=== PATIENT | male | born 1940 | race Caucasian/White ===

== ENCOUNTER 2019-05-25 17:40 | Inpatient (IN) ==
[2019-05-25] MEDS ORDERED: LACTATED RINGERS 1,000 ML IV ONE (18:02)
--- NOTE | 2019-05-25 18:04 | Emergency Department Note ---
Altered Mental Status HPI - General Chief Complaint: Altered Mental Status Stated Complaint: Weakness, Confusion Time Seen by Provider: 05/25/19 17:51 Source: patient Mode of arrival: ambulatory Limitations: no limitations - History of Present Illness HPI Narrative: This patient apparently locked himself in his house and could not figure out how to get out. He is somewhat confused but does not have specific complaints other than feeling very weak in general. - Related Data Home Medications Medication Instructions Recorded Confirmed Levothyroxine [Synthroid] 0 mcg PO DAILY 11/04/18 OLANZapine [Zyprexa] 2.5 mg PO HS 05/26/19 05/26/19 Omeprazole [Prilosec] 20 mg PO DAILY 05/26/19 05/26/19 Ondansetron [Zofran ODT] 4 mg PO PRN PRN 05/26/19 05/26/19 Allergies Allergy/AdvReac Type Severity Reaction Status Date / Time clindamycin Allergy Intermediate Rash Verified 05/26/19 02:31 amitriptyline [AMITRIPTYLINE] Allergy Mild RASH, Verified 11/04/18 09:58 ITCHING Zolpidem [From Ambien] AdvReac Unknown Verified 05/26/19 02:32 BEE STING Allergy Intermediate EXCESSIVE Uncoded 01/14/15 14:18 SWELLING, ITCHING From VOLTAREN Allergy Mild RASH, Uncoded 01/14/15 14:18 ITCHING Review of Systems All systems ED: reviewed and negative except as stated. Past Medical History - Past Medical History [facility] Narrative: Medical History (Last Updated 10/11/18 @ 16:52 by Robert Ghosh DO) Hypertension, essential (Chronic) COPD (chronic obstructive pulmonary disease) (Chronic) Hypothyroidism, acquired (Chronic) Valvular heart disease (Chronic) Macular degeneration (Chronic) Degenerative joint disease, shoulder, right (Chronic) BPH (benign prostatic hyperplasia) (Chronic) Fibromyalgia (Chronic) Chronic fatigue syndrome (Chronic) Hearing loss (Chronic) Pneumonia (Resolved) Past Surgical History (Last Updated 10/11/18 @ 16:45 by Robert Ghosh DO) H/O pyloroplasty (Acute) H/O vagotomy (Acute) History of repair of hiatal hernia (Acute) S/P cataract surgery (Acute) S/P tonsillectomy (Acute) Medical history: Reports: hyperlipidemia, valvular heart disease. Denies: CHF, CVA, DM, hypertension, myocardial infarction, renal disease, TIA Psychiatric history: Denies: anxiety, depression Surgical history ED: Reports: non-contributory - Social History smoking status: Never smoker Alcohol use: Reports: Rarely (May be up to a few times a month and occasional beer) Drug use: Reports: none. Denies: marijuana Physical Exam Limitations: no limitations General appearance: alert Head: atraumatic Eye: Present: normal appearance ENT: Present: normal exam Neck: Present: normal inspection Chest: Present: normal inspection Respiratory: Present: normal lung sounds bilaterally Cardiovascular: Present: regular rate, normal rhythm, normal heart sounds Abdominal: Present: soft. Absent: distention, tenderness Neurological: Present: alert Psychiatric: Present: normal affect Skin: Present: warm, dry Course Vital Signs Temperature 97.9 F 05/25/19 17:45 Pulse Rate 80 05/25/19 17:45 Respiratory Rate 20 05/25/19 17:45 Blood Pressure 135/90 05/25/19 17:45 Pulse Oximetry (%) 99 05/25/19 17:45 Temperature 98.0 F 05/26/19 04:09 Pulse Rate 78 05/26/19 04:09 Respiratory Rate 18 05/26/19 04:09 Blood Pressure 138/75 05/26/19 04:09 Pulse Oximetry (%) 98 05/26/19 04:09 Altered Mental Status - MDM Narrative Medical decision making narrative: This patient has a history of dementia and lives alone and is becoming too confused to live alone anymore. [facility] did evaluate him as well and agree that he is unsafe to go home. He will be admitted to the hospital. - Lab Data Lab results reviewed: Yes I reviewed the patient's lab results. Result diagrams: 05/26/19 04:48 05/26/19 04:48 Lab Results 05/25/19 05/25/19 05/25/19 Range/Units 18:14 18:14 18:14 WBC 6.1 (4.5-11.0) K/mcL RBC 4.16 L (4.50-5.90) M/mcL Hgb 13.3 L (13.5-16.5) g/dL Hct 39.3 L (41.0-55.0) % MCV 94.3 (80.0-100.0) fL MCH 31.8 (26.0-34.0) pg MCHC 33.7 (31.0-36.0) g/dL RDW 15.1 H (11.5-14.5) % Plt Count 262 (140-440) K/mcL MPV 7.7 (7.4-10.4) fL Gran % 68.2 (38.0-78.0) % Lymph % (Auto) 19.5 (15.5-49.0) % [place] % (Auto) 11.4 (1.0-12.0) % Eos % (Auto) 0.6 (0.0-7.0) % Baso % (Auto) 0.3 (0.0-2.0) % Gran # 4.1 (1.8-8.0) K/mcL Lymph # (Auto) 1.2 L (1.5-4.8) K/mcL [place] # (Auto) 0.7 (0.1-0.9) K/mcL Eos # (Auto) 0 (0.0-0.7) K/mcL Baso # (Auto) 0 (0.0-0.3) K/mcL Sodium 136 (133-145) mmol/L Potassium 4.3 (3.3-5.1) mmol/L Chloride 102 (96-108) mmol/L Carbon Dioxide 20 L (22-30) mmol/L Anion Gap 14.0 (8-16) BUN 20 (8-23) mg/dl Creatinine 1.2 (0.7-1.2) mg/dl GFR Calculation 57 Glucose 143 H (70-105) mg/dL Calcium 9.3 (8.6-10.4) mg/dl Total Bilirubin 0.3 (0.0-1.0) mg/dL AST 14 (0-37) U/l ALT 9 (0-40) U/l Alkaline Phosphatase 97 (39-117) U/L Troponin T < 0.01 (0-0.03) ng/ml Total Protein 7.1 (5.9-8.4) gm/dL Albumin 4.0 (3.2-5.2) gm/dL Globulin 3.1 (2.2-3.7) gm/dL Albumin/Globulin Ratio 1.3 (1.0-2.3) TSH (0.27-5.01) uIU/ml Urine Color Urine Appearance Urine pH (5.0-9.0) Ur Specific [place] (1.000-1.035) Urine Protein (NEG) mg/dL Urine Glucose (UA) (NEG) mg/dL Urine Ketones (NEG) mg/dL Urine Occult Blood (<0.03) mg/dL Urine Nitrate (NEG) Urine Bilirubin (NEG) mg/dL Urine Urobilinogen (NEG) mg/dL Ur Leukocyte Esterase (NEG) /uL Urine RBC (0-1) /hpf Urine WBC (0-4) /hpf Ur Squamous Epith Cells (0-4) /hpf Ur Transition Epith Cell (0-2) /hpf Urine Bacteria (0) /hpf Urine Mucus (0) /hpf Ur Culture Indicated? 05/25/19 05/25/19 Range/Units 18:14 20:25 WBC (4.5-11.0) K/mcL RBC (4.50-5.90) M/mcL Hgb (13.5-16.5) g/dL Hct (41.0-55.0) % MCV (80.0-100.0) fL MCH (26.0-34.0) pg MCHC (31.0-36.0) g/dL RDW (11.5-14.5) % Plt Count (140-440) K/mcL MPV (7.4-10.4) fL Gran % (38.0-78.0) % Lymph % (Auto) (15.5-49.0) % [place] % (Auto) (1.0-12.0) % Eos % (Auto) (0.0-7.0) % Baso % (Auto) (0.0-2.0) % Gran # (1.8-8.0) K/mcL Lymph # (Auto) (1.5-4.8) K/mcL [place] # (Auto) (0.1-0.9) K/mcL Eos # (Auto) (0.0-0.7) K/mcL Baso # (Auto) (0.0-0.3) K/mcL Sodium (133-145) mmol/L Potassium (3.3-5.1) mmol/L Chloride (96-108) mmol/L Carbon Dioxide (22-30) mmol/L Anion Gap (8-16) BUN (8-23) mg/dl Creatinine (0.7-1.2) mg/dl GFR Calculation Glucose (70-105) mg/dL Calcium (8.6-10.4) mg/dl Total Bilirubin (0.0-1.0) mg/dL AST (0-37) U/l ALT (0-40) U/l Alkaline Phosphatase (39-117) U/L Troponin T (0-0.03) ng/ml Total Protein (5.9-8.4) gm/dL Albumin (3.2-5.2) gm/dL Globulin (2.2-3.7) gm/dL Albumin/Globulin Ratio (1.0-2.3) TSH 0.03 L (0.27-5.01) uIU/ml Urine Color Yellow Urine Appearance Clear Urine pH 6.0 (5.0-9.0) Ur Specific [place] 1.013 (1.000-1.035) Urine Protein Neg (NEG) mg/dL Urine Glucose (UA) Negative (NEG) mg/dL Urine Ketones 5/tr A (NEG) mg/dL Urine Occult Blood Neg (<0.03) mg/dL Urine Nitrate Neg (NEG) Urine Bilirubin Neg (NEG) mg/dL Urine Urobilinogen Neg (NEG) mg/dL Ur Leukocyte Esterase 75 A (NEG) /uL Urine RBC 2 H (0-1) /hpf Urine WBC 13 H (0-4) /hpf Ur Squamous Epith Cells < 1 (0-4) /hpf Ur Transition Epith Cell < 1 (0-2) /hpf Urine Bacteria 0 (0) /hpf Urine Mucus Few (0) /hpf Ur Culture Indicated? Yes - Radiology Data Radiology results reviewed: Yes I reviewed the patient's radiology results. Disposition Pt seen by [facility] only: No Clinical Impression: Altered mental status, Dementia Disposition: Xfer As Inpt ([facility])
[2019-05-25 18:52] LABS: Basophils # (Auto) 0 K/mcL (0.0-0.3); Basophils % (Auto) 0.3 % (0.0-2.0); Eosinophils # (Auto) 0 K/mcL (0.0-0.7); Eosinophils % (Auto) 0.6 % (0.0-7.0); Granulocytes % (Auto) 68.2 % (38.0-78.0); Hematocrit 39.3 % (41.0-55.0); Hemoglobin 13.3 g/dL (13.5-16.5); Lymphocytes # (Auto) 1.2 K/mcL (1.5-4.8); Lymphocytes % (Auto) 19.5 % (15.5-49.0); Mean Cell Volume 94.3 fL (80.0-100.0); Mean Corpuscular HGB Conc 33.7 g/dL (31.0-36.0); Mean Platelet Volume 7.7 fL (7.4-10.4); Monocytes # (Auto) 0.7 K/mcL (0.1-0.9); Monocytes % (Auto) 11.4 % (1.0-12.0); Platelet Count 262 K/mcL (140-440); RBC 4.16 M/mcL (4.50-5.90); Red Cell Distribution Width 15.1 % (11.5-14.5); WBC 6.1 K/mcL (4.5-11.0)
[2019-05-25 19:16] LABS: ALT/SGPT 9 U/l (0-40); AST/SGOT 14 U/l (0-37); Albumin/Globulin Ratio 1.3 (1.0-2.3); Alkaline Phosphatase 97 U/L (39-117); Bilirubin,Total 0.3 mg/dL (0.0-1.0); Blood Urea Nitrogen 20 mg/dl (8-23); Calcium 9.3 mg/dl (8.6-10.4); Carbon Dioxide 20 mmol/L (22-30); Chloride 102 mmol/L (96-108); Globulin 3.1 gm/dL (2.2-3.7); Glomerular Filtration Rate 57; Glucose 143 mg/dL (70-105)
--- NOTE | 2019-05-25 21:04 | Cat Scan Report ---
CLINICAL INFORMATION: Confusion COMPARISON: None. TECHNIQUE: 2.5 mm helical slices were obtained in the skull base to vertex. Following reconstruction, axial reformatted images were reviewed at bone and parenchymal windows. The exam was performed using radiation dose optimization techniques including, but not limited to, automated exposure control, adjustment of the mA and/or kV according to patient size and use of iterative reconstruction technique. FINDINGS: The ventricles, sulci, fissures, and cisterns are symmetrically enlarged compatible with mild age-related atrophy. No extra-axial fluid collections are identified. Moderate patchy chronic ischemic change in the deep cerebral white matter expected for age. The cerebrum, brainstem and cerebellum are, otherwise, unremarkable. There is no evidence of hemorrhage, mass effect, or edema. Bone windows show no osseous abnormality. IMPRESSION: Mild atrophy and chronic ischemic changes of the deep cerebral white matter expected for age. No acute finding Interpreted and Authenticated by: Denny Aranda 05/25/19
[2019-05-25 21:10] LABS: Appearance,Urine CLEAR; Bacteria,Urine 0 /hpf (0); Bilirubin,Urine NEG (NEG); Color,Urine YELLOW; Culture Indicated,Urine YES; Glucose,Urine (UA) NEGATIVE (NEG); Ketones,Urine 5/TR mg/dL (NEG); Leukocyte Esterase,Urine 75 /uL (NEG); Mucus,Urine FEW /hpf (0); Nitrate,Urine NEG (NEG); Protein,Urine NEG (NEG); Specific Gravity,Urine 1.013 (1.000-1.035); Urine Blood NEG mg/dL (<0.03); Urine RBC 2 /hpf (0-1); Urine Squamous Epithelial Cell < 1 /hpf (0-4); Urine Transitional Epi Cells < 1 /hpf (0-2); Urine WBC 13 /hpf (0-4); Urobilinogen,Urine NEG (NEG)
[2019-05-25] MEDS ORDERED: NITROFURANTOIN SR 100 MG CAPSULE PO ONE (21:37)
[2019-05-25] MEDS ORDERED: OLANZapine 5 MG TABLET PO PRN (22:24)
--- NOTE | 2019-05-25 22:28 | Internal Med History&Physical ---
Medical - H&P: HPI Patient information: Note initiated : 05/25/19 at 10:25 pm Service Date, if different from initiated Date: [] Patient: Simone Schwab a 79 y/o M admitted on for Weakness, Confusion. Chief Complaint: [] History of present illness: Mr. Schwab is a 79 year old M Who currently locked himself in the house called EMS EMS arrived and they were able to get in some way. He was reported patient displayed significant confusion but became agitated by the term. EMS also reported being weak. Patient says he was [email or web address] and has been here for 3 days. Admits that he was locked in his house but did not feel like it was a big deal. I told him that urinary tract infection and that we will get treated here in the hospital, he said he could go home and take pills for that. [facility] visited with the patient has felt the patient was not safe to go home. Work-up was positive for urinary tract infection. She denies any fever chills chest pain shortness of breath headache cough. CT of the brain showed mild atrophy and chronic ischemic changes but no acute findings. Patient was admitted to [facility] and February for ischemic colitis and ended up undergoing oratory laparotomy with subsequent colectomy and colostomy. During his hospitalization he demonstrated sundowning and responded well to Zyprexa. [facility] and patient says he was there for about 3 weeks. He has been to [facility] 20 times over the last few months for various complaints mostly relating to his colostomy care but also complaining of weakness chest pain shortness of breath and fall on various occasions. She says he lives by himself occasionally with the son. He has left from the hospital and from the ED in the past AGAINST MEDICAL ADVICE. Review of Systems: Pertinent positives above. Denies headache/fever/chills/nausea/vomiting/chest or abdominal pain/cough/dyspnea/diarrhea. Many 10 point review of system reviewed negative Medical - H&P: PM Medical history: Medical History (Last Updated 10/11/18 @ 16:52 by Robert Ghosh DO) Hypertension, essential (Chronic) COPD (chronic obstructive pulmonary disease) (Chronic) Hypothyroidism, acquired (Chronic) Valvular heart disease (Chronic) Macular degeneration (Chronic) Degenerative joint disease, shoulder, right (Chronic) BPH (benign prostatic hyperplasia) (Chronic) Fibromyalgia (Chronic) Chronic fatigue syndrome (Chronic) Hearing loss (Chronic) Pneumonia (Resolved) Past Surgical History (Last Updated 10/11/18 @ 16:45 by Robert Ghosh DO) H/O pyloroplasty (Acute) H/O vagotomy (Acute) History of repair of hiatal hernia (Acute) S/P cataract surgery (Acute) S/P tonsillectomy (Acute) 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 for ischemic colitis Family history: Patient's mother at age 60 due to comp occasions associated old age Social history: Denies tobacco use occasional use alcohol Occasionally uses cane Lives by himself and occasionally with his son use Medical - H&P: Meds Home Medications Medication Instructions Recorded Confirmed Type Levothyroxine [Synthroid] 0 mcg PO DAILY 11/04/18 History Allergies Allergy/AdvReac Type Severity Reaction Status Date / Time amitriptyline [AMITRIPTYLINE] Allergy Mild RASH, Verified 11/04/18 09:58 ITCHING BEE STING Allergy Intermediate EXCESSIVE Uncoded 01/14/15 14:18 SWELLING, ITCHING From VOLTAREN Allergy Mild RASH, Uncoded 01/14/15 14:18 ITCHING Medical - H&P: Exam - Constitutional Vitals: Temp Pulse Resp BP Pulse Ox 97.9 F 81 15 145/96 97 05/25/19 17:45 05/25/19 18:16 05/25/19 21:02 05/25/19 18:31 05/25/19 18:16 Exam: General: Alert, Awake, No acute Distress Eyes/N/T: EOMI, PEERL, DMM Head/Neck: neck supple, normocephalic atraumatic CV: RRR, No murmurs, normal s1/s2 Pulm: Clear b/l, no wheezing/rhonchi/rales Abd: soft, nontender, +BS x4 Ext: no clubbing/cyanosis/edema Neuro: A&Ox4, no focal deficits, moves all extremities, CN 2-12 grossly intact, symmetrical strength b/l upper/lower, sensations intact b/l upper/lower, does appear to have some cognitive impairment in that talks about being [place] here for 3 days and made a few other statements that I could not understand. Skin: warm/dry Medical - H&P: Reslt - Labs CBC & Chem 7: 05/25/19 18:14 05/25/19 18:14 Labs: Short CBC 05/25/19 Range/Units 18:14 WBC 6.1 (4.5-11.0) K/mcL Hgb 13.3 L (13.5-16.5) g/dL Hct 39.3 L (41.0-55.0) % Plt Count 262 (140-440) K/mcL BMP 05/25/19 18:14 Sodium 136 Potassium 4.3 Chloride 102 Carbon Dioxide 20 L BUN 20 Creatinine 1.2 Glucose 143 H Calcium 9.3 Cardiac Enzymes 05/25/19 Range/Units 18:14 Troponin T < 0.01 (0-0.03) ng/ml Liver Function 05/25/19 Range/Units 18:14 Total Bilirubin 0.3 (0.0-1.0) mg/dL AST 14 (0-37) U/l ALT 9 (0-40) U/l Alkaline Phosphatase 97 (39-117) U/L Albumin 4.0 (3.2-5.2) gm/dL Urine 05/25/19 Range/Units 20:25 Urine Color Yellow Urine Appearance Clear Urine pH 6.0 (5.0-9.0) Ur Specific [place] 1.013 (1.000-1.035) Urine Protein Neg (NEG) mg/dL Urine Glucose (UA) Negative (NEG) mg/dL - Impressions The brain with atrophy and ischemic changes but nothing acute Medical - H&P: A/P - Narrative A/P Narrative: A: *UTI: *Encephalopathy, acute on chronic superimposed on underlying dementia: 2/2 above *Dementia: *h/o ischemic colitis with colectomy/colostomy in February @ [facility]: *COPD: *Hypothyroidism: *GERD: * P: -Rocephin, pending UC -IVF -Risk for delirium, PRN Zyprexa -Continue home Zyprexa nightly - -Case management for placement -PT/OT -ppx: Lovenox/home PPI
[2019-05-25] MEDS ORDERED: cefTRIAXone 1 GM VIAL ONE (23:31)
[2019-05-26] MEDS ORDERED: OLANZapine 2.5 MG TABLET PO ONE ×2 (00:30→00:34)
[2019-05-26] MEDS ORDERED: LACTULOSE 20 GM/30 ML ORAL.SOL PO PRN (00:51)
[2019-05-26] MEDS ORDERED: MAGNESIUM SULFATE 2 GM/50 ML BAG IV PRN (00:51)
[2019-05-26] MEDS ORDERED: POLYETHYLENE GLYCOL 3350 17 GM PACKET PO PRN (00:51)
[2019-05-26] MEDS ORDERED: IPRATROPIUM/ALBUTEROL 3 ML AMPUL.NEB NEB PRN (00:51)
[2019-05-26] MEDS ORDERED: POTASSIUM CHLORIDE 20 MEQ TABLET PO PRN ×2 (00:51)
[2019-05-26] MEDS ORDERED: PROMETHAZINE 25 MG TABLET PO PRN (00:51)
[2019-05-26] MEDS ORDERED: POTASSIUM CHLORIDE 40 MEQ in DEXTROSE 5% IN WATER 500 ML IV PRN (00:51)
[2019-05-26] MEDS ORDERED: ONDANSETRON 4 MG/2 ML VIAL IV PRN (00:51)
[2019-05-26] MEDS ORDERED: cefTRIAXone 1 GM in DEXTROSE 5% IN WATER 50 ML IV SCH (00:51)
[2019-05-26] MEDS ORDERED: SENNOSIDES 1 TABLET PO PRN (00:51)
[2019-05-26] MEDS ORDERED: OLANZapine 5 MG TABLET PO PRN (00:51)
[2019-05-26] MEDS: OLANZapine 5 MG TABLET PO SCH ×2 (02:02→21:24)
[2019-05-26] MEDS: 0.9 % SODIUM CHLORIDE 1,000 ML IV SCH ×2 (02:15→15:08)
[2019-05-26] MEDS: 0.9 % SODIUM CHLORIDE 10 ML SYRINGE IV SCH ×3 (05:35→21:25)
[2019-05-26 06:34] LABS: Basophils # (Auto) 0 K/mcL (0.0-0.3); Basophils % (Auto) 0.1 % (0.0-2.0); Eosinophils # (Auto) 0.1 K/mcL (0.0-0.7); Eosinophils % (Auto) 1.1 % (0.0-7.0); Hematocrit 36.4 % (41.0-55.0); Hemoglobin 12.2 g/dL (13.5-16.5); Lymphocytes # (Auto) 1.7 K/mcL (1.5-4.8); Lymphocytes % (Auto) 25.1 % (15.5-49.0); Mean Cell Volume 95.7 fL (80.0-100.0); Mean Corpuscular HGB Conc 33.4 g/dL (31.0-36.0); Mean Platelet Volume 7.7 fL (7.4-10.4); Monocytes # (Auto) 0.8 K/mcL (0.1-0.9); Monocytes % (Auto) 11.7 % (1.0-12.0); Platelet Count 231 K/mcL (140-440); Red Cell Distribution Width 14.4 % (11.5-14.5); WBC 6.8 K/mcL (4.5-11.0)
[2019-05-26 06:48] LABS: ALT/SGPT 8 U/l (0-40); AST/SGOT 12 U/l (0-37); Albumin 3.6 gm/dL (3.2-5.2); Albumin/Globulin Ratio 1.2 (1.0-2.3); Alkaline Phosphatase 86 U/L (39-117); Bilirubin,Direct < 0.2 mg/dL (0.0-0.3); Bilirubin,Total 0.2 mg/dL (0.0-1.0); Blood Urea Nitrogen 16 mg/dl (8-23); Calcium 8.7 mg/dl (8.6-10.4); Carbon Dioxide 23 mmol/L (22-30); Chloride 106 mmol/L (96-108); Globulin 2.9 gm/dL (2.2-3.7); Glomerular Filtration Rate 57; Glucose 104 mg/dL (70-105); Lactate Dehydrogenase 171 U/L (94-250); Phosphorous 4.2 mg/dL (2.7-4.5); Triglycerides 59 mg/dl (<150); Uric Acid 5.9 mg/dL (2.5-8.0)
--- NOTE | 2019-05-26 07:26 | Internal Med Progress Note ---
Medical - PN: Subj Patient information: Note initiated : 05/26/19 at 7:22 am Service Date, if different from initiated Date: [] Patient: Simone Schwab a 79 y/o M admitted on 05/26/19 for Weakness, Confusion. Chief Complaint: [] Interval history: Mr. Schwab is a 79 year old M Who currently locked himself in the house called EMS EMS arrived and they were able to get in some way. He was reported patient displayed significant confusion but became agitated by the term. EMS also reported being weak. [facility] been here for [facility]. Admits that he was locked in his house but did not feel like it was a big deal. I told him that urinary tract infection and that we will get treated here in the hospital, he said he could go home and take pills for that. [facility] visited with the patient has felt the patient was not safe to go home. Work-up was positive for urinary tract infection. She denies any fever chills chest pain shortness of breath headache cough. CT of the brain showed mild atrophy and chronic ischemic changes but no acute findings. Patient was admitted to [facility] and February for ischemic colitis and ended up undergoing oratory laparotomy with subsequent colectomy and colostomy. During his hospitalization he demonstrated sundowning and responded well to Zyprexa. He was discharged to a detention facility and patient says he was there for about 3 weeks. He has been to [facility] 20 times over the last few months for various complaints mostly relating to his colostomy care but also complaining of weakness chest pain shortness of breath and fall on various occasions. She says he lives by himself occasionally with the son. He has left from the hospital and from the ED in the past AGAINST MEDICAL ADVICE. 05/26 Slept well. No new complaints. No overnight events. Review of Systems: denies headache/fever/chills/nausea/vomiting/chest or abdominal p ain/cough/dyspnea/diarrhea. Otherwise see above. - Constitutional Vitals: Vital Signs Temp Pulse Resp BP Pulse Ox 98.0 F 78 18 138/75 98 05/26/19 04:09 05/26/19 04:09 05/26/19 04:09 05/26/19 04:09 05/26/19 04:09 Period Temp Pulse Resp BP Sys/Rodriguez Pulse Ox Last 24 Hr 97.8 F-98.0 F 77-82 15-23 135-150/75-96 97-99 Intake and Output 05/25/19 05/26/19 05/26/19 21:59 05:59 13:59 Intake Total 1000 100 Output Total 150 125 Balance 1000 -50 -125 Weight 65.771 kg 62 kg Intake & Output: Intake & Output 05/25/19 05/26/19 05/26/19 21:59 05:59 13:59 Intake Total 1000 100 Output Total 150 125 Balance 1000 -50 -125 Weight 65.771 kg 62 kg Intake: IV 1000 Lactated Ringers 1,000 ml @ 1000 Wide Open IV BOLUS ONE Rx#: [id number] Oral 100 Output: Void Amount 150 125 Other: Urine Color Light Jada Light Jada Urine Odor Strong Strong Stool Color Brown Stool Consistency Liquid Exam: General: Alert, Awake, No acute Distress Eyes/N/T: EOMI, Head/Neck: neck supple, CV: RRR, No murmurs, Pulm: Clear b/l, no wheezing/rhonchi/rales Abd: soft, nontender, +BS x4 Ext: no clubbing/cyanosis/edema Neuro: Alert, oriented, no focal deficits, moves all extremities, Skin: warm/dry Medical - PN: Obj Da - Labs CBC & Chem 7: 05/26/19 04:48 05/26/19 04:48 Labs: Abnormal Lab Results 05/26/19 05/25/19 05/25/19 04:48 20:25 18:14 RBC 3.80 L Hgb 12.2 L Hct 36.4 L RDW Lymph # (Auto) Carbon Dioxide Glucose TSH 0.03 L Urine Ketones 5/tr A Ur Leukocyte Esterase 75 A Urine RBC 2 H Urine WBC 13 H 05/25/19 05/25/19 18:14 18:14 RBC 4.16 L Hgb 13.3 L Hct 39.3 L RDW 15.1 H Lymph # (Auto) 1.2 L Carbon Dioxide 20 L Glucose 143 H TSH Urine Ketones Ur Leukocyte Esterase Urine RBC Urine WBC Meds: Medications Acetaminophen (Tylenol) 650 mg PO Q6HP PRN PRN Reason: PAIN/FEVER > 101 Albuterol/Ipratropium (Duoneb) 3 ml NEB Q4HP PRN PRN Reason: Shortness Of Breath Ceftriaxone Sodium (Rocephin) 1 gm IV Q24H [facility] Docusate Sodium (Colace) 100 mg PO BID [facility] Enoxaparin Sodium (Lovenox) 40 mg SQ DAILY [facility] Famotidine (Pepcid) 20 mg PO BID [facility] Potassium Chloride 40 meq/ (Dextrose) 520 mls @ 130 mls/hr IV UD PRN PRN Reason: Potassium < 3 Magnesium Sulfate (Magnesium Sulfate) 2 gm in 50 mls @ 50 mls/hr IV UD PRN PRN Reason: Magnesium </= 1.6 Sodium Chloride (Sodium Chloride 0.9%) 1,000 mls @ 100 mls/hr IV .Q10H [facility] Stop: 05/26/19 20:50 Last Admin: 05/26/19 02:15 Dose: 100 mls/hr Documented by: Lactulose (Cephulac) 10 gm PO DAILYP PRN PRN Reason: Constipation Olanzapine (Zyprexa) 5 mg PO BIDP PRN PRN Reason: Agitation Olanzapine (Zyprexa) 2.5 mg PO HS [facility] Last Admin: 05/26/19 02:02 Dose: Not Given Documented by: Ondansetron HCl (Zofran) 4 mg IV Q4HP PRN PRN Reason: Nausea And Vomiting Polyethylene Glycol (Miralax) 17 gm PO DAILYP PRN PRN Reason: Constipation Potassium Chloride (Kdur) 40 meq PO UD PRN PRN Reason: Potssium is 3-3.5 Potassium Chloride (Kdur) 40 meq PO UD PRN PRN Reason: Potassium < 3 Promethazine HCl (Phenergan) 0 mg PO Q6HP PRN PRN Reason: Nausea And Vomiting Senna (Senokot) 2 tab PO HSP PRN PRN Reason: Constipation Sodium Chloride (Saline Flush) 10 ml IV Q8 [facility] Last Admin: 05/26/19 05:35 Dose: Not Given Documented by: Medical - PN: A/P - Time Spent With Patient Total time spent is greater than 50% in coordination of care (as documented) at patient's floor/unit and/or counseling patient: - Narrative A/P Narrative: A: *UTI: *Encephalopathy, acute on chronic superimposed on underlying dementia: 2/2 above -improved, likely at baseline *Dementia: may not be safe for self-care at home; has been to [facility] ED 20x's in past few months for various complaints, most of which have been colostomy care *h/o ischemic colitis with colectomy/colostomy in February @ [facility]: *COPD(not on home o2): *Hypothyroidism: low TSH, T4 slightly high, T3 ok *GERD: * P: -Rocephin, pending UC -high Risk for delirium, PRN Zyprexa -Continue home Zyprexa nightly -decrease home levothyroxine, -clarify home meds -Case management for placement -PT/OT -ppx: Lovenox/home PPI Medical - PN: Qual - Stroke Symptom Onset Unknown: No - VTE Deep Vein Thrombosis/Pulmonary Embolism Present on Admission: No
[2019-05-26 07:59] LABS: Free T3 2.8 pg/ml (2.0-4.4); Free T4 (Free Thyroxine) 1.78 ng/dl (0.7-1.7)
[2019-05-26] MEDS: DOCUSATE SODIUM 100 MG CAPSULE PO SCH ×2 (08:44→21:24)
[2019-05-26] MEDS: ENOXAPARIN 40 MG/0.4 ML SYRINGE SQ SCH (08:44)
[2019-05-26] MEDS: FAMOTIDINE 20 MG TABLET PO SCH ×2 (08:44→21:25)
[2019-05-26] MEDS: cefTRIAXone 1 GM VIAL IV SCH (15:08)
--- NOTE | 2019-05-26 17:11 | Discharge Summary ---
Medical - DS: Prov Patient information: Note initiated : 05/26/19 at 5:07 pm Service Date, if different from initiated Date: [] Patient: Simone Schwab 79 y/o M admitted on 05/26/19 for Weakness, Confusion. Chief Complaint: [] Date of admission: 05/26/19 00:08 Discharge date: 05/28/19 Primary care physician: Denny Land Consults: 05/25/19 Consult to Physician [CONS] Stat Comment: Consulting Provider: Javi Leigh Reason For Exam: Physician to Consult Medical - DS: Meds - Discharge Medications Prescriptions: Ciprofloxacin [Cipro] 500 mg PO BID #6 tab Levothyroxine [Synthroid] 100 mcg PO QAMAC #30 tab Active and Home Medications: Home Medications Levothyroxine Sodium [Synthroid] 137 mcg PO QAM 05/26/19 [History Confirmed 05/26/19 Last Taken Unknown] OLANZapine [Zyprexa] 2.5 mg PO HS 05/26/19 [History Confirmed 05/26/19 Last Taken Unknown] Omeprazole [Prilosec] 20 mg PO DAILY 05/26/19 [History Confirmed 05/26/19 Last Taken Unknown] Ondansetron [Zofran ODT] 4 mg PO PRN PRN 05/26/19 [History Confirmed 05/26/19 Last Taken Unknown] Medical - DS: Hosp Hospital Course: Mr. Schwab is a 79 year old M Who currently locked himself in the house called EMS EMS arrived and they were able to get in some way. He was reported patient displayed significant confusion but became agitated by the term. EMS also reported being weak. Patient says he was [employer] and has been here for 3 days. Admits that he was locked in his house but did not feel like it was a big deal. I told him that urinary tract infection and that we will get treated here in the hospital, he said he could go home and take pills for that. [facility] visited with the patient has felt the patient was not safe to go home. Work-up was positive for urinary tract infection. She denies any fever chills chest pain shortness of breath headache cough. CT of the brain showed mild atrophy and chronic ischemic changes but no acute findings. Patient was admitted to [facility] for ischemic colitis and ended up undergoing oratory laparotomy with subsequent colectomy and colostomy. During his hospitalization he demonstrated sundowning and responded well to Zyprexa. He was discharged to a detention facility and patient says he was there for about 3 weeks. He has been to [facility] 20 times over the last few months for various complaints mostly relating to his colostomy care but also complaining of weakness chest pain shortness of breath and fall on various occasions. She says he lives by himself occasionally with the son. He has left from the hospital and from the ED in the past AGAINST MEDICAL ADVICE. 05/26 Slept well. No new complaints. No overnight events. Seen by [facility] today and cleared from their standpoint 05/27 No overnight events. Sleeping well. [facility] evaluated him yesterday felt he was safe to go home. Apparently adult protective services felt it was not safe for him to be at home based on a visit to the house. Discussed this with the patient and he seemed to be okay with going to facility at this time. However, it would not be surprised if he ended up leaving AMA back to his house. 05/28 Slept well no new complaints. Wanting to go somewhere whether or not at home or to the facility. Case management working on placement. Plan was to attempt to get him to a facility patient was initially agreeable however patient's tired of waiting around for her to be arranged and decided to leave AGAINST MEDICAL ADVICE. Discharge diagnosis: UTI confusion dementia COPD hypothyroidism - Time Spent with Patient Total time spent providing and/or coordinating discharge services: Greater than 30 minutes Medical - DS: Exam - Constitutional Vitals: Vital Signs Temp Pulse Pulse Pulse Resp BP BP 05/26/19 12:00 97.0 F 78 18 05/26/19 08:00 97.0 F 78 18 05/26/19 04:09 98.0 F 78 18 05/26/19 00:08 97.8 F 82 82 18 141/79 05/25/19 23:16 77 148/85 05/25/19 23:13 77 150/90 05/25/19 21:02 15 05/25/19 18:31 16 145/96 05/25/19 18:16 81 23 H 147/91 05/25/19 18:00 18 145/93 05/25/19 17:55 79 20 135/90 05/25/19 17:45 97.9 F 80 20 135/90 BP Pulse Ox 05/26/19 12:00 110/61 100 05/26/19 08:00 129/54 100 05/26/19 04:09 138/75 98 05/26/19 00:08 141/79 97 05/25/19 23:16 97 05/25/19 23:13 98 05/25/19 21:02 05/25/19 18:31 05/25/19 18:16 97 05/25/19 18:00 05/25/19 17:55 98 05/25/19 17:45 99 Intake and Output 05/26/19 05/26/19 05/26/19 05:59 13:59 21:59 Intake Total 100 2180 Output Total 150 425 Balance -50 1755 Intake: IV 1000 Sodium Chloride 0.9% 1,000 ml @ 1000 100 mls/hr IV .Q10H [place] Rx#: [id number] Oral 100 1180 Output: Void Amount 150 425 Other: Meal Lunch Percent of Meal Consumed 100% Feeding Ability Assist with Tray Set Up Urine Color Light Jada Light Jada Urine Odor Strong Strong Stool Color Brown Brown Yellow Stool Consistency Liquid Liquid # Voids 3 Weight 62 kg Medical - DS: Data Labs on day of discharge: Labs from last 24 hours 05/26/19 05/26/19 05/26/19 04:48 04:48 04:48 WBC 6.8 RBC 3.80 L Hgb 12.2 L Hct 36.4 L MCV 95.7 MCH 32.0 MCHC 33.4 RDW 14.4 Plt Count 231 MPV 7.7 Gran % 62.0 Lymph % (Auto) 25.1 [place] % (Auto) 11.7 Eos % (Auto) 1.1 Baso % (Auto) 0.1 Gran # 4.2 Lymph # (Auto) 1.7 [place] # (Auto) 0.8 Eos # (Auto) 0.1 Baso # (Auto) 0 Sodium 139 Potassium 4.1 Chloride 106 Carbon Dioxide 23 Anion Gap 10.0 BUN 16 Creatinine 1.2 GFR Calculation 57 Glucose 104 Uric Acid 5.9 Calcium 8.7 Phosphorus 4.2 Magnesium 2.3 Total Bilirubin 0.2 Direct Bilirubin < 0.2 GGT 18 AST 12 ALT 8 Alkaline Phosphatase 86 Lactate Dehydrogenase 171 Troponin T Total Protein 6.5 Albumin 3.6 Globulin 2.9 Albumin/Globulin Ratio 1.2 Triglycerides 59 TSH Free T4 1.78 H Free T3 pg/mL 2.8 Urine Color Urine Appearance Urine pH Ur Specific [place] Urine Protein Urine Glucose (UA) Urine Ketones Urine Occult Blood Urine Nitrate Urine Bilirubin Urine Urobilinogen Ur Leukocyte Esterase Urine RBC Urine WBC Ur Squamous Epith Cells Ur Transition Epith Cell Urine Bacteria Urine Mucus Ur Culture Indicated? 05/25/19 05/25/19 05/25/19 20:25 18:14 18:14 WBC RBC Hgb Hct MCV MCH MCHC RDW Plt Count MPV Gran % Lymph % (Auto) [place] % (Auto) Eos % (Auto) Baso % (Auto) Gran # Lymph # (Auto) [place] # (Auto) Eos # (Auto) Baso # (Auto) Sodium Potassium Chloride Carbon Dioxide Anion Gap BUN Creatinine GFR Calculation Glucose Uric Acid Calcium Phosphorus Magnesium Total Bilirubin Direct Bilirubin GGT AST ALT Alkaline Phosphatase Lactate Dehydrogenase Troponin T < 0.01 Total Protein Albumin Globulin Albumin/Globulin Ratio Triglycerides TSH 0.03 L Free T4 Free T3 pg/mL Urine Color Yellow Urine Appearance Clear Urine pH 6.0 Ur Specific [place] 1.013 Urine Protein Neg Urine Glucose (UA) Negative Urine Ketones 5/tr A Urine Occult Blood Neg Urine Nitrate Neg Urine Bilirubin Neg Urine Urobilinogen Neg Ur Leukocyte Esterase 75 A Urine RBC 2 H Urine WBC 13 H Ur Squamous Epith Cells < 1 Ur Transition Epith Cell < 1 Urine Bacteria 0 Urine Mucus Few Ur Culture Indicated? Yes 05/25/19 05/25/19 18:14 18:14 WBC 6.1 RBC 4.16 L Hgb 13.3 L Hct 39.3 L MCV 94.3 MCH 31.8 MCHC 33.7 RDW 15.1 H Plt Count 262 MPV 7.7 Gran % 68.2 Lymph % (Auto) 19.5 [place]ahan % (Auto) 11.4 Eos % (Auto) 0.6 Baso % (Auto) 0.3 Gran # 4.1 Lymph # (Auto) 1.2 L [place] # (Auto) 0.7 Eos # (Auto) 0 Baso # (Auto) 0 Sodium 136 Potassium 4.3 Chloride 102 Carbon Dioxide 20 L Anion Gap 14.0 BUN 20 Creatinine 1.2 GFR Calculation 57 Glucose 143 H Uric Acid Calcium 9.3 Phosphorus Magnesium Total Bilirubin 0.3 Direct Bilirubin GGT AST 14 ALT 9 Alkaline Phosphatase 97 Lactate Dehydrogenase Troponin T Total Protein 7.1 Albumin 4.0 Globulin 3.1 Albumin/Globulin Ratio 1.3 Triglycerides TSH Free T4 Free T3 pg/mL Urine Color Urine Appearance Urine pH Ur Specific [place] Urine Protein Urine Glucose (UA) Urine Ketones Urine Occult Blood Urine Nitrate Urine Bilirubin Urine Urobilinogen Ur Leukocyte Esterase Urine RBC Urine WBC Ur Squamous Epith Cells Ur Transition Epith Cell Urine Bacteria Urine Mucus Ur Culture Indicated? Preliminary micro results at discharge 05/25/19 20:24 Urine Culture - Preliminary Urine - Clean Void [facility] Medical - DS: A/P - Patient/Caregiver Discharge Instructions Activity: increase activity as tolerated Diet: Regular Diet Additional Instructions: Follow-up thyroid function tests with PCP outpatient Prescriptions: Ciprofloxacin [Cipro] 500 mg PO BID #6 tab Levothyroxine [Synthroid] 100 mcg PO QAMAC #30 tab - Follow up Plan Follow up with: Denny Land DO [Primary Care Provider] - Disposition: Left Against Medical Advice Prognosis: Undetermined Rehab Potential: Fair Overall status at discharge: patient is back to baseline Medical - DS: Qual - VTE Deep Vein Thrombosis/Pulmonary Embolism Present on Admission: No
[2019-05-27] MEDS: 0.9 % SODIUM CHLORIDE 10 ML SYRINGE IV SCH ×3 (06:09→20:19)
--- NOTE | 2019-05-27 09:17 | Internal Med Progress Note ---
Medical - PN: Subj Patient information: Note initiated : 05/27/19 at 9:13 am Service Date, if different from initiated Date: [] Patient: Simone Schwab a 79 y/o M admitted on 05/26/19 for Weakness, Confusion. Chief Complaint: [] Interval history: Mr. Schwab is a 79 year old M Who currently locked himself in the house called EMS EMS arrived and they were able to get in some way. He was reported patient displayed significant confusion but became agitated by the term. EMS also reported being weak. [facility] been here for [facility]. Admits that he was locked in his house but did not feel like it was a big deal. I told him that urinary tract infection and that we will get treated here in the hospital, he said he could go home and take pills for that. [facility] visited with the patient has felt the patient was not safe to go home. Work-up was positive for urinary tract infection. She denies any fever chills chest pain shortness of breath headache cough. CT of the brain showed mild atrophy and chronic ischemic changes but no acute findings. Patient was admitted to [facility] and February for ischemic colitis and ended up undergoing oratory laparotomy with subsequent colectomy and colostomy. During his hospitalization he demonstrated sundowning and responded well to Zyprexa. He was [facility] to a [facility] facility and patient says he was there for about 3 weeks. He has been to [facility] 20 times over the last few months for various complaints mostly relating to his colostomy care but also complaining of weakness chest pain shortness of breath and fall on various occasions. She says he lives by himself occasionally with the son. He has left from the hospital and from the ED in the past AGAINST MEDICAL ADVICE. 05/26 Slept well. No new complaints. No overnight events. 05/27 No overnight events. Sleeping well. [facility] evaluated him yesterday felt he was safe to go home. Apparently adult protective services felt it was not safe for him to be at home based on a visit to the house. Discussed this with the patient and he seemed to be okay with going to facility at this time. However, it would not be surprised if he ended up leaving AMA back to his house. Review of Systems: denies headache/fever/chills/nausea/vomiting/chest or abdominal pain/co ugh/dyspnea/diarrhea. Otherwise see above. - Constitutional Vitals: Vital Signs Temp Pulse Resp BP Pulse Ox 98.1 F 71 20 127/83 97 05/27/19 08:00 05/27/19 08:00 05/27/19 08:00 05/27/19 08:00 05/27/19 08:00 Period Temp Pulse Resp BP Sys/Rodriguez Pulse Ox Last 24 Hr 97.0 F-98.4 F 63-84 16-20 110-137/58-83 97-100 Intake and Output 05/26/19 05/27/19 05/27/19 21:59 05:59 13:59 Intake Total 940 1220 Output Total 400 1225 Balance 540 -5 Weight 63.276 kg Intake & Output: Intake & Output 05/26/19 05/27/19 05/27/19 21:59 05:59 13:59 Intake Total 940 1220 Output Total 400 1225 Balance 540 -5 Weight 63.276 kg Intake: Oral 940 1220 Output: Void Amount 350 700 Stool 50 525 Other: Meal Nourishment/Supplement Percent of Meal Consumed 100% Feeding Ability Independent Nourishment/Supplement name Icecream, Tea, Hot [place], Juice, [place] Crackers Urine Appearance Clear Clear Urine Color Dark Yellow Dark Yellow Urine Odor Strong Strong Stool Color Brown Brown Yellow Stool Consistency Liquid Soft Liquid # Voids 1 1 1 Exam: General: Alert, Awake, No acute Distress Eyes/N/T: EOMI, Head/Neck: neck supple, CV: RRR, No murmurs, Pulm: Clear b/l, no wheezing/rhonchi/rales Abd: soft, nontender, +BS x4 Ext: no clubbing/cyanosis/edema Neuro: Alert, oriented, no focal deficits, moves all extremities, Skin: warm/dry Medical - PN: Obj Da - Labs CBC & Chem 7: 05/26/19 04:48 05/26/19 04:48 Labs: Abnormal Lab Results 05/26/19 05/26/19 05/25/19 04:48 04:48 20:25 RBC 3.80 L Hgb 12.2 L Hct 36.4 L RDW Lymph # (Auto) Carbon Dioxide Glucose TSH Free T4 1.78 H Urine Ketones 5/tr A Ur Leukocyte Esterase 75 A Urine RBC 2 H Urine WBC 13 H 05/25/19 05/25/19 05/25/19 18:14 18:14 18:14 RBC 4.16 L Hgb 13.3 L Hct 39.3 L RDW 15.1 H Lymph # (Auto) 1.2 L Carbon Dioxide 20 L Glucose 143 H TSH 0.03 L Free T4 Urine Ketones Ur Leukocyte Esterase Urine RBC Urine WBC Meds: Medications Acetaminophen (Tylenol) 650 mg PO Q6HP PRN PRN Reason: PAIN/FEVER > 101 Albuterol/Ipratropium (Duoneb) 3 ml NEB Q4HP PRN PRN Reason: Shortness Of Breath Ceftriaxone Sodium (Rocephin) 1 gm IV Q24H [facility] Last Admin: 05/26/19 15:08 Dose: 1 gm Documented by: Docusate Sodium (Colace) 100 mg PO BID [facility] Last Admin: 05/26/19 21:24 Dose: Not Given Documented by: Enoxaparin Sodium (Lovenox) 40 mg SQ DAILY [facility] Last Admin: 05/26/19 08:44 Dose: 40 mg Documented by: Famotidine (Pepcid) 20 mg PO BID [facility] Last Admin: 05/26/19 21:25 Dose: 20 mg Documented by: Potassium Chloride 40 meq/ (Dextrose) 520 mls @ 130 mls/hr IV UD PRN PRN Reason: Potassium < 3 Magnesium Sulfate (Magnesium Sulfate) 2 gm in 50 mls @ 50 mls/hr IV UD PRN PRN Reason: Magnesium </= 1.6 Lactulose (Cephulac) 10 gm PO DAILYP PRN PRN Reason: Constipation Olanzapine (Zyprexa) 5 mg PO BIDP PRN PRN Reason: Agitation Olanzapine (Zyprexa) 2.5 mg PO HS [facility] Last Admin: 05/26/19 21:24 Dose: 2.5 mg Documented by: Ondansetron HCl (Zofran) 4 mg IV Q4HP PRN PRN Reason: Nausea And Vomiting Polyethylene Glycol (Miralax) 17 gm PO DAILYP PRN PRN Reason: Constipation Potassium Chloride (Kdur) 40 meq PO UD PRN PRN Reason: Potssium is 3-3.5 Potassium Chloride (Kdur) 40 meq PO UD PRN PRN Reason: Potassium < 3 Promethazine HCl (Phenergan) 0 mg PO Q6HP PRN PRN Reason: Nausea And Vomiting Senna (Senokot) 2 tab PO HSP PRN PRN Reason: Constipation Sodium Chloride (Saline Flush) 10 ml IV Q8 [place] Last Admin: 05/27/19 06:09 Dose: Not Given Documented by: Medical - PN: A/P - Time Spent With Patient Total time spent is greater than 50% in coordination of care (as documented) at patient's floor/unit and/or counseling patient: - Narrative A/P Narrative: A: *UTI: *Encephalopathy, acute on chronic superimposed on underlying dementia: 2/2 above -improved, likely at baseline *Dementia: may not be safe for self-care at home; has been to [facility] ED 20x's in past few months for various complaints, most of which have been colostomy care *h/o ischemic colitis with colectomy/colostomy in February @ [facility]: *COPD(not on home o2): *Hypothyroidism: low TSH, T4 slightly high, T3 ok *GERD: * P: -Rocephin to cipro -high Risk for delirium, PRN Zyprexa -cleared by Q, but APS feels his home environment might not be safe - thus looking for placement -Continue home Zyprexa nightly -decrease home levothyroxine, -clarify home meds -Case management for placement -PT/OT -ppx: Lovenox/home PPI Medical - PN: Qual - Stroke Symptom Onset Unknown: No - VTE Deep Vein Thrombosis/Pulmonary Embolism Present on Admission: No
[2019-05-27] MEDS: ENOXAPARIN 40 MG/0.4 ML SYRINGE SQ SCH (14:48)
[2019-05-27] MEDS: cefTRIAXone 1 GM VIAL IV SCH (14:49)
[2019-05-27] MEDS: FAMOTIDINE 20 MG TABLET PO SCH ×2 (14:50→20:19)
[2019-05-27] MEDS: DOCUSATE SODIUM 100 MG CAPSULE PO SCH ×2 (14:50→20:19)
[2019-05-27] MEDS: ACETAMINOPHEN 325 MG TABLET PO PRN (17:14)
[2019-05-27] MEDS: CIPROFLOXACIN 500 MG TABLET PO SCH (20:18)
[2019-05-27] MEDS: OLANZapine 5 MG TABLET PO SCH (20:18)
[2019-05-27] MEDS ORDERED: MELATONIN 3 MG TABLET PO PRN (22:10)
[2019-05-28] MEDS: ACETAMINOPHEN 325 MG TABLET PO PRN (00:11)
[2019-05-28] MEDS: 0.9 % SODIUM CHLORIDE 10 ML SYRINGE IV SCH (05:24)
[2019-05-28] MEDS ORDERED: LEVOTHYROXINE 100 MCG TABLET PO SCH (07:30)
[2019-05-28] MEDS: CIPROFLOXACIN 500 MG TABLET PO SCH (10:02)
[2019-05-28] MEDS: DOCUSATE SODIUM 100 MG CAPSULE PO SCH ×2 (10:02→10:08)
[2019-05-28] MEDS: ENOXAPARIN 40 MG/0.4 ML SYRINGE SQ SCH (10:03)
[2019-05-28] MEDS: FAMOTIDINE 20 MG TABLET PO SCH (10:03)
--- NOTE | 2019-05-28 10:22 | Internal Med Progress Note ---
Medical - PN: Subj Patient information: Note initiated : 05/28/19 at 10:20 am Service Date, if different from initiated Date: [] Patient: Simone Schwab a 79 y/o M admitted on 05/26/19 for Weakness, Confusion. Chief Complaint: [] Interval history: Mr. Schwab is a 79 year old M Who currently locked himself in the house called EMS EMS arrived and they were able to get in some way. He was reported patient displayed significant confusion but became agitated by the term. EMS also reported being weak. [facility] has been here for [facility] days. Admits that he was locked in his house but did not feel like it was a big deal. I told him that urinary tract infection and that we will get treated here in the hospital, he said he could go home and take pills for that. [facility] visited with the patient has felt the patient was not safe to go home. Work-up was positive for urinary tract infection. She denies any fever chills chest pain shortness of breath headache cough. CT of the brain showed mild atrophy and chronic ischemic changes but no acute findings. Patient was admitted to [facility] and February for ischemic colitis and ended up undergoing oratory laparotomy with subsequent colectomy and colostomy. During his hospitalization he demonstrated sundowning and responded well to Zyprexa. [facility] and patient says he was there for about 3 weeks. He has been to [facility] 20 times over the last few months for various complaints mostly relating to his colostomy care but also complaining of weakness chest pain shortness of breath and fall on various occasions. She says he lives by himself occasionally with the son. He has left from the hospital and from the ED in the past AGAINST MEDICAL ADVICE. 05/26 Slept well. No new complaints. No overnight events. 05/27 No overnight events. Sleeping well. [facility] evaluated him yesterday felt he was safe to go home. Apparently adult protective services felt it was not safe for him to be at home based on a visit to the house. Discussed this with the patient and he seemed to be okay with going to facility at this time. However, it would not be surprised if he ended up leaving AMA back to his house. 05/28 Slept well no new complaints. Wanting to go somewhere whether or not at home or to the facility. Case management working on placement. Review of Systems: denies headache/fever/chills/nausea/vomiting/chest or abdominal pain/cough/dyspnea/diarrhea. Otherwise see above. - Constitutional Vitals: Vital Signs Temp Pulse Resp BP Pulse Ox 98.5 F 77 24 H 115/72 99 05/28/19 07:57 05/28/19 07:57 05/28/19 07:57 05/28/19 07:57 05/28/19 07:57 Period Temp Pulse Resp BP Sys/Rodriguez Pulse Ox Last 24 Hr 98.1 F-98.5 F 67-84 16-24 110-127/67-73 96-100 Intake and Output 05/27/19 05/28/19 05/28/19 21:59 05:59 13:59 Intake Total 480 800 Output Total 700 Balance 480 100 Weight 63.049 kg Intake & Output: Intake & Output 05/27/19 05/28/19 05/28/19 21:59 05:59 13:59 Intake Total 480 800 Output Total 700 Balance 480 100 Weight 63.049 kg Intake: Oral 480 800 Output: Void Amount 250 Stool 450 Other: Meal Dinner Percent of Meal Consumed 100% Urine Appearance Clear Urine Color Dark Yellow Urine Odor Normal Stool Size Moderate Stool Color Brown Brown Stool Consistency Soft Soft Liquid # Voids 1 1 Exam: General: Alert, Awake, No acute Distress Eyes/N/T: EOMI, Head/Neck: neck supple, CV: RRR, No murmurs, Pulm: Clear b/l, no wheezing/rhonchi/rales Abd: soft, nontender, +BS x4 Ext: no clubbing/cyanosis/edema Neuro: Alert, oriented, no focal deficits, moves all extremities, Skin: warm/dry Medical - PN: Obj Da - Labs CBC & Chem 7: 05/26/19 04:48 05/26/19 04:48 Labs: Abnormal Lab Results 05/26/19 05/26/19 05/25/19 04:48 04:48 20:25 RBC 3.80 L Hgb 12.2 L Hct 36.4 L RDW Lymph # (Auto) Carbon Dioxide Glucose TSH Free T4 1.78 H Urine Ketones 5/tr A Ur Leukocyte Esterase 75 A Urine RBC 2 H Urine WBC 13 H 10/13/19 10/13/19 10/13/19 18:14 18:14 18:14 RBC 4.16 L Hgb 13.3 L Hct 39.3 L RDW 15.1 H Lymph # (Auto) 1.2 L Carbon Dioxide 20 L Glucose 143 H TSH 0.03 L Free T4 Urine Ketones Ur Leukocyte Esterase Urine RBC Urine WBC Meds: Medications Acetaminophen (Tylenol) 650 mg PO Q6HP PRN PRN Reason: PAIN/FEVER > 101 Last Admin: 05/28/19 00:11 Dose: 650 mg Documented by: Albuterol/Ipratropium (Duoneb) 3 ml NEB Q4HP PRN PRN Reason: Shortness Of Breath Ciprofloxacin (Cipro) 500 mg PO BID [facility]; Protocol Last Admin: 05/28/19 10:02 Dose: 500 mg Documented by: Docusate Sodium (Colace) 100 mg PO BID [facility] Last Admin: 05/28/19 10:08 Dose: Not Given Documented by: Enoxaparin Sodium (Lovenox) 40 mg SQ DAILY [facility] Last Admin: 05/28/19 10:03 Dose: 40 mg Documented by: Famotidine (Pepcid) 20 mg PO BID [facility] Last Admin: 05/28/19 10:03 Dose: 20 mg Documented by: Potassium Chloride 40 meq/ (Dextrose) 520 mls @ 130 mls/hr IV UD PRN PRN Reason: Potassium < 3 Magnesium Sulfate (Magnesium Sulfate) 2 gm in 50 mls @ 50 mls/hr IV UD PRN PRN Reason: Magnesium </= 1.6 Lactulose (Cephulac) 10 gm PO DAILYP PRN PRN Reason: Constipation Levothyroxine Sodium (Synthroid) 100 mcg PO QAMAC [facility] Last Admin: 05/28/19 10:02 Dose: 100 mcg Documented by: Melatonin (Melatonin 3mg Tablet) 3 mg PO HSP PRN PRN Reason: Insomnia Last Admin: 05/27/19 23:24 Dose: 3 mg Documented by: Olanzapine (Zyprexa) 5 mg PO BIDP PRN PRN Reason: Agitation Last Admin: 05/27/19 21:49 Dose: 5 mg Documented by: Olanzapine (Zyprexa) 2.5 mg PO HS [facility] Last Admin: 05/27/19 20:18 Dose: 2.5 mg Documented by: Ondansetron HCl (Zofran) 4 mg IV Q4HP PRN PRN Reason: Nausea And Vomiting Polyethylene Glycol (Miralax) 17 gm PO DAILYP PRN PRN Reason: Constipation Potassium Chloride (Kdur) 40 meq PO UD PRN PRN Reason: Potssium is 3-3.5 Potassium Chloride (Kdur) 40 meq PO UD PRN PRN Reason: Potassium < 3 Promethazine HCl (Phenergan) 0 mg PO Q6HP PRN PRN Reason: Nausea And Vomiting Senna (Senokot) 2 tab PO HSP PRN PRN Reason: Constipation Sodium Chloride (Saline Flush) 10 ml IV Q8 [place] Last Admin: 05/28/19 05:24 Dose: 10 ml Documented by: Medical - PN: A/P - Time Spent With Patient Total time spent is greater than 50% in coordination of care (as documented) at patient's floor/unit and/or counseling patient: - Narrative A/P Narrative: A: *UTI: *Encephalopathy, acute on chronic superimposed on underlying dementia: 2/2 above -Resolved, likely at baseline *Dementia: may not be safe for self-care at home; has been to [facility] ED 20x's in past few months for various complaints, most of which have been colostomy care *h/o ischemic colitis with colectomy/colostomy in February @ [facility]: *COPD(not on home o2): *Hypothyroidism: low TSH, T4 slightly high, T3 ok *GERD: * P: -cipro -high Risk for delirium, PRN Zyprexa -cleared by Q, but APS feels his home environment might not be safe - thus looking for placement -Continue home Zyprexa nightly -decreased home levothyroxine, -Case management for placement -PT/OT -ppx: Lovenox/home PPI Medical - PN: Qual - Stroke Symptom Onset Unknown: No - VTE Deep Vein Thrombosis/Pulmonary Embolism Present on Admission: No
== END 2019-05-28 14:20 | disposition left against medical advice (07) | DRG 690 ==
LOC: ED 17:40 → ICU 05-26 00:08 → MEDSUR 05-26 15:40
PROVIDERS: ADMIT Internal Medicine; ATTEND Internal Medicine

== ENCOUNTER 2019-08-26 14:33 | Observation (INO) ==
--- NOTE | 2019-08-26 15:39 | XRay Report ---
CLINICAL INFORMATION: knee pain COMPARISON: None. 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 No osseous abnormality.. Mild periarticular soft tissue swelling seen bilaterally. 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
[2019-08-26 15:46] LABS: Appearance,Urine CLEAR; Bacteria,Urine 0 /hpf (0); Bilirubin,Urine NEG (NEG); Color,Urine YELLOW; Culture Indicated,Urine NO; Glucose,Urine (UA) NEGATIVE (NEG); Ketones,Urine NEG (NEG); Leukocyte Esterase,Urine NEG /uL (NEG); Mucus,Urine FEW /hpf (0); Nitrate,Urine NEG (NEG); Protein,Urine NEG (NEG); Specific Gravity,Urine 1.009 (1.000-1.035); Urine Blood NEG mg/dL (<0.03); Urine RBC 1 /hpf (0-1); Urine Squamous Epithelial Cell 0 /hpf (0-4); Urine Transitional Epi Cells < 1 /hpf (0-2); Urine WBC 2 /hpf (0-4); Urobilinogen,Urine NEG (NEG)
[2019-08-26 15:51] LABS: Basophils # (Auto) 0.06 K/mcL (0.00-0.30); Basophils % (Auto) 0.6 % (0.0-2.0); Eosinophils # (Auto) 0.04 K/mcL (0.00-0.70); Eosinophils % (Auto) 0.4 % (0.0-7.0); Granulocytes % (Auto) 72.7 % (38.0-78.0); Hemoglobin 12.6 g/dL (13.7-17.5); Lymphocytes # (Auto) 1.86 K/mcL (1.50-4.80); Lymphocytes % (Auto) 17.9 % (15.5-49.0); Mean Cell Volume 89.6 fL (80.0-100.0); Mean Corpuscular HGB Conc 34.1 g/dL (31.0-36.0); Mean Platelet Volume 9.7 fL (7.4-10.4); Monocytes # (Auto) 0.87 K/mcL (0.10-0.90); Monocytes % (Auto) 8.4 % (1.0-12.0); Platelet Count 286 K/mcL (140-440); RBC 4.13 M/mcL (4.63-6.08); Red Cell Distribution Width 14.6 % (11.5-14.5); WBC 10.4 K/mcL (4.50-11.00)
[2019-08-26 16:08] LABS: ALT/SGPT 11 U/l (0-40); AST/SGOT 18 U/l (0-37); Albumin 4.1 gm/dL (3.2-5.2); Albumin/Globulin Ratio 1.5 (1.0-2.3); Alkaline Phosphatase 102 U/L (39-117); Bilirubin,Total 0.5 mg/dL (0.0-1.0); Blood Urea Nitrogen 19 mg/dl (8-23); Calcium 9.6 mg/dl (8.6-10.4); Carbon Dioxide 19 mmol/L (22-30); Chloride 102 mmol/L (96-108); Globulin 2.8 gm/dL (2.2-3.7); Glomerular Filtration Rate 71; Glucose 104 mg/dL (70-105)
--- NOTE | 2019-08-26 17:00 | Emergency Department Note ---
Altered Mental Status HPI - General Chief Complaint: Altered Mental Status Stated Complaint: altered mental status Time Seen by Provider: 08/26/19 14:43 Source: patient, EMS Mode of arrival: ambulatory Limitations: altered mental status - History of Present Illness HPI Narrative: 79-year-old male with known moderate to severe dementia comes in via EMS at the request of APS. Apparently he left [facility] yesterday AMA after being admitted for abdominal pain. He was found wandering outside inappropriately dressed for the weather; his ostomy bag was inappropriately open. He is unable to give me any meaningful history or review of system. However he does note that he is having some knee and ankle pain-although he is walking around without difficulty I reviewed the notes from [facility]-he was discharged AMA with some Zyprexa - Related Data Home Medications Medication Instructions Recorded Confirmed aspirin 325 mg tablet 325 mg PO QDAY 07/21/19 07/21/19 divalproex 250 mg tablet,delayed 250 mg PO BID 07/21/19 07/21/19 release ibuprofen 200 mg tablet 200 mg PO QID PRN 07/21/19 07/21/19 levothyroxine 137 mcg capsule 137 mcg PO QDAY 07/21/19 07/21/19 melatonin 10 mg capsule 10 mg PO HS PRN 07/21/19 07/21/19 tamsulosin 0.4 mg capsule 0.4 mg PO QDAY 07/21/19 07/21/19 Allergies Allergy/AdvReac Type Severity Reaction Status Date / Time bee venom protein (honey bee) Allergy Severe Swelling Verified 07/21/19 12:05 amitriptyline [AMITRIPTYLINE] AdvReac Mild RASH, Verified 07/21/19 12:05 ITCHING clindamycin AdvReac Mild Rash Verified 07/21/19 12:05 Diclofenac [From Voltaren] AdvReac Mild Rash Verified 07/21/19 12:05 Zolpidem [From Ambien] AdvReac Unknown Unknown Verified 07/21/19 12:05 Review of Systems Limitations: ROS unobtainable due to patients medical condition Past Medical History - Past Medical History [facility] Narrative: Medical History (Last Reviewed 07/22/19 @ 08:37 by Aruna Wild DO) Hypertension, essential (Chronic) COPD (chronic obstructive pulmonary disease) (Chronic) Hypothyroidism, acquired (Chronic) Valvular heart disease (Chronic) Macular degeneration (Chronic) Degenerative joint disease, shoulder, right (Chronic) BPH (benign prostatic hyperplasia) (Chronic) Fibromyalgia (Chronic) Chronic fatigue syndrome (Chronic) Hearing loss (Chronic) Pneumonia (Resolved) Past Surgical History (Last Updated 10/11/18 @ 16:45 by Robert Ghosh DO) H/O pyloroplasty (Acute) H/O vagotomy (Acute) History of repair of hiatal hernia (Acute) S/P cataract surgery (Acute) S/P tonsillectomy (Acute) Medical history: Reports: hyperlipidemia, valvular heart disease, other (Ischemic colitis). Denies: CHF, CVA, DM, hypertension, myocardial infarction, renal disease, TIA Psychiatric history: Denies: anxiety, depression Surgical history ED: Reports: colostomy - Social History smoking status: Former smoker Alcohol use: Reports: Rarely (May be up to a few times a month and occasional beer) Drug use: Reports: none. Denies: marijuana Physical Exam Patient is able to walk and move around without difficulty. He does not appear to have any balance issues. Thin male. No acute distress resting comfortably. Normocephalic atraumatic. Conjunctive are clear sclera white nonicteric. No nasal discharge or congestion. Oropharynx pink and moist. Posterior pharynx is clear. Neck is supple without lymphadenopathy thyromegaly or carotid bruit. Heart is regular rate and rhythm no murmur appreciated. Lungs are clear to auscultation bilaterally without wheezes rales rhonchi or respiratory distress. Abdomen is soft nontender nondistended. Ostomy bag in place with moderate amount of stool which appears to be normal brown. I do not see any leaking. No pedal edema. Alert oriented only x1. He does not know where he is why he is here or what is going on. He does answer questions but oftentimes he is totally inappropriate and appears to have no sense of social norms. His behavior is random and unpredictable. His thoughts are tangential and delusional. He confabulates. Limitations: altered mental status Course Vital Signs Pulse Rate 65 08/26/19 14:40 Respiratory Rate 18 08/26/19 14:40 Blood Pressure 152/70 08/26/19 14:40 Pulse Oximetry (%) 100 08/26/19 14:40 Pulse Rate 66 08/26/19 17:36 Respiratory Rate 16 08/26/19 17:36 Blood Pressure 152/70 08/26/19 17:36 Pulse Oximetry (%) 99 08/26/19 17:36 Altered Mental Status - Lab Data Lab results reviewed: Yes I reviewed the patient's lab results. Result diagrams: 08/26/19 15:14 08/26/19 15:14 Lab Results 08/26/19 08/26/19 08/26/19 Range/Units 14:42 15:14 15:14 WBC 10.4 (4.50-11.00) K/mcL RBC 4.13 L (4.63-6.08) M/mcL Hgb 12.6 L (13.7-17.5) g/dL Hct 37.0 L (40.1-51.0) % MCV 89.6 (80.0-100.0) fL MCH 30.5 (26.0-34.0) pg MCHC 34.1 (31.0-36.0) g/dL RDW 14.6 H (11.5-14.5) % Plt Count 286 (140-440) K/mcL MPV 9.7 (7.4-10.4) fL Gran % 72.7 (38.0-78.0) % Lymph % (Auto) 17.9 (15.5-49.0) % [place] % (Auto) 8.4 (1.0-12.0) % Eos % (Auto) 0.4 (0.0-7.0) % Baso % (Auto) 0.6 (0.0-2.0) % Gran # 7.54 (1.80-8.00) K/mcL Lymph # (Auto) 1.86 (1.50-4.80) K/mcL [place] # (Auto) 0.87 (0.10-0.90) K/mcL Eos # (Auto) 0.04 (0.00-0.70) K/mcL Baso # (Auto) 0.06 (0.00-0.30) K/mcL VBG Lactic Acid (0.5-2.0) mmol/L Sodium 137 (133-145) mmol/L Potassium 3.7 (3.3-5.1) mmol/L Chloride 102 (96-108) mmol/L Carbon Dioxide 19 L (22-30) mmol/L Anion Gap 16.0 (8-16) BUN 19 (8-23) mg/dl Creatinine 1.0 (0.7-1.2) mg/dl GFR Calculation 71 Glucose 104 (70-105) mg/dL Calcium 9.6 (8.6-10.4) mg/dl Total Bilirubin 0.5 (0.0-1.0) mg/dL AST 18 (0-37) U/l ALT 11 (0-40) U/l Alkaline Phosphatase 102 (39-117) U/L Total Protein 6.9 (5.9-8.4) gm/dL Albumin 4.1 (3.2-5.2) gm/dL Globulin 2.8 (2.2-3.7) gm/dL Albumin/Globulin Ratio 1.5 (1.0-2.3) Urine Color Yellow Urine Appearance Clear Urine pH 7.0 (5.0-9.0) Ur Specific [place] 1.009 (1.000-1.035) Urine Protein Neg (NEG) mg/dL Urine Glucose (UA) Negative (NEG) mg/dL Urine Ketones Neg (NEG) mg/dL Urine Occult Blood Neg (<0.03) mg/dL Urine Nitrate Neg (NEG) Urine Bilirubin Neg (NEG) mg/dL Urine Urobilinogen Neg (NEG) mg/dL Ur Leukocyte Esterase Neg (NEG) /uL Urine RBC 1 (0-1) /hpf Urine WBC 2 (0-4) /hpf Ur Squamous Epith Cells 0 (0-4) /hpf Ur Transition Epith Cell < 1 (0-2) /hpf Urine Bacteria 0 (0) /hpf Urine Mucus Few (0) /hpf Ur Culture Indicated? No 08/26/19 Range/Units 15:14 WBC (4.50-11.00) K/mcL RBC (4.63-6.08) M/mcL Hgb (13.7-17.5) g/dL Hct (40.1-51.0) % MCV (80.0-100.0) fL MCH (26.0-34.0) pg MCHC (31.0-36.0) g/dL RDW (11.5-14.5) % Plt Count (140-440) K/mcL MPV (7.4-10.4) fL Gran % (38.0-78.0) % Lymph % (Auto) (15.5-49.0) % [place] % (Auto) (1.0-12.0) % Eos % (Auto) (0.0-7.0) % Baso % (Auto) (0.0-2.0) % Gran # (1.80-8.00) K/mcL Lymph # (Auto) (1.50-4.80) K/mcL [place] # (Auto) (0.10-0.90) K/mcL Eos # (Auto) (0.00-0.70) K/mcL Baso # (Auto) (0.00-0.30) K/mcL VBG Lactic Acid 2.1 H (0.5-2.0) mmol/L Sodium (133-145) mmol/L Potassium (3.3-5.1) mmol/L Chloride (96-108) mmol/L Carbon Dioxide (22-30) mmol/L Anion Gap (8-16) BUN (8-23) mg/dl Creatinine (0.7-1.2) mg/dl GFR Calculation Glucose (70-105) mg/dL Calcium (8.6-10.4) mg/dl Total Bilirubin (0.0-1.0) mg/dL AST (0-37) U/l ALT (0-40) U/l Alkaline Phosphatase (39-117) U/L Total Protein (5.9-8.4) gm/dL Albumin (3.2-5.2) gm/dL Globulin (2.2-3.7) gm/dL Albumin/Globulin Ratio (1.0-2.3) Urine Color Urine Appearance Urine pH (5.0-9.0) Ur Specific [place] (1.000-1.035) Urine Protein (NEG) mg/dL Urine Glucose (UA) (NEG) mg/dL Urine Ketones (NEG) mg/dL Urine Occult Blood (<0.03) mg/dL Urine Nitrate (NEG) Urine Bilirubin (NEG) mg/dL Urine Urobilinogen (NEG) mg/dL Ur Leukocyte Esterase (NEG) /uL Urine RBC (0-1) /hpf Urine WBC (0-4) /hpf Ur Squamous Epith Cells (0-4) /hpf Ur Transition Epith Cell (0-2) /hpf Urine Bacteria (0) /hpf Urine Mucus (0) /hpf Ur Culture Indicated? - Radiology Data Radiology results reviewed: Yes I reviewed the patient's radiology results. I reviewed knee x-rays which show significant arthritis and loss of joint space Disposition Pt seen by SENIOR BACK END JAVA DEVELOPER/PA only: No Clinical Impression: Dementia Qualifiers: Dementia type: unspecified type Dementia behavioral disturbance: with behavioral disturbance Qualified Code(s): F03.91 - Unspecified dementia with behavioral disturbance Knee osteoarthritis Qualifiers: Osteoarthritis type: unspecified Laterality: bilateral Qualified Code(s): M17.0 - Bilateral primary osteoarthritis of knee Summary: Patient is clearly at his baseline dementia and we do not have any evidence of recurrent infection or inflammatory disease process to account for his worsening behavior. Suspect his dementia is just getting worse with behavioral disturbances becoming more common. While I do not have a medical diagnosis to admit the patient; APS agentMaddy, came and saw the patient. She is planning on placing him under guardianship with [facility] and looking for a home for him. He is a hoarder and cannot go home to his house nor can he go to the detention where he was before because of his violent behavior. He will need to go to a lockdown unit. He is on medical hold currently as he is a danger to himself and others because of his severe dementia-we cannot let him go home Bilateral knee x-rays show significant osteoarthritis. He is given Tylenol and then a little bit of hydrocodone later on for pain. He was given Toradol as well He was having trouble settling down so we gave him 5 mg of Haldol which worked for a little bit. We then gave him a little bit of Seroquel as the day wore on. He ended up getting a second dose for total of 200 mg. Patient was able to sleep later on the evening Disposition: Still a Patient Condition: Fair Referrals: Denny Land DO [Primary Care Provider] -
[2019-08-26] MEDS ORDERED: HALOPERIDOL LACTATE 5 MG/ML VIAL IM ONE (17:30)
[2019-08-26] MEDS ORDERED: ACETAMINOPHEN 325 MG TABLET PO ONE (18:37)
[2019-08-26] MEDS ORDERED: QUEtiapine 100 MG TABLET PO ONE ×2 (18:39→22:02)
[2019-08-26] MEDS ORDERED: KETOROLAC 10 MG TABLET PO ONE (20:13)
[2019-08-26] MEDS ORDERED: KETOROLAC 60 MG/2 ML VIAL IM ONE (21:21)
[2019-08-26] MEDS ORDERED: HYDROcodone/APAP 5/325MG TABLET PO ONE (23:23)
[2019-08-27] MEDS ORDERED: LORazepam 1 MG TABLET PO ONE ×2 (15:11→21:52)
[2019-08-27] MEDS ORDERED: HALOPERIDOL LACTATE 5 MG/ML VIAL IM ONE (17:17)
--- NOTE | 2019-08-27 21:17 | Emergency Department Note ---
Altered Mental Status HPI - General Chief Complaint: Altered Mental Status Stated Complaint: altered mental status Time Seen by Provider: 08/26/19 14:43 Source: patient, EMS Mode of arrival: ambulatory Limitations: altered mental status - History of Present Illness HPI Narrative: I took over care of this patient at [address] Naqvi. - Related Data Home Medications Medication Instructions Recorded Confirmed aspirin 325 mg tablet 325 mg PO QDAY 07/21/19 07/21/19 divalproex 250 mg tablet,delayed 250 mg PO BID 07/21/19 07/21/19 release ibuprofen 200 mg tablet 200 mg PO QID PRN 07/21/19 07/21/19 levothyroxine 137 mcg capsule 137 mcg PO QDAY 07/21/19 07/21/19 melatonin 10 mg capsule 10 mg PO HS PRN 07/21/19 07/21/19 tamsulosin 0.4 mg capsule 0.4 mg PO QDAY 07/21/19 07/21/19 Allergies Allergy/AdvReac Type Severity Reaction Status Date / Time bee venom protein (honey bee) Allergy Severe Swelling Verified 07/21/19 12:05 amitriptyline [AMITRIPTYLINE] AdvReac Mild RASH, Verified 07/21/19 12:05 ITCHING clindamycin AdvReac Mild Rash Verified 07/21/19 12:05 Diclofenac [From Voltaren] AdvReac Mild Rash Verified 07/21/19 12:05 Zolpidem [From Ambien] AdvReac Unknown Unknown Verified 07/21/19 12:05 Past Medical History - Past Medical History Medical history: Reports: hyperlipidemia, valvular heart disease, other (Ischemic colitis). Denies: CHF, CVA, DM, hypertension, myocardial infarction, renal disease, TIA Psychiatric history: Denies: anxiety, depression Surgical history ED: Reports: colostomy - Social History smoking status: Former smoker Alcohol use: Reports: Rarely (May be up to a few times a month and occasional beer) Drug use: Reports: none. Denies: marijuana Physical Exam Limitations: altered mental status Course Vital Signs Pulse Rate 65 08/26/19 14:40 Respiratory Rate 18 08/26/19 14:40 Blood Pressure 152/70 08/26/19 14:40 Pulse Oximetry (%) 100 08/26/19 14:40 Pulse Rate 77 08/27/19 23:09 Respiratory Rate 14 08/27/19 23:09 Blood Pressure 132/68 08/27/19 23:09 Pulse Oximetry (%) 94 08/27/19 23:09 Altered Mental Status - MDM Narrative Medical decision making narrative: This patient has been quite calm and stable throughout his stay here today. However he is been getting up and wandering vaughn does not seem to want to stay in his room. We did give him Ativan p.o. and finally some Haldol 5 mg IM. He is now in his room sleeping or watching TV. This patient continued to remain quite stable during the night. He was up walking around the ER occasionally. He requested something to help him sleep and we gave him 2 mg of Ativan p.o. He did sleep during the night. He has not been combative agitated or aggressive at all. At this time he still awaits placement. - Lab Data Result diagrams: 08/26/19 15:14 08/26/19 15:14 Lab Results 08/26/19 08/26/19 08/26/19 Range/Units 14:42 15:14 15:14 WBC 10.4 (4.50-11.00) K/mcL RBC 4.13 L (4.63-6.08) M/mcL Hgb 12.6 L (13.7-17.5) g/dL Hct 37.0 L (40.1-51.0) % MCV 89.6 (80.0-100.0) fL MCH 30.5 (26.0-34.0) pg MCHC 34.1 (31.0-36.0) g/dL RDW 14.6 H (11.5-14.5) % Plt Count 286 (140-440) K/mcL MPV 9.7 (7.4-10.4) fL Gran % 72.7 (38.0-78.0) % Lymph % (Auto) 17.9 (15.5-49.0) % [place] % (Auto) 8.4 (1.0-12.0) % Eos % (Auto) 0.4 (0.0-7.0) % Baso % (Auto) 0.6 (0.0-2.0) % Gran # 7.54 (1.80-8.00) K/mcL Lymph # (Auto) 1.86 (1.50-4.80) K/mcL [place] # (Auto) 0.87 (0.10-0.90) K/mcL Eos # (Auto) 0.04 (0.00-0.70) K/mcL Baso # (Auto) 0.06 (0.00-0.30) K/mcL VBG Lactic Acid (0.5-2.0) mmol/L Sodium 137 (133-145) mmol/L Potassium 3.7 (3.3-5.1) mmol/L Chloride 102 (96-108) mmol/L Carbon Dioxide 19 L (22-30) mmol/L Anion Gap 16.0 (8-16) BUN 19 (8-23) mg/dl Creatinine 1.0 (0.7-1.2) mg/dl GFR Calculation 71 Glucose 104 (70-105) mg/dL Calcium 9.6 (8.6-10.4) mg/dl Total Bilirubin 0.5 (0.0-1.0) mg/dL AST 18 (0-37) U/l ALT 11 (0-40) U/l Alkaline Phosphatase 102 (39-117) U/L Total Protein 6.9 (5.9-8.4) gm/dL Albumin 4.1 (3.2-5.2) gm/dL Globulin 2.8 (2.2-3.7) gm/dL Albumin/Globulin Ratio 1.5 (1.0-2.3) Urine Color Yellow Urine Appearance Clear Urine pH 7.0 (5.0-9.0) Ur Specific [place] 1.009 (1.000-1.035) Urine Protein Neg (NEG) mg/dL Urine Glucose (UA) Negative (NEG) mg/dL Urine Ketones Neg (NEG) mg/dL Urine Occult Blood Neg (<0.03) mg/dL Urine Nitrate Neg (NEG) Urine Bilirubin Neg (NEG) mg/dL Urine Urobilinogen Neg (NEG) mg/dL Ur Leukocyte Esterase Neg (NEG) /uL Urine RBC 1 (0-1) /hpf Urine WBC 2 (0-4) /hpf Ur Squamous Epith Cells 0 (0-4) /hpf Ur Transition Epith Cell < 1 (0-2) /hpf Urine Bacteria 0 (0) /hpf Urine Mucus Few (0) /hpf Ur Culture Indicated? No 08/26/19 Range/Units 15:14 WBC (4.50-11.00) K/mcL RBC (4.63-6.08) M/mcL Hgb (13.7-17.5) g/dL Hct (40.1-51.0) % MCV (80.0-100.0) fL MCH (26.0-34.0) pg MCHC (31.0-36.0) g/dL RDW (11.5-14.5) % Plt Count (140-440) K/mcL MPV (7.4-10.4) fL Gran % (38.0-78.0) % Lymph % (Auto) (15.5-49.0) % [place] % (Auto) (1.0-12.0) % Eos % (Auto) (0.0-7.0) % Baso % (Auto) (0.0-2.0) % Gran # (1.80-8.00) K/mcL Lymph # (Auto) (1.50-4.80) K/mcL [place] # (Auto) (0.10-0.90) K/mcL Eos # (Auto) (0.00-0.70) K/mcL Baso # (Auto) (0.00-0.30) K/mcL VBG Lactic Acid 2.1 H (0.5-2.0) mmol/L Sodium (133-145) mmol/L Potassium (3.3-5.1) mmol/L Chloride (96-108) mmol/L Carbon Dioxide (22-30) mmol/L Anion Gap (8-16) BUN (8-23) mg/dl Creatinine (0.7-1.2) mg/dl GFR Calculation Glucose (70-105) mg/dL Calcium (8.6-10.4) mg/dl Total Bilirubin (0.0-1.0) mg/dL AST (0-37) U/l ALT (0-40) U/l Alkaline Phosphatase (39-117) U/L Total Protein (5.9-8.4) gm/dL Albumin (3.2-5.2) gm/dL Globulin (2.2-3.7) gm/dL Albumin/Globulin Ratio (1.0-2.3) Urine Color Urine Appearance Urine pH (5.0-9.0) Ur Specific [place] (1.000-1.035) Urine Protein (NEG) mg/dL Urine Glucose (UA) (NEG) mg/dL Urine Ketones (NEG) mg/dL Urine Occult Blood (<0.03) mg/dL Urine Nitrate (NEG) Urine Bilirubin (NEG) mg/dL Urine Urobilinogen (NEG) mg/dL Ur Leukocyte Esterase (NEG) /uL Urine RBC (0-1) /hpf Urine WBC (0-4) /hpf Ur Squamous Epith Cells (0-4) /hpf Ur Transition Epith Cell (0-2) /hpf Urine Bacteria (0) /hpf Urine Mucus (0) /hpf Ur Culture Indicated? Disposition Pt seen by TIMBER APPRAISER/PA only: No Clinical Impression: Dementia Qualifiers: Dementia type: unspecified type Dementia behavioral disturbance: with behavioral disturbance Qualified Code(s): F03.91 - Unspecified dementia with behavioral disturbance Knee osteoarthritis Qualifiers: Osteoarthritis type: unspecified Laterality: bilateral Qualified Code(s): M17.0 - Bilateral primary osteoarthritis of knee Disposition: Still a Patient Condition: Fair Referrals: Denny Land DO [Primary Care Provider] - Time of Disposition: 08:37
[2019-08-27] MEDS ORDERED: ZOLPIDEM 5 MG TABLET PO ONE (21:49)
--- NOTE | 2019-08-28 17:57 | Emergency Department Note ---
General Adult HPI - General Chief complaint: Altered Mental Status Stated complaint: altered mental status Time Seen by Provider: 08/26/19 14:43 Source: patient, EMS Mode of arrival: ambulatory Limitations: altered mental status - History of Present Illness HPI Narrative: I reevaluated this 79-year-old demented patient again today. He is doing well walking eating talking etc. without difficulty. He remains in our ER as we look for placement secondary to his cognitive issues. He remains a danger to himself and others. There is a sitter. Brief review of systems is negative-no trouble eating walking pain shortness of breath or new complaint - Related Data Home Medications Medication Instructions Recorded Confirmed aspirin 325 mg tablet 325 mg PO QDAY 07/21/19 07/21/19 divalproex 250 mg tablet,delayed 250 mg PO BID 07/21/19 07/21/19 release ibuprofen 200 mg tablet 200 mg PO QID PRN 07/21/19 07/21/19 levothyroxine 137 mcg capsule 137 mcg PO QDAY 07/21/19 07/21/19 melatonin 10 mg capsule 10 mg PO HS PRN 07/21/19 07/21/19 tamsulosin 0.4 mg capsule 0.4 mg PO QDAY 07/21/19 07/21/19 Allergies Allergy/AdvReac Type Severity Reaction Status Date / Time bee venom protein (honey bee) Allergy Severe Swelling Verified 07/21/19 12:05 amitriptyline [AMITRIPTYLINE] AdvReac Mild RASH, Verified 07/21/19 12:05 ITCHING clindamycin AdvReac Mild Rash Verified 07/21/19 12:05 Diclofenac [From Voltaren] AdvReac Mild Rash Verified 07/21/19 12:05 Zolpidem [From Ambien] AdvReac Unknown Unknown Verified 07/21/19 12:05 Past Medical History - Past Medical History [facility] Narrative: Medical History (Last Reviewed 07/22/19 @ 08:37 by Aruna Wild DO) Hypertension, essential (Chronic) COPD (chronic obstructive pulmonary disease) (Chronic) Hypothyroidism, acquired (Chronic) Valvular heart disease (Chronic) Macular degeneration (Chronic) Degenerative joint disease, shoulder, right (Chronic) BPH (benign prostatic hyperplasia) (Chronic) Fibromyalgia (Chronic) Chronic fatigue syndrome (Chronic) Hearing loss (Chronic) Pneumonia (Resolved) Past Surgical History (Last Updated 10/11/18 @ 16:45 by Robert Ghosh DO) H/O pyloroplasty (Acute) H/O vagotomy (Acute) History of repair of hiatal hernia (Acute) S/P cataract surgery (Acute) S/P tonsillectomy (Acute) Source: old records reviewed Medical history: Reports: hyperlipidemia, valvular heart disease, other (Ischemic colitis). Denies: CHF, CVA, DM, hypertension, myocardial infarction, renal disease, TIA Psychiatric history: Denies: anxiety, depression Surgical history ED: Reports: colostomy - Social History smoking status: Former smoker Alcohol use: Reports: Rarely (May be up to a few times a month and occasional beer) Drug use: Reports: none. Denies: marijuana Physical Exam Thin male no acute distress. Normocephalic atraumatic. Conjunctive are clear sclerae white nonicteric. No nasal discharge or congestion. Heart is regular rate and rhythm no murmur appreciated. Lungs clear to auscultation bilaterally without wheezes rales rhonchi or respiratory distress. His ostomy bag continues to function well but I did not examine it today. No pedal edema. Alert but not oriented-he remains with significant dementia and has severely impaired short- term memory as well as long-term memory. He was not able to tell me when he was in the many years ago Limitations: altered mental status Course Vital Signs Pulse Rate 65 08/26/19 14:40 Respiratory Rate 18 08/26/19 14:40 Blood Pressure 152/70 08/26/19 14:40 Pulse Oximetry (%) 100 08/26/19 14:40 Pulse Rate 84 08/28/19 09:13 Respiratory Rate 16 08/28/19 09:13 Blood Pressure 136/83 08/28/19 09:13 Pulse Oximetry (%) 97 08/28/19 09:13 Medical Decision Making - Lab Data Lab results reviewed: Yes I reviewed the patient's lab results. Result diagrams: 08/26/19 15:14 08/26/19 15:14 Lab Results 08/26/19 08/26/19 08/26/19 Range/Units 14:42 15:14 15:14 WBC 10.4 (4.50-11.00) K/mcL RBC 4.13 L (4.63-6.08) M/mcL Hgb 12.6 L (13.7-17.5) g/dL Hct 37.0 L (40.1-51.0) % MCV 89.6 (80.0-100.0) fL MCH 30.5 (26.0-34.0) pg MCHC 34.1 (31.0-36.0) g/dL RDW 14.6 H (11.5-14.5) % Plt Count 286 (140-440) K/mcL MPV 9.7 (7.4-10.4) fL Gran % 72.7 (38.0-78.0) % Lymph % (Auto) 17.9 (15.5-49.0) % [place] % (Auto) 8.4 (1.0-12.0) % Eos % (Auto) 0.4 (0.0-7.0) % Baso % (Auto) 0.6 (0.0-2.0) % Gran # 7.54 (1.80-8.00) K/mcL Lymph # (Auto) 1.86 (1.50-4.80) K/mcL [place] # (Auto) 0.87 (0.10-0.90) K/mcL Eos # (Auto) 0.04 (0.00-0.70) K/mcL Baso # (Auto) 0.06 (0.00-0.30) K/mcL VBG Lactic Acid (0.5-2.0) mmol/L Sodium 137 (133-145) mmol/L Potassium 3.7 (3.3-5.1) mmol/L Chloride 102 (96-108) mmol/L Carbon Dioxide 19 L (22-30) mmol/L Anion Gap 16.0 (8-16) BUN 19 (8-23) mg/dl Creatinine 1.0 (0.7-1.2) mg/dl GFR Calculation 71 Glucose 104 (70-105) mg/dL Calcium 9.6 (8.6-10.4) mg/dl Total Bilirubin 0.5 (0.0-1.0) mg/dL AST 18 (0-37) U/l ALT 11 (0-40) U/l Alkaline Phosphatase 102 (39-117) U/L Total Protein 6.9 (5.9-8.4) gm/dL Albumin 4.1 (3.2-5.2) gm/dL Globulin 2.8 (2.2-3.7) gm/dL Albumin/Globulin Ratio 1.5 (1.0-2.3) Urine Color Yellow Urine Appearance Clear Urine pH 7.0 (5.0-9.0) Ur Specific [place] 1.009 (1.000-1.035) Urine Protein Neg (NEG) mg/dL Urine Glucose (UA) Negative (NEG) mg/dL Urine Ketones Neg (NEG) mg/dL Urine Occult Blood Neg (<0.03) mg/dL Urine Nitrate Neg (NEG) Urine Bilirubin Neg (NEG) mg/dL Urine Urobilinogen Neg (NEG) mg/dL Ur Leukocyte Esterase Neg (NEG) /uL Urine RBC 1 (0-1) /hpf Urine WBC 2 (0-4) /hpf Ur Squamous Epith Cells 0 (0-4) /hpf Ur Transition Epith Cell < 1 (0-2) /hpf Urine Bacteria 0 (0) /hpf Urine Mucus Few (0) /hpf Ur Culture Indicated? No 08/26/19 Range/Units 15:14 WBC (4.50-11.00) K/mcL RBC (4.63-6.08) M/mcL Hgb (13.7-17.5) g/dL Hct (40.1-51.0) % MCV (80.0-100.0) fL MCH (26.0-34.0) pg MCHC (31.0-36.0) g/dL RDW (11.5-14.5) % Plt Count (140-440) K/mcL MPV (7.4-10.4) fL Gran % (38.0-78.0) % Lymph % (Auto) (15.5-49.0) % [place] % (Auto) (1.0-12.0) % Eos % (Auto) (0.0-7.0) % Baso % (Auto) (0.0-2.0) % Gran # (1.80-8.00) K/mcL Lymph # (Auto) (1.50-4.80) K/mcL [place] # (Auto) (0.10-0.90) K/mcL Eos # (Auto) (0.00-0.70) K/mcL Baso # (Auto) (0.00-0.30) K/mcL VBG Lactic Acid 2.1 H (0.5-2.0) mmol/L Sodium (133-145) mmol/L Potassium (3.3-5.1) mmol/L Chloride (96-108) mmol/L Carbon Dioxide (22-30) mmol/L Anion Gap (8-16) BUN (8-23) mg/dl Creatinine (0.7-1.2) mg/dl GFR Calculation Glucose (70-105) mg/dL Calcium (8.6-10.4) mg/dl Total Bilirubin (0.0-1.0) mg/dL AST (0-37) U/l ALT (0-40) U/l Alkaline Phosphatase (39-117) U/L Total Protein (5.9-8.4) gm/dL Albumin (3.2-5.2) gm/dL Globulin (2.2-3.7) gm/dL Albumin/Globulin Ratio (1.0-2.3) Urine Color Urine Appearance Urine pH (5.0-9.0) Ur Specific [place] (1.000-1.035) Urine Protein (NEG) mg/dL Urine Glucose (UA) (NEG) mg/dL Urine Ketones (NEG) mg/dL Urine Occult Blood (<0.03) mg/dL Urine Nitrate (NEG) Urine Bilirubin (NEG) mg/dL Urine Urobilinogen (NEG) mg/dL Ur Leukocyte Esterase (NEG) /uL Urine RBC (0-1) /hpf Urine WBC (0-4) /hpf Ur Squamous Epith Cells (0-4) /hpf Ur Transition Epith Cell (0-2) /hpf Urine Bacteria (0) /hpf Urine Mucus (0) /hpf Ur Culture Indicated? Disposition Pt seen by SHOP TECHNICIAN/PA only: No Clinical Impression: Dementia Qualifiers: Dementia type: unspecified type Dementia behavioral disturbance: with behavioral disturbance Qualified Code(s): F03.91 - Unspecified dementia with behavioral disturbance Knee osteoarthritis Qualifiers: Osteoarthritis type: unspecified Laterality: bilateral Qualified Code(s): M17.0 - Bilateral primary osteoarthritis of knee Summary: Social work and administrative staff continue to work on placement for this individual. [place] Medicaid was here as well to evaluate the patient. He remains with a sitter. He did have to receive some Ativan last night to help him sleep and we may give him that again. Placement is pending as late as 3 days from now Disposition: Still a Patient Condition: Fair Referrals: Denny Land DO [Primary Care Provider] -
[2019-08-28] MEDS ORDERED: ACETAMINOPHEN 325 MG TABLET PO ONE (19:49)
[2019-08-29] MEDS ORDERED: ACETAMINOPHEN 325 MG TABLET PO ONE ×2 (10:25→17:55)
--- NOTE | 2019-08-29 11:32 | Emergency Department Note ---
Altered Mental Status HPI - General Chief Complaint: Altered Mental Status Stated Complaint: altered mental status Time Seen by Provider: 08/26/19 14:43 Source: patient, EMS Mode of arrival: ambulatory Limitations: altered mental status - History of Present Illness HPI Narrative: See previous notes. Patient has remained stable overnight and this morning with no complaints except he reports an occasional to intermittent low-grade headache. Later asked for Tylenol which was prescribed. He is not agitated, is interactive and pleasant. Seems to be satisfied with reading and watching TV or videos. Awaiting placement. - Related Data Home Medications Medication Instructions Recorded Confirmed aspirin 325 mg tablet 325 mg PO QDAY 07/21/19 09/02/19 ibuprofen 200 mg tablet 200 mg PO QID PRN 07/21/19 09/02/19 levothyroxine 137 mcg capsule 137 mcg PO QDAY 07/21/19 09/02/19 melatonin 10 mg capsule 10 mg PO HS PRN 07/21/19 09/02/19 tamsulosin 0.4 mg capsule 0.4 mg PO QDAY 07/21/19 09/02/19 OLANZapine [Zyprexa] 2.5 - 5 mg PO Q2HP PRN 09/02/19 09/02/19 Allergies Allergy/AdvReac Type Severity Reaction Status Date / Time bee venom protein (honey bee) Allergy Severe Swelling Verified 07/21/19 12:05 Zolpidem [From Ambien] AdvReac Severe Anxiety Verified 08/30/19 23:27 amitriptyline [AMITRIPTYLINE] AdvReac Mild RASH, Verified 07/21/19 12:05 ITCHING clindamycin AdvReac Mild Rash Verified 09/04/19 08:02 Diclofenac [From Voltaren] AdvReac Mild Rash Verified 07/21/19 12:05 Past Medical History - Past Medical History Medical history: Reports: hyperlipidemia, valvular heart disease, other (Ischemic colitis). Denies: CHF, CVA, DM, hypertension, myocardial infarction, renal disease, TIA Psychiatric history: Denies: anxiety, depression Surgical history ED: Reports: colostomy - Social History smoking status: Former smoker Alcohol use: Reports: Rarely (May be up to a few times a month and occasional beer) Drug use: Reports: none. Denies: marijuana Physical Exam Limitations: altered mental status Course Vital Signs Pulse Rate 65 08/26/19 14:40 Respiratory Rate 18 08/26/19 14:40 Blood Pressure 152/70 08/26/19 14:40 Pulse Oximetry (%) 100 08/26/19 14:40 Temperature 98.2 F 09/07/19 19:24 Pulse Rate 65 09/07/19 19:24 Respiratory Rate 16 09/07/19 19:24 Blood Pressure 116/76 09/07/19 19:24 Pulse Oximetry (%) 98 09/07/19 19:24 Altered Mental Status - MDM Narrative Medical decision making narrative: 5:12 PM - patient has become somewhat more aggressive/agitated or insistent and request to call the nursing home to check on his son. Zyprexa 2.5 mg p.o. ordered. - Lab Data Result diagrams: 09/06/19 09:39 09/06/19 09:39 Lab Results 08/26/19 08/26/19 08/26/19 Range/Units 14:42 15:14 15:14 WBC 10.4 (4.50-11.00) K/mcL RBC 4.13 L (4.63-6.08) M/mcL Hgb 12.6 L (13.7-17.5) g/dL Hct 37.0 L (40.1-51.0) % MCV 89.6 (80.0-100.0) fL MCH 30.5 (26.0-34.0) pg MCHC 34.1 (31.0-36.0) g/dL RDW 14.6 H (11.5-14.5) % Plt Count 286 (140-440) K/mcL MPV 9.7 (7.4-10.4) fL Gran % 72.7 (38.0-78.0) % Lymph % (Auto) 17.9 (15.5-49.0) % [place] % (Auto) 8.4 (1.0-12.0) % Eos % (Auto) 0.4 (0.0-7.0) % Baso % (Auto) 0.6 (0.0-2.0) % Gran # 7.54 (1.80-8.00) K/mcL Lymph # (Auto) 1.86 (1.50-4.80) K/mcL [place] # (Auto) 0.87 (0.10-0.90) K/mcL Eos # (Auto) 0.04 (0.00-0.70) K/mcL Baso # (Auto) 0.06 (0.00-0.30) K/mcL VBG Lactic Acid (0.5-2.0) mmol/L Sodium 137 (133-145) mmol/L Potassium 3.7 (3.3-5.1) mmol/L Chloride 102 (96-108) mmol/L Carbon Dioxide 19 L (22-30) mmol/L Anion Gap 16.0 (8-16) BUN 19 (8-23) mg/dl Creatinine 1.0 (0.7-1.2) mg/dl GFR Calculation 71 Glucose 104 (70-105) mg/dL Calcium 9.6 (8.6-10.4) mg/dl Total Bilirubin 0.5 (0.0-1.0) mg/dL AST 18 (0-37) U/l ALT 11 (0-40) U/l Alkaline Phosphatase 102 (39-117) U/L Total Protein 6.9 (5.9-8.4) gm/dL Albumin 4.1 (3.2-5.2) gm/dL Globulin 2.8 (2.2-3.7) gm/dL Albumin/Globulin Ratio 1.5 (1.0-2.3) Urine Color Yellow Urine Appearance Clear Urine pH 7.0 (5.0-9.0) Ur Specific [place] 1.009 (1.000-1.035) Urine Protein Neg (NEG) mg/dL Urine Glucose (UA) Negative (NEG) mg/dL Urine Ketones Neg (NEG) mg/dL Urine Occult Blood Neg (<0.03) mg/dL Urine Nitrate Neg (NEG) Urine Bilirubin Neg (NEG) mg/dL Urine Urobilinogen Neg (NEG) mg/dL Ur Leukocyte Esterase Neg (NEG) /uL Urine RBC 1 (0-1) /hpf Urine WBC 2 (0-4) /hpf Ur Squamous Epith Cells 0 (0-4) /hpf Ur Transition Epith Cell < 1 (0-2) /hpf Urine Bacteria 0 (0) /hpf Urine Mucus Few (0) /hpf Ur Culture Indicated? No 08/26/19 09/02/19 09/02/19 Range/Units 15:14 17:56 17:56 WBC 10.4 (4.50-11.00) K/mcL RBC 4.13 L (4.63-6.08) M/mcL Hgb 12.6 L (13.7-17.5) g/dL Hct 38.4 L (40.1-51.0) % MCV 93.0 (80.0-100.0) fL MCH 30.5 (26.0-34.0) pg MCHC 32.8 (31.0-36.0) g/dL RDW 14.7 H (11.5-14.5) % Plt Count 315 (140-440) K/mcL MPV 9.9 (7.4-10.4) fL Gran % 63.4 (38.0-78.0) % Lymph % (Auto) 23.2 (15.5-49.0) % [place] % (Auto) 11.8 (1.0-12.0) % Eos % (Auto) 0.8 (0.0-7.0) % Baso % (Auto) 0.8 (0.0-2.0) % Gran # 6.57 (1.80-8.00) K/mcL Lymph # (Auto) 2.40 (1.50-4.80) K/mcL [place] # (Auto) 1.22 H (0.10-0.90) K/mcL Eos # (Auto) 0.08 (0.00-0.70) K/mcL Baso # (Auto) 0.08 (0.00-0.30) K/mcL VBG Lactic Acid 2.1 H (0.5-2.0) mmol/L Sodium 136 (133-145) mmol/L Potassium 4.3 (3.3-5.1) mmol/L Chloride 100 (96-108) mmol/L Carbon Dioxide 21 L (22-30) mmol/L Anion Gap 15.0 (8-16) BUN 22 (8-23) mg/dl Creatinine 1.1 (0.7-1.2) mg/dl GFR Calculation 64 Glucose 92 (70-105) mg/dL Calcium 8.9 (8.6-10.4) mg/dl Total Bilirubin 0.2 (0.0-1.0) mg/dL AST 21 (0-37) U/l ALT 12 (0-40) U/l Alkaline Phosphatase 129 H (39-117) U/L Total Protein 7.0 (5.9-8.4) gm/dL Albumin 4.0 (3.2-5.2) gm/dL Globulin 3.0 (2.2-3.7) gm/dL Albumin/Globulin Ratio 1.3 (1.0-2.3) Urine Color Urine Appearance Urine pH (5.0-9.0) Ur Specific [place] (1.000-1.035) Urine Protein (NEG) mg/dL Urine Glucose (UA) (NEG) mg/dL Urine Ketones (NEG) mg/dL Urine Occult Blood (<0.03) mg/dL Urine Nitrate (NEG) Urine Bilirubin (NEG) mg/dL Urine Urobilinogen (NEG) mg/dL Ur Leukocyte Esterase (NEG) /uL Urine RBC (0-1) /hpf Urine WBC (0-4) /hpf Ur Squamous Epith Cells (0-4) /hpf Ur Transition Epith Cell (0-2) /hpf Urine Bacteria (0) /hpf Urine Mucus (0) /hpf Ur Culture Indicated? Disposition Pt seen by CLIENT SERVICE CONSULTANT/PA only: No Clinical Impression: Dementia Qualifiers: Dementia type: unspecified type Dementia behavioral disturbance: with behavioral disturbance Qualified Code(s): F03.91 - Unspecified dementia with behavioral disturbance Knee osteoarthritis Qualifiers: Osteoarthritis type: unspecified Laterality: bilateral Qualified Code(s): M17.0 - Bilateral primary osteoarthritis of knee Altered mental status Qualifiers: Altered mental status type: unspecified Qualified Code(s): R41.82 - Altered mental status, unspecified Disposition: Still a Patient Condition: Fair
[2019-08-29] MEDS ORDERED: ASPIRIN 81 MG TAB.CHEW CHEWED ONE (12:51)
[2019-08-29] MEDS ORDERED: OLANZapine 2.5 MG TABLET PO ONE (17:12)
[2019-08-30] MEDS ORDERED: LORazepam 1 MG TABLET PO ONE ×2 (01:32→11:36)
[2019-08-30] MEDS ORDERED: ACETAMINOPHEN 325 MG TABLET PO ONE (02:34)
[2019-08-30] MEDS ORDERED: IBUPROFEN 200 MG TABLET PO ONE (09:40)
[2019-08-30] MEDS: OLANZapine 2.5 MG TABLET PO SCH (21:21)
[2019-08-30] MEDS: LORazepam 1 MG TABLET PO SCH (21:21)
[2019-08-30] MEDS: ZOLPIDEM 5 MG TABLET PO SCH (21:21)
[2019-08-30] MEDS: QUEtiapine 100 MG TABLET PO SCH (21:21)
[2019-08-30] MEDS ORDERED: OLANZapine 10 MG VIAL IM SCH (22:45)
[2019-08-31] MEDS ORDERED: HALOPERIDOL LACTATE 5 MG/ML VIAL IM ONE (01:26)
--- NOTE | 2019-08-31 08:24 | Emergency Department Note ---
Altered Mental Status HPI - General Chief Complaint: Altered Mental Status Stated Complaint: altered mental status Time Seen by Provider: 08/26/19 14:43 Source: patient, EMS Mode of arrival: ambulatory Limitations: altered mental status - History of Present Illness HPI Narrative: For most of my shift this patient remained quite calm and stable but during the night he had great difficulty sleeping was somewhat agitated and required quite a bit of medication. I finally gave him 10 mg of Haldol IM and he seemed to sleep and be less of a problem the rest of the night. This is on top of [place]. - Related Data Home Medications Medication Instructions Recorded Confirmed aspirin 325 mg tablet 325 mg PO QDAY 07/21/19 07/21/19 divalproex 250 mg tablet,delayed 250 mg PO BID 07/21/19 07/21/19 release ibuprofen 200 mg tablet 200 mg PO QID PRN 07/21/19 07/21/19 levothyroxine 137 mcg capsule 137 mcg PO QDAY 07/21/19 07/21/19 melatonin 10 mg capsule 10 mg PO HS PRN 07/21/19 07/21/19 tamsulosin 0.4 mg capsule 0.4 mg PO QDAY 07/21/19 07/21/19 Allergies Allergy/AdvReac Type Severity Reaction Status Date / Time bee venom protein (honey bee) Allergy Severe Swelling Verified 07/21/19 12:05 Zolpidem [From Ambien] AdvReac Severe Anxiety Verified 08/30/19 23:27 amitriptyline [AMITRIPTYLINE] AdvReac Mild RASH, Verified 07/21/19 12:05 ITCHING Diclofenac [From Voltaren] AdvReac Mild Rash Verified 07/21/19 12:05 clindamycin AdvReac Rash Verified 08/30/19 23:27 Past Medical History - Past Medical History Medical history: Reports: hyperlipidemia, valvular heart disease, other (Ischemic colitis). Denies: CHF, CVA, DM, hypertension, myocardial infarction, renal disease, TIA Psychiatric history: Denies: anxiety, depression Surgical history ED: Reports: colostomy - Social History smoking status: Former smoker Alcohol use: Reports: Rarely (May be up to a few times a month and occasional beer) Drug use: Reports: none. Denies: marijuana Physical Exam Limitations: altered mental status Course Vital Signs Pulse Rate 65 08/26/19 14:40 Respiratory Rate 18 08/26/19 14:40 Blood Pressure 152/70 08/26/19 14:40 Pulse Oximetry (%) 100 08/26/19 14:40 Temperature 98.3 F 08/29/19 10:40 Pulse Rate 74 08/29/19 19:00 Respiratory Rate 16 08/29/19 10:40 Blood Pressure 122/69 08/29/19 19:00 Pulse Oximetry (%) 98 08/29/19 19:00 Altered Mental Status - Lab Data Result diagrams: 08/26/19 15:14 08/26/19 15:14 Lab Results 08/26/19 08/26/19 08/26/19 Range/Units 14:42 15:14 15:14 WBC 10.4 (4.50-11.00) K/mcL RBC 4.13 L (4.63-6.08) M/mcL Hgb 12.6 L (13.7-17.5) g/dL Hct 37.0 L (40.1-51.0) % MCV 89.6 (80.0-100.0) fL MCH 30.5 (26.0-34.0) pg MCHC 34.1 (31.0-36.0) g/dL RDW 14.6 H (11.5-14.5) % Plt Count 286 (140-440) K/mcL MPV 9.7 (7.4-10.4) fL Gran % 72.7 (38.0-78.0) % Lymph % (Auto) 17.9 (15.5-49.0) % [place] % (Auto) 8.4 (1.0-12.0) % Eos % (Auto) 0.4 (0.0-7.0) % Baso % (Auto) 0.6 (0.0-2.0) % Gran # 7.54 (1.80-8.00) K/mcL Lymph # (Auto) 1.86 (1.50-4.80) K/mcL [place] # (Auto) 0.87 (0.10-0.90) K/mcL Eos # (Auto) 0.04 (0.00-0.70) K/mcL Baso # (Auto) 0.06 (0.00-0.30) K/mcL VBG Lactic Acid (0.5-2.0) mmol/L Sodium 137 (133-145) mmol/L Potassium 3.7 (3.3-5.1) mmol/L Chloride 102 (96-108) mmol/L Carbon Dioxide 19 L (22-30) mmol/L Anion Gap 16.0 (8-16) BUN 19 (8-23) mg/dl Creatinine 1.0 (0.7-1.2) mg/dl GFR Calculation 71 Glucose 104 (70-105) mg/dL Calcium 9.6 (8.6-10.4) mg/dl Total Bilirubin 0.5 (0.0-1.0) mg/dL AST 18 (0-37) U/l ALT 11 (0-40) U/l Alkaline Phosphatase 102 (39-117) U/L Total Protein 6.9 (5.9-8.4) gm/dL Albumin 4.1 (3.2-5.2) gm/dL Globulin 2.8 (2.2-3.7) gm/dL Albumin/Globulin Ratio 1.5 (1.0-2.3) Urine Color Yellow Urine Appearance Clear Urine pH 7.0 (5.0-9.0) Ur Specific [place] 1.009 (1.000-1.035) Urine Protein Neg (NEG) mg/dL Urine Glucose (UA) Negative (NEG) mg/dL Urine Ketones Neg (NEG) mg/dL Urine Occult Blood Neg (<0.03) mg/dL Urine Nitrate Neg (NEG) Urine Bilirubin Neg (NEG) mg/dL Urine Urobilinogen Neg (NEG) mg/dL Ur Leukocyte Esterase Neg (NEG) /uL Urine RBC 1 (0-1) /hpf Urine WBC 2 (0-4) /hpf Ur Squamous Epith Cells 0 (0-4) /hpf Ur Transition Epith Cell < 1 (0-2) /hpf Urine Bacteria 0 (0) /hpf Urine Mucus Few (0) /hpf Ur Culture Indicated? No 08/26/19 Range/Units 15:14 WBC (4.50-11.00) K/mcL RBC (4.63-6.08) M/mcL Hgb (13.7-17.5) g/dL Hct (40.1-51.0) % MCV (80.0-100.0) fL MCH (26.0-34.0) pg MCHC (31.0-36.0) g/dL RDW (11.5-14.5) % Plt Count (140-440) K/mcL MPV (7.4-10.4) fL Gran % (38.0-78.0) % Lymph % (Auto) (15.5-49.0) % [place] % (Auto) (1.0-12.0) % Eos % (Auto) (0.0-7.0) % Baso % (Auto) (0.0-2.0) % Gran # (1.80-8.00) K/mcL Lymph # (Auto) (1.50-4.80) K/mcL [place] # (Auto) (0.10-0.90) K/mcL Eos # (Auto) (0.00-0.70) K/mcL Baso # (Auto) (0.00-0.30) K/mcL VBG Lactic Acid 2.1 H (0.5-2.0) mmol/L Sodium (133-145) mmol/L Potassium (3.3-5.1) mmol/L Chloride (96-108) mmol/L Carbon Dioxide (22-30) mmol/L Anion Gap (8-16) BUN (8-23) mg/dl Creatinine (0.7-1.2) mg/dl GFR Calculation Glucose (70-105) mg/dL Calcium (8.6-10.4) mg/dl Total Bilirubin (0.0-1.0) mg/dL AST (0-37) U/l ALT (0-40) U/l Alkaline Phosphatase (39-117) U/L Total Protein (5.9-8.4) gm/dL Albumin (3.2-5.2) gm/dL Globulin (2.2-3.7) gm/dL Albumin/Globulin Ratio (1.0-2.3) Urine Color Urine Appearance Urine pH (5.0-9.0) Ur Specific [place] (1.000-1.035) Urine Protein (NEG) mg/dL Urine Glucose (UA) (NEG) mg/dL Urine Ketones (NEG) mg/dL Urine Occult Blood (<0.03) mg/dL Urine Nitrate (NEG) Urine Bilirubin (NEG) mg/dL Urine Urobilinogen (NEG) mg/dL Ur Leukocyte Esterase (NEG) /uL Urine RBC (0-1) /hpf Urine WBC (0-4) /hpf Ur Squamous Epith Cells (0-4) /hpf Ur Transition Epith Cell (0-2) /hpf Urine Bacteria (0) /hpf Urine Mucus (0) /hpf Ur Culture Indicated? Disposition Pt seen by ORNAMENTAL BRICK INSTALLER/PA only: No Clinical Impression: Altered mental status Dementia Qualifiers: Dementia type: unspecified type Dementia behavioral disturbance: with behavioral disturbance Qualified Code(s): F03.91 - Unspecified dementia with behavioral disturbance Knee osteoarthritis Qualifiers: Osteoarthritis type: unspecified Laterality: bilateral Qualified Code(s): M17.0 - Bilateral primary osteoarthritis of knee Disposition: Still a Patient Condition: Fair Referrals: Denny Land DO [Primary Care Provider] - Time of Disposition: 08:24
[2019-08-31] MEDS ORDERED: ASPIRIN 325 MG ENTERIC COATED TABLET PO ONE (14:55)
[2019-08-31] MEDS ORDERED: ASPIRIN 81 MG TAB.CHEW CHEWED ONE (14:58)
[2019-08-31] MEDS ORDERED: HALOPERIDOL 5 MG TABLET PO ONE (21:17)
[2019-08-31] MEDS: QUEtiapine 100 MG TABLET PO SCH (21:36)
[2019-08-31] MEDS: OLANZapine 2.5 MG TABLET PO SCH (21:36)
[2019-09-01] MEDS: LORazepam 1 MG TABLET PO SCH (09:49)
[2019-09-01] MEDS ORDERED: MELATONIN 3 MG TABLET PO PRN ×2 (10:15→13:30)
[2019-09-01] MEDS: LEVOTHYROXINE 25 MCG TABLET PO SCH (11:58)
[2019-09-01] MEDS: LEVOTHYROXINE SODIUM 112 MCG TABLET PO SCH (11:59)
[2019-09-01] MEDS: IBUPROFEN 200 MG TABLET PO PRN ×2 (11:59→20:10)
[2019-09-01] MEDS: DIVALPROEX 125 MG CAP.SPRINK PO SCH ×2 (11:59→20:05)
[2019-09-01] MEDS ORDERED: OLANZapine 5 MG TABLET PO ONE (13:24)
[2019-09-01] MEDS ORDERED: TAMSULOSIN 0.4 MG CAPSULE PO SCH (21:00)
[2019-09-01] MEDS ORDERED: OLANZapine 5 MG TABLET PO SCH (21:00)
[2019-09-02] MEDS: IBUPROFEN 200 MG TABLET PO PRN ×3 (01:26→22:55)
--- NOTE | 2019-09-02 07:54 | Emergency Department Note ---
Altered Mental Status HPI - General Chief Complaint: Altered Mental Status Stated Complaint: altered mental status Time Seen by Provider: 08/26/19 14:43 Source: patient, EMS Mode of arrival: ambulatory Limitations: altered mental status - History of Present Illness HPI Narrative: I extensively reviewed this patient's medical record from his 25-day admission at [facility] and the medications that he has been on. Have also done some extensive review reference literature on the way to treat agitation and dementia. - Related Data Home Medications Medication Instructions Recorded Confirmed aspirin 325 mg tablet 325 mg PO QDAY 07/21/19 07/21/19 divalproex 250 mg tablet,delayed 250 mg PO BID 07/21/19 07/21/19 release ibuprofen 200 mg tablet 200 mg PO QID PRN 07/21/19 07/21/19 levothyroxine 137 mcg capsule 137 mcg PO QDAY 07/21/19 07/21/19 melatonin 10 mg capsule 10 mg PO HS PRN 07/21/19 07/21/19 tamsulosin 0.4 mg capsule 0.4 mg PO QDAY 07/21/19 07/21/19 Allergies Allergy/AdvReac Type Severity Reaction Status Date / Time bee venom protein (honey bee) Allergy Severe Swelling Verified 07/21/19 12:05 Zolpidem [From Ambien] AdvReac Severe Anxiety Verified 08/30/19 23:27 amitriptyline [AMITRIPTYLINE] AdvReac Mild RASH, Verified 07/21/19 12:05 ITCHING Diclofenac [From Voltaren] AdvReac Mild Rash Verified 07/21/19 12:05 clindamycin AdvReac Rash Verified 08/30/19 23:27 Past Medical History - Past Medical History Medical history: Reports: hyperlipidemia, valvular heart disease, other (Ischemic colitis). Denies: CHF, CVA, DM, hypertension, myocardial infarction, renal disease, TIA Psychiatric history: Denies: anxiety, depression Surgical history ED: Reports: colostomy - Social History smoking status: Former smoker Alcohol use: Reports: Rarely (May be up to a few times a month and occasional beer) Drug use: Reports: none. Denies: marijuana Physical Exam This patient has remained calm and comfortable throughout this shift often sitting in his room reading and occasionally walking out of the emergency room but not nearly as much as previously. Limitations: altered mental status Course Vital Signs Pulse Rate 65 08/26/19 14:40 Respiratory Rate 18 08/26/19 14:40 Blood Pressure 152/70 08/26/19 14:40 Pulse Oximetry (%) 100 08/26/19 14:40 Temperature 97.5 F 09/01/19 12:09 Pulse Rate 73 09/01/19 18:50 Respiratory Rate 16 09/01/19 18:50 Blood Pressure 129/60 09/01/19 18:50 Pulse Oximetry (%) 98 09/01/19 18:50 Altered Mental Status - MDM Narrative Medical decision making narrative: I decided to limit this patient's medication for agitation to Zyprexa 5 mg twice a day. This is the higher recommended dose but he has been on 2.5 mg and not done well. Over the last 24 hours he did not require Ativan. We have stopped Benadryl Seroquel and Ambien. He continues to get his melatonin 10 mg at bedtime and Zyprexa 5 mg twice a day orally. It is our hope that this will be an adequate regimen to control his symptoms. I did place a call to the psychiatry line and have not heard back from them yet. I was able to speak with Dr. Barnes a psychiatrist at [facility]. She agreed with the approach that we are beginning to take is using only Zyprexa. She recommended stopping Depakote. Recommended against any benzodiazepines and also against Seroquel risperidone and Benadryl. These anticholinergics can have an adverse effect with the patient. Her recommendation is to use Zyprexa as baseline and as needed up to a maximum dose of 20 mg a day. Patient actually does seem to be improved from yesterday. We will continue Zyprexa 5 mg twice a day as a baseline and used 2.5 to 5 mg as needed as needed up to a maximum of 20 mg. - Lab Data Result diagrams: 08/26/19 15:14 08/26/19 15:14 Lab Results 08/26/19 08/26/19 08/26/19 Range/Units 14:42 15:14 15:14 WBC 10.4 (4.50-11.00) K/mcL RBC 4.13 L (4.63-6.08) M/mcL Hgb 12.6 L (13.7-17.5) g/dL Hct 37.0 L (40.1-51.0) % MCV 89.6 (80.0-100.0) fL MCH 30.5 (26.0-34.0) pg MCHC 34.1 (31.0-36.0) g/dL RDW 14.6 H (11.5-14.5) % Plt Count 286 (140-440) K/mcL MPV 9.7 (7.4-10.4) fL Gran % 72.7 (38.0-78.0) % Lymph % (Auto) 17.9 (15.5-49.0) % [place]ison % (Auto) 8.4 (1.0-12.0) % Eos % (Auto) 0.4 (0.0-7.0) % Baso % (Auto) 0.6 (0.0-2.0) % Gran # 7.54 (1.80-8.00) K/mcL Lymph # (Auto) 1.86 (1.50-4.80) K/mcL Addison # (Auto) 0.87 (0.10-0.90) K/mcL Eos # (Auto) 0.04 (0.00-0.70) K/mcL Baso # (Auto) 0.06 (0.00-0.30) K/mcL VBG Lactic Acid (0.5-2.0) mmol/L Sodium 137 (133-145) mmol/L Potassium 3.7 (3.3-5.1) mmol/L Chloride 102 (96-108) mmol/L Carbon Dioxide 19 L (22-30) mmol/L Anion Gap 16.0 (8-16) BUN 19 (8-23) mg/dl Creatinine 1.0 (0.7-1.2) mg/dl GFR Calculation 71 Glucose 104 (70-105) mg/dL Calcium 9.6 (8.6-10.4) mg/dl Total Bilirubin 0.5 (0.0-1.0) mg/dL AST 18 (0-37) U/l ALT 11 (0-40) U/l Alkaline Phosphatase 102 (39-117) U/L Total Protein 6.9 (5.9-8.4) gm/dL Albumin 4.1 (3.2-5.2) gm/dL Globulin 2.8 (2.2-3.7) gm/dL Albumin/Globulin Ratio 1.5 (1.0-2.3) Urine Color Yellow Urine Appearance Clear Urine pH 7.0 (5.0-9.0) Ur Specific [place] 1.009 (1.000-1.035) Urine Protein Neg (NEG) mg/dL Urine Glucose (UA) Negative (NEG) mg/dL Urine Ketones Neg (NEG) mg/dL Urine Occult Blood Neg (<0.03) mg/dL Urine Nitrate Neg (NEG) Urine Bilirubin Neg (NEG) mg/dL Urine Urobilinogen Neg (NEG) mg/dL Ur Leukocyte Esterase Neg (NEG) /uL Urine RBC 1 (0-1) /hpf Urine WBC 2 (0-4) /hpf Ur Squamous Epith Cells 0 (0-4) /hpf Ur Transition Epith Cell < 1 (0-2) /hpf Urine Bacteria 0 (0) /hpf Urine Mucus Few (0) /hpf Ur Culture Indicated? No 08/26/19 Range/Units 15:14 WBC (4.50-11.00) K/mcL RBC (4.63-6.08) M/mcL Hgb (13.7-17.5) g/dL Hct (40.1-51.0) % MCV (80.0-100.0) fL MCH (26.0-34.0) pg MCHC (31.0-36.0) g/dL RDW (11.5-14.5) % Plt Count (140-440) K/mcL MPV (7.4-10.4) fL Gran % (38.0-78.0) % Lymph % (Auto) (15.5-49.0) % [place]ison % (Auto) (1.0-12.0) % Eos % (Auto) (0.0-7.0) % Baso % (Auto) (0.0-2.0) % Gran # (1.80-8.00) K/mcL Lymph # (Auto) (1.50-4.80) K/mcL Addison # (Auto) (0.10-0.90) K/mcL Eos # (Auto) (0.00-0.70) K/mcL Baso # (Auto) (0.00-0.30) K/mcL VBG Lactic Acid 2.1 H (0.5-2.0) mmol/L Sodium (133-145) mmol/L Potassium (3.3-5.1) mmol/L Chloride (96-108) mmol/L Carbon Dioxide (22-30) mmol/L Anion Gap (8-16) BUN (8-23) mg/dl Creatinine (0.7-1.2) mg/dl GFR Calculation Glucose (70-105) mg/dL Calcium (8.6-10.4) mg/dl Total Bilirubin (0.0-1.0) mg/dL AST (0-37) U/l ALT (0-40) U/l Alkaline Phosphatase (39-117) U/L Total Protein (5.9-8.4) gm/dL Albumin (3.2-5.2) gm/dL Globulin (2.2-3.7) gm/dL Albumin/Globulin Ratio (1.0-2.3) Urine Color Urine Appearance Urine pH (5.0-9.0) Ur Specific [place] (1.000-1.035) Urine Protein (NEG) mg/dL Urine Glucose (UA) (NEG) mg/dL Urine Ketones (NEG) mg/dL Urine Occult Blood (<0.03) mg/dL Urine Nitrate (NEG) Urine Bilirubin (NEG) mg/dL Urine Urobilinogen (NEG) mg/dL Ur Leukocyte Esterase (NEG) /uL Urine RBC (0-1) /hpf Urine WBC (0-4) /hpf Ur Squamous Epith Cells (0-4) /hpf Ur Transition Epith Cell (0-2) /hpf Urine Bacteria (0) /hpf Urine Mucus (0) /hpf Ur Culture Indicated? Disposition Pt seen by [employer] SUPERVISOR/PA only: No Clinical Impression: Altered mental status Dementia Qualifiers: Dementia type: unspecified type Dementia behavioral disturbance: with behavioral disturbance Qualified Code(s): F03.91 - Unspecified dementia with behavioral disturbance Knee osteoarthritis Qualifiers: Osteoarthritis type: unspecified Laterality: bilateral Qualified Code(s): M17.0 - Bilateral primary osteoarthritis of knee Disposition: Still a Patient Condition: Fair Referrals: Denny Land DO [Primary Care Provider] -
[2019-09-02] MEDS: LEVOTHYROXINE 25 MCG TABLET PO SCH (09:43)
[2019-09-02] MEDS: OLANZapine 2.5 MG TABLET PO PRN ×5 (09:43→22:35)
[2019-09-02] MEDS: LEVOTHYROXINE SODIUM 112 MCG TABLET PO SCH (09:43)
--- NOTE | 2019-09-02 17:50 | Internal Med History&Physical ---
Medical - H&P: HPI Patient information: Note initiated : 09/02/19 at 5:49 pm Service Date, if different from initiated Date: [] Patient: Simone Schwab a 79 y/o M admitted on for altered mental status. Chief Complaint: [] Chief complaint: Dementia, inability to care for self, lack of guardianship History of present illness: Mr. Schwab is a 79 year old M who was brought into the ER a week ago with mental status change. Patient was evaluated and due to lack of available discharge planning/background psych issues patient was unable to be discharged. He has been managed in the ER for last 7 days. I was requested to admit the patient to facilitate ongoing care until guardianship could be obtained in a safe discharge plan available. Reviewed notes from the ER visit and subsequent care as below 08/26 79-year-old male with known moderate to severe dementia comes in via EMS at the request of APS. Apparently he left [facility] yesterday AMA after being admitted for abdominal pain. He was found wandering outside inappropriately dressed for the weather; his ostomy bag was inappropriately open. He is unable to give me any meaningful history or review of system. However he does note that he is having some knee and ankle pain-although he is walking around without difficulty I reviewed the notes from [facility]-he was discharged AMA with some Zyprexa Patient is clearly at his baseline dementia and we do not have any evidence of recurrent infection or inflammatory disease process to account for his worsening behavior. Suspect his dementia is just getting worse with behavioral disturbances becoming more common. While I do not have a medical diagnosis to admit the patient; APS agentMaddy, came and saw the patient. She is planning on placing him under guardianship with [facility] and looking for a home for him. He is a hoarder and cannot go home to his house nor can he go to the custodial where he was before because of his violent behavior. He will need to go to a lockdown unit. He is on medical hold currently as he is a danger to himself and others because of his severe dementia-we cannot let him go home Bilateral knee x-rays show significant osteoarthritis. He is given Tylenol and then a little bit of hydrocodone later on for pain. He was given Toradol as well He was having trouble settling down so we gave him 5 mg of Haldol which worked for a little bit. We then gave him a little bit of Seroquel as the day wore on. He ended up getting a second dose for total of 200 mg. Patient was able to sleep later on the evening 08/27- This patient has been quite calm and stable throughout his stay here today. However he is been getting up and wandering vaughn does not seem to want to stay in his room. We did give him Ativan p.o. and finally some Haldol 5 mg IM. He is now in his room sleeping or watching TV. This patient continued to remain quite stable during the night. He was up walking around the ER occasionally. He requested something to help him sleep and we gave him 2 mg of Ativan p.o. He did sleep during the night. He has not been combative agitated or aggressive at all. At this time he still awaits placement. 08/28- I reevaluated this 79-year-old demented patient again today. He is doing well walking eating talking etc. without difficulty. He remains in our ER as we look for placement secondary to his cognitive issues. He remains a danger to himself and others. There is a sitter. Brief review of systems is negative-no trouble eating walking pain shortness of breath or new complaint Social work and administrative staff continue to work on placement for this individual. [place] [employer] was here as well to evaluate the patient. He remains with a sitter. He did have to receive some Ativan last night to help him sleep and we may give him that again. Placement is pending as late as 3 days 08/29- See previous notes. Patient has remained stable overnight and this morning with no complaints except he reports an occasional to intermittent low-grade headache. Later asked for Tylenol which was prescribed. He is not agitated, is interactive and pleasant. Seems to be satisfied with reading and watching TV or videos. Awaiting placement. 08/31- For most of my shift this patient remained quite calm and stable but during the night he had great difficulty sleeping was somewhat agitated and required quite a bit of medication. I finally gave him 10 mg of Haldol IM and he seemed to sleep and be less of a problem the rest of the night. This is on top of Seroquel Zyprexa Ativan. 09/02- I extensively reviewed this patient's medical record from his 25-day admission at [facility] and the medications that he has been on. Have also done some ex tensive review reference literature on the way to treat agitation and dementia. I decided to limit this patient's medication for agitation to Zyprexa 5 mg twice a day. This is the higher recommended dose but he has been on 2.5 mg and not done well. Over the last 24 hours he did not require Ativan. We have stopped Benadryl Seroquel and Ambien. He continues to get his melatonin 10 mg at bedtime and Zyprexa 5 mg twice a day orally. It is our hope that this will be an adequate regimen to control his symptoms. I did place a call to the psychiatry line and have not heard back from them yet. I was able to speak with Dr. Barnes a psychiatrist at [facility]. She agreed with the approach that we are beginning to take is using only Zyprexa. She recommended stopping Depakote. Recommended against any benzodiazepines and also against Seroquel risperidone and Benadryl. These anticholinergics can have an adverse effect with the patient. Her recommendation is to use Zyprexa as baseline and as needed up to a maximum dose of 20 mg a day. Patient actually does seem to be improved from yesterday. We will continue Zyprexa 5 mg twice a day as a baseline and used 2.5 to 5 mg as needed as needed up to a maximum of 20 mg. 09/02 Patient now being admitted to [facility] - H&P: [facility] Medical history: Hypertension, essential (Chronic) COPD (chronic obstructive pulmonary disease) (Chronic) Hypothyroidism, acquired (Chronic) Valvular heart disease (Chronic) Macular degeneration (Chronic) Degenerative joint disease, shoulder, right (Chronic) BPH (benign prostatic hyperplasia) (Chronic) Fibromyalgia (Chronic) Chronic fatigue syndrome (Chronic) Hearing loss (Chronic) Pneumonia (Resolved) Past Surgical History (Last Updated 10/11/18 @ 16:45 by Robert Ghosh DO) H/O pyloroplasty (Acute) H/O vagotomy (Acute) History of repair of hiatal hernia (Acute) S/P cataract surgery (Acute) S/P tonsillectomy (Acute) 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 for ischemic colitis Family history: Patient's mother at age 60 due to comp occasions associated old age Social history: Denies tobacco use occasional use alcohol Occasionally uses cane Lives by himself and occasionally with his son use No guardian at present Medical - H&P: Meds Home Medications Medication Instructions Recorded Confirmed Type aspirin 325 mg tablet 325 mg PO QDAY 07/21/19 09/02/19 History ibuprofen 200 mg tablet 200 mg PO QID PRN 07/21/19 09/02/19 History levothyroxine 137 mcg capsule 137 mcg PO QDAY 07/21/19 09/02/19 History melatonin 10 mg capsule 10 mg PO HS PRN 07/21/19 09/02/19 History tamsulosin 0.4 mg capsule 0.4 mg PO QDAY 07/21/19 09/02/19 History OLANZapine [Zyprexa] 2.5 - 5 mg PO Q2HP PRN 09/02/19 09/02/19 History Allergies Allergy/AdvReac Type Severity Reaction Status Date / Time bee venom protein (honey bee) Allergy Severe Swelling Verified 07/21/19 12:05 Zolpidem [From Ambien] AdvReac Severe Anxiety Verified 08/30/19 23:27 amitriptyline [AMITRIPTYLINE] AdvReac Mild RASH, Verified 07/21/19 12:05 ITCHING Diclofenac [From Voltaren] AdvReac Mild Rash Verified 07/21/19 12:05 clindamycin AdvReac Rash Verified 08/30/19 23:27 Medical - H&P: Exam - Constitutional Vitals: Temp Pulse Resp BP Pulse Ox 97.8 F 77 18 129/70 97 09/02/19 09:43 09/02/19 09:43 09/02/19 09:43 09/02/19 09:43 09/02/19 09:43 General appearance: no acute distress Exam: Alert Head normocephalic Oral cavity dry No ear nose discharge Neck no lymphadenopathy S1-S2 regular Nonlabored breathing Abdomen soft nontender colostomy bag in place No lymphedema No joint swelling erythema Skin no suspicious lesion Psych anxious wanting to leave but no agitation Neuro moving all 4 extremities Medical - H&P: Reslt - Labs CBC & Chem 7: 09/02/19 17:56 09/02/19 17:56 Medical - H&P: A/P (1) Altered mental status Current visit: Yes Status: Acute * Advanced dementia with intermittent psychosis currently well controlled on Zyprexa. Benadryl, Seroquel, Ambien, Ativan/Depakote has been stopped. Psychiatry recommends against using Seroquel/risperidone/benzodiazepine or Benadryl due to anticholinergic effect. Await placement. * Prophylaxis Lovenox * Full code Plan * Uptitrate Zyprexa to effect * Close monitoring and fall risk watch * Dementia care * PT OT nutrition support * Discharge planning per case management
[2019-09-02] MEDS ORDERED: MAGNESIUM HYDROXIDE 30 ML ORAL.SUSP PO PRN (18:40)
[2019-09-02 18:57] LABS: Basophils # (Auto) 0.08 K/mcL (0.00-0.30); Basophils % (Auto) 0.8 % (0.0-2.0); Eosinophils # (Auto) 0.08 K/mcL (0.00-0.70); Eosinophils % (Auto) 0.8 % (0.0-7.0); Granulocytes % (Auto) 63.4 % (38.0-78.0); Hematocrit 38.4 % (40.1-51.0); Hemoglobin 12.6 g/dL (13.7-17.5); Lymphocytes % (Auto) 23.2 % (15.5-49.0); Mean Corpuscular HGB Conc 32.8 g/dL (31.0-36.0); Mean Platelet Volume 9.9 fL (7.4-10.4); Monocytes # (Auto) 1.22 K/mcL (0.10-0.90); Monocytes % (Auto) 11.8 % (1.0-12.0); Platelet Count 315 K/mcL (140-440); RBC 4.13 M/mcL (4.63-6.08); Red Cell Distribution Width 14.7 % (11.5-14.5); WBC 10.4 K/mcL (4.50-11.00)
[2019-09-02 19:13] LABS: ALT/SGPT 12 U/l (0-40); AST/SGOT 21 U/l (0-37); Albumin/Globulin Ratio 1.3 (1.0-2.3); Alkaline Phosphatase 129 U/L (39-117); Bilirubin,Total 0.2 mg/dL (0.0-1.0); Blood Urea Nitrogen 22 mg/dl (8-23); Calcium 8.9 mg/dl (8.6-10.4); Carbon Dioxide 21 mmol/L (22-30); Chloride 100 mmol/L (96-108); Glomerular Filtration Rate 64; Glucose 92 mg/dL (70-105)
[2019-09-02] MEDS: LORazepam 1 MG TABLET PO SCH (19:55)
[2019-09-02] MEDS: ZOLPIDEM 5 MG TABLET PO SCH (19:55)
[2019-09-02] MEDS: QUEtiapine 100 MG TABLET PO SCH (19:55)
[2019-09-02] MEDS: OLANZapine 2.5 MG TABLET PO SCH (19:56)
[2019-09-02] MEDS: ACETAMINOPHEN 325 MG TABLET PO PRN (20:24)
[2019-09-02] MEDS: TAMSULOSIN 0.4 MG CAPSULE PO SCH (20:25)
[2019-09-02] MEDS: MELATONIN 3 MG TABLET PO PRN (20:25)
[2019-09-02] MEDS: DOCUSATE SODIUM 100 MG CAPSULE PO SCH (20:26)
[2019-09-02] MEDS ORDERED: 0.9 % SODIUM CHLORIDE 10 ML SYRINGE IV SCH (22:00)
[2019-09-03] MEDS: ACETAMINOPHEN 325 MG TABLET PO PRN ×2 (02:33→13:27)
[2019-09-03] MEDS: OLANZapine 2.5 MG TABLET PO PRN ×5 (02:33→23:21)
[2019-09-03] MEDS: IBUPROFEN 200 MG TABLET PO PRN ×3 (07:02→23:21)
[2019-09-03] MEDS: LEVOTHYROXINE SODIUM 112 MCG TABLET PO SCH (07:28)
[2019-09-03] MEDS: LEVOTHYROXINE 25 MCG TABLET PO SCH (07:28)
[2019-09-03] MEDS: ENOXAPARIN 40 MG/0.4 ML SYRINGE SQ SCH (08:46)
[2019-09-03] MEDS: DOCUSATE SODIUM 100 MG CAPSULE PO SCH ×2 (08:46→21:01)
--- NOTE | 2019-09-03 10:36 | Internal Med Progress Note ---
Medical - PN: Subj Patient information: Note initiated : 09/03/19 at 10:33 am Service Date, if different from initiated Date: [] Patient: Simone Schwab 79 y/o M admitted on 09/02/19 for altered mental status. Chief Complaint: [] Interval history: Reviewed notes from the ER visit and subsequent care as below 08/26 79-year-old male with known moderate to severe dementia comes in via EMS at the request of APS. Apparently he left [facility] yesterday AMA after being admitted for abdominal pain. He was found wandering outside inappropriately dressed for the weather; his ostomy bag was inappropriately open. He is unable to give me any meaningful history or review of system. However he does note that he is having some knee and ankle pain-although he is walking around without difficulty I reviewed the notes from [facility]-he was discharged AMA with some Zyprexa Patient is clearly at his baseline dementia and we do not have any evidence of recurrent infection or inflammatory disease process to account for his worsening behavior. Suspect his dementia is just getting worse with behavioral disturbances becoming more common. While I do not have a medical diagnosis to admit the patient; APS agent, Maddy, came and saw the patient. She is planning on placing him under guardianship with [employer] and looking for a home for him. He is a hoarder and cannot go home to his house nor can he go to the snf where he was before because of his violent behavior. He will need to go to a lockdown unit. He is on medical hold currently as he is a danger to himself and others because of his severe dementia-we cannot let him go home Bilateral knee x-rays show significant osteoarthritis. He is given Tylenol and then a little bit of hydrocodone later on for pain. He was given Toradol as well He was having trouble settling down so we gave him 5 mg of Haldol which worked for a little bit. We then gave him a little bit of Seroquel as the day wore on. He ended up getting a second dose for total of 200 mg. Patient was able to sleep later on the evening 08/27- This patient has been quite calm and stable throughout his stay here today. However he is been getting up and wandering vaughn does not seem to want to stay in his room. We did give him Ativan p.o. and finally some Haldol 5 mg IM. He is now in his room sleeping or watching TV. This patient continued to remain quite stable during the night. He was up walking around the ER occasionally. He requested something to help him sleep and we gave him 2 mg of Ativan p.o. He did sleep during the night. He has not been combative agitated or aggressive at all. At this time he still awaits placement. 08/28- I reevaluated this 79-year-old demented patient again today. He is doing well walking eating talking etc. without difficulty. He remains in our ER as we look for placement secondary to his cognitive issues. He remains a danger to himself and others. There is a sitter. Brief review of systems is negative-no trouble eating walking pain shortness of breath or new complaint Social work and administrative staff continue to work on placement for this individual. [place] [employer] was here as well to evaluate the patient. He remains with a sitter. He did have to receive some Ativan last night to help him sleep and we may give him that again. Placement is pending as late as 3 days 08/29- See previous notes. Patient has remained stable overnight and this morning with no complaints except he reports an occasional to intermittent low-grade headache. Later asked for Tylenol which was prescribed. He is not agitated, is interactive and pleasant. Seems to be satisfied with reading and watching TV or videos. Awaiting placement. 08/31- For most of my shift this patient remained quite calm and stable but during the night he had great difficulty sleeping was somewhat agitated and required quite a bit of medication. I finally gave him 10 mg of Haldol IM and he seemed to sleep and be less of a problem the rest of the night. This is on top of Seroquel Zyprexa Ativan. 09/02- I extensively reviewed this patient's medical record from his 25-day admission at [facility] and the medications that he has been on. Have also done some extensive review reference literature on the way to treat agitation and dementia. I decided to limit this patient's medication for agitation to Zyprexa 5 mg twice a day. This is the higher recommended dose but he has been on 2.5 mg and not done well. Over the last 24 hours he did not require Ativan. We have stopped Benadryl Seroquel and Ambien. He continues to get his melatonin 10 mg at b edtime and Zyprexa 5 mg twice a day orally. It is our hope that this will be an adequate regimen to control his symptoms. I did place a call to the psychiatry line and have not heard back from them yet. I was able to speak with Dr. Barnes a psychiatrist at [facility]. She agreed with the approach that we are beginning to take is using only Zyprexa. She recommended stopping Depakote. Recommended against any benzodiazepines and also against Seroquel risperidone and Benadryl. These anticholinergics can have an adverse effect with the patient. Her recommendation is to use Zyprexa as baseline and as needed up to a maximum dose of 20 mg a day. Patient actually does seem to be improved from yesterday. We will continue Zyprexa 5 mg twice a day as a baseline and used 2.5 to 5 mg as needed as needed up to a maximum of 20 mg. 09/02 Patient now being admitted to [facility] Mr. Schwab is a 79 year old M who was brought into the ER a week ago with mental status change. Patient was evaluated and due to lack of available discharge planning/background psych issues patient was unable to be discharged. He has been managed in the ER for last 7 days. I was requested to admit the patient to facilitate ongoing care until guardianship could be obtained in a safe discharge plan available. 09/03-patient doing well overnight. No paranoia or agitation. Ambulating and tolerating diet. Ongoing nursing care. Patient wanted to leave AMA last night. Ongoing stoma care. Watching TV. Case management coordinating discharge planning/guardianship. On Zyprexa 2.5 as needed. - Constitutional Vitals: Vital Signs Temp Pulse Resp BP Pulse Ox 98.0 F 100 H 16 107/68 95 09/03/19 07:08 09/03/19 07:08 09/03/19 07:08 09/03/19 07:08 09/03/19 07:08 Period Temp Pulse Resp BP Sys/Rodriguez Pulse Ox Last 24 Hr 97.8 F-98.2 F 77-100 16-24 107-152/68-70 95-100 Intake and Output 0109/03/19 09/03/19 21:59 05:59 13:59 Intake Total 800 Output Total 50 Balance 750 Weight 155 lb 6.4 oz Intake & Output: Intake & Output 09/02/19 09/03/19 09/03/19 21:59 05:59 13:59 Intake Total 800 Output Total 50 Balance 750 Weight 155 lb 6.4 oz Intake: Oral 800 Output: Stool 50 Other: Stool Color Brown Avelino Colored Stool Consistency Normal for Patient Soft General appearance: no acute distress Exam: Ambulating Alert No agitation Abdomen soft ostomy Nonlabored breathing Medical - PN: Obj Da - Labs CBC & Chem 7: 09/02/19 17:56 09/02/19 17:56 Labs: Abnormal Lab Results 09/02/19 09/02/19 17:56 17:56 RBC 4.13 L Hgb 12.6 L Hct 38.4 L RDW 14.7 H [place] # (Auto) 1.22 H Carbon Dioxide 21 L Alkaline Phosphatase 129 H Meds: Medications Acetaminophen (Tylenol) 650 mg PO Q6HP PRN; Protocol PRN Reason: Per Pain Protocol/Fever > 101 Last Admin: 09/03/19 02:33 Dose: 650 mg Documented by: Docusate Sodium (Colace) 100 mg PO BID [facility] Last Admin: 09/03/19 08:46 Dose: 100 mg Documented by: Enoxaparin Sodium (Lovenox) 40 mg SQ DAILY [facility] Last Admin: 09/03/19 08:46 Dose: 40 mg Documented by: Ibuprofen (Motrin) 400 mg PO Q4HP PRN; Protocol PRN Reason: Per Pain Protocol Last Admin: 09/03/19 07:02 Dose: 400 mg Documented by: Levothyroxine Sodium (Synthroid) 25 mcg PO QAMAC [facility] Last Admin: 09/03/19 07:28 Dose: 25 mcg Documented by: Levothyroxine Sodium (Synthroid) 112 mcg PO QAMAC [facility] Last Admin: 09/03/19 07:28 Dose: 112 mcg Documented by: Magnesium Hydroxide (Milk Of Magnesia) 30 ml PO DAILYP PRN PRN Reason: Constipation Melatonin (Melatonin 3mg Tablet) 9 mg PO HSP PRN PRN Reason: Insomnia Last Admin: 09/02/19 20:25 Dose: 9 mg Documented by: Olanzapine (Zyprexa) 2.5 - 5 mg PO Q2HP PRN PRN Reason: Agitation Last Admin: 09/03/19 10:13 Dose: 2.5 mg Documented by: Tamsulosin HCl (Flomax) 0.4 mg PO HS [place] Last Admin: 09/02/19 20:25 Dose: 0.4 mg Documented by: Medical - PN: A/P - Time Spent With Patient Total time spent is greater than 50% in coordination of care (as documented) at patient's floor/unit and/or counseling patient: 15 - 24 minutes (1) Altered mental status Status: Acute Assessment and plan: * Advanced dementia with intermittent psychosis/agitation currently well controlled on Zyprexa. Intermittently forgetful but cooperative. Psychiatry recommends against using Ambien/Seroquel/risperidone/benzodiazepine or Benadryl due to anticholinergic effect. On as needed Zyprexa 2.5 * Prophylaxis Lovenox * Full code Plan * Continue Zyprexa for intermittent agitation * Frequent reorientation and delirium watch * Dementia care * Ostomy care * PT OT nutrition support * Discharge planning per case management Current Visit: Yes Medical - PN: Qual - Stroke Symptom Onset Unknown: No - VTE Deep Vein Thrombosis/Pulmonary Embolism Present on Admission: No
[2019-09-03] MEDS: ACETAMINOPHEN 325 MG TABLET PO SCH ×2 (17:04→21:10)
[2019-09-03] MEDS: MELATONIN 3 MG TABLET PO PRN (21:01)
[2019-09-03] MEDS: TAMSULOSIN 0.4 MG CAPSULE PO SCH (21:01)
[2019-09-04] MEDS: ACETAMINOPHEN 325 MG TABLET PO SCH ×6 (00:55→20:39)
[2019-09-04 06:17] LABS: Appearance,Urine CLEAR; Bilirubin,Urine NEG (NEG); Color,Urine STRAW; Glucose,Urine (UA) NEGATIVE (NEG); Ketones,Urine NEG (NEG); Leukocyte Esterase,Urine NEG /uL (NEG); Nitrate,Urine NEG (NEG); Protein,Urine NEG (NEG); Specific Gravity,Urine 1.004 (1.000-1.035); Urine Blood NEG mg/dL (<0.03); Urobilinogen,Urine NEG (NEG)
[2019-09-04] MEDS: LEVOTHYROXINE SODIUM 112 MCG TABLET PO SCH (09:24)
[2019-09-04] MEDS: DOCUSATE SODIUM 100 MG CAPSULE PO SCH ×2 (09:25→20:39)
[2019-09-04] MEDS: LEVOTHYROXINE 25 MCG TABLET PO SCH (09:28)
[2019-09-04] MEDS: OLANZapine 2.5 MG TABLET PO PRN ×3 (13:54→22:42)
[2019-09-04] MEDS: ENOXAPARIN 40 MG/0.4 ML SYRINGE SQ SCH (13:57)
[2019-09-04] MEDS: TAMSULOSIN 0.4 MG CAPSULE PO SCH (20:39)
[2019-09-04] MEDS: MELATONIN 3 MG TABLET PO PRN (20:43)
[2019-09-04] MEDS: IBUPROFEN 200 MG TABLET PO PRN (22:42)
--- NOTE | 2019-09-04 22:59 | Internal Med Progress Note ---
Medical - PN: Subj Patient information: Note initiated : 09/04/19 at 10:58 pm Service Date, if different from initiated Date: [] Patient: Simone Schwab 79 y/o M admitted on 09/02/19 for altered mental status. Chief Complaint: [] Interval history: Reviewed notes from the ER visit and subsequent care as below 08/26 79-year-old male with known moderate to severe dementia comes in via EMS at the request of APS. Apparently he left [facility] yesterday AMA after being admitted for abdominal pain. He was found wandering outside inappropriately dressed for the weather; his ostomy bag was inappropriately open. He is unable to give me any meaningful history or review of system. However he does note that he is having some knee and ankle pain-although he is walking around without difficulty I reviewed the notes from [facility]-he was discharged AMA with some Zyprexa Patient is clearly at his baseline dementia and we do not have any evidence of recurrent infection or inflammatory disease process to account for his worsening behavior. Suspect his dementia is just getting worse with behavioral disturbances becoming more common. While I do not have a medical diagnosis to admit the patient; APS agent, Maddy, came and saw the patient. She is planning on placing him under guardianship with [employer] and looking for a home for him. He is a hoarder and cannot go home to his house nor can he go to the [facility] where he was before because of his violent behavior. He will need to go to a lockdown unit. He is on medical hold currently as he is a danger to himself and others because of his severe dementia-we cannot let him go home Bilateral knee x-rays show significant osteoarthritis. He is given Tylenol and then a little bit of hydrocodone later on for pain. He was given Toradol as well He was having trouble settling down so we gave him 5 mg of Haldol which worked for a little bit. We then gave him a little bit of Seroquel as the day wore on. He ended up getting a second dose for total of 200 mg. Patient was able to sleep later on the evening 08/27- This patient has been quite calm and stable throughout his stay here today. However he is been getting up and wandering vaughn does not seem to want to stay in his room. We did give him Ativan p.o. and finally some Haldol 5 mg IM. He is now in his room sleeping or watching TV. This patient continued to remain quite stable during the night. He was up walking around the ER occasionally. He requested something to help him sleep and we gave him 2 mg of Ativan p.o. He did sleep during the night. He has not been combative agitated or aggressive at all. At this time he still awaits placement. 08/28- I reevaluated this 79-year-old demented patient again today. He is doing well walking eating talking etc. without difficulty. He remains in our ER as we look for placement secondary to his cognitive issues. He remains a danger to himself and others. There is a sitter. Brief review of systems is negative-no trouble eating walking pain shortness of breath or new complaint Social work and administrative staff continue to work on placement for this individual. [place] [employer] was here as well to evaluate the patient. He remains with a sitter. He did have to receive some Ativan last night to help him sleep and we may give him that again. Placement is pending as late as 3 days 08/29- See previous notes. Patient has remained stable overnight and this morning with no complaints except he reports an occasional to intermittent low-grade headache. Later asked for Tylenol which was prescribed. He is not agitated, is interactive and pleasant. Seems to be satisfied with reading and watching TV or videos. Awaiting placement. 08/31- For most of my shift this patient remained quite calm and stable but during the night he had great difficulty sleeping was somewhat agitated and required quite a bit of medication. I finally gave him 10 mg of Haldol IM and he seemed to sleep and be less of a problem the rest of the night. This is on top of Seroquel Zyprexa Ativan. 09/02- I extensively reviewed this patient's medical record from his 25-day admission at [facility] and the medications that he has been on. Have also done some extensive review reference literature on the way to treat agitation and dementia. I decided to limit this patient's medication for agitation to Zyprexa 5 mg twice a day. This is the higher recommended dose but he has been on 2.5 mg and not done well. Over the last 24 hours he did not require Ativan. We have stopped Benadryl Seroquel and Ambien. He continues to get his melatonin 10 mg at b edtime and Zyprexa 5 mg twice a day orally. It is our hope that this will be an adequate regimen to control his symptoms. I did place a call to the psychiatry line and have not heard back from them yet. I was able to speak with Dr. Barnes a psychiatrist at [facility]. She agreed with the approach that we are beginning to take is using only Zyprexa. She recommended stopping Depakote. Recommended against any benzodiazepines and also against Seroquel risperidone and Benadryl. These anticholinergics can have an adverse effect with the patient. Her recommendation is to use Zyprexa as baseline and as needed up to a maximum dose of 20 mg a day. Patient actually does seem to be improved from yesterday. We will continue Zyprexa 5 mg twice a day as a baseline and used 2.5 to 5 mg as needed as needed up to a maximum of 20 mg. 09/02 Patient now being admitted to [facility] Mr. Schwab is a 79 year old M who was brought into the ER a week ago with mental status change. Patient was evaluated and due to lack of available discharge planning/background psych issues patient was unable to be discharged. He has been managed in the ER for last 7 days. I was requested to admit the patient to facilitate ongoing care until guardianship could be obtained in a safe discharge plan available. 09/03-patient doing well overnight. No paranoia or agitation. Ambulating and tolerating diet. Ongoing nursing care. Patient wanted to leave AMA last night. Ongoing stoma care. Watching TV. Case management coordinating discharge planning/guardianship. On Zyprexa 2.5 as needed. 09/04-patient doing well. No agitation or paranoia. Unable to sleep all night however slept during the day. Tolerating diet, ambulating requiring Zyprexa 20 mg per 24 hours. Complains of degenerative joint pain currently on Tylenol - Constitutional Vitals: Vital Signs Temp Pulse Resp BP Pulse Ox 97.4 F 66 20 128/72 98 09/04/19 20:00 09/04/19 20:00 09/04/19 20:00 09/04/19 20:00 09/04/19 20:00 Period Temp Pulse Resp BP Sys/Rodriguez Pulse Ox Last 24 Hr 97.4 F 66 20 128/72 98 Intake and Output 09/04/19 09/04/19 09/05/19 13:59 21:59 05:59 Intake Total 720 1000 Balance 720 1000 Weight 154 lb 9.6 oz Patient Weight 09/05/19 05:59 Weight 154 lb 9.6 oz Intake & Output: Intake & Output 09/04/19 09/04/19 09/05/19 13:59 21:59 05:59 Intake Total 720 1000 Balance 720 1000 Weight 154 lb 9.6 oz Intake: Oral 720 1000 Other: Meal Dinner Lunch Percent of Meal Consumed 100% 100% Feeding Ability Independent Stool Size Moderate Stool Color Brown Stool Consistency Soft Liquid # Voids 3 General appearance: no acute distress Exam: No anxiety or paranoia Nonlabored breathing Colostomy output stable Medical - PN: Obj Da - Labs CBC & Chem 7: 09/02/19 17:56 09/02/19 17:56 Labs: Abnormal Lab Results 09/02/19 09/02/19 17:56 17:56 RBC 4.13 L Hgb 12.6 L Hct 38.4 L RDW 14.7 H [place] # (Auto) 1.22 H Carbon Dioxide 21 L Alkaline Phosphatase 129 H Meds: Medications Acetaminophen (Tylenol) 650 mg PO Q4H [facility]; Protocol Last Admin: 09/04/19 20:39 Dose: 650 mg Documented by: Docusate Sodium (Colace) 100 mg PO BID [facility] Last Admin: 09/04/19 20:39 Dose: 100 mg Documented by: Enoxaparin Sodium (Lovenox) 40 mg SQ DAILY [facility] Last Admin: 09/04/19 13:57 Dose: Not Given Documented by: Ibuprofen (Motrin) 400 mg PO Q4HP PRN; Protocol PRN Reason: Per Pain Protocol Last Admin: 09/04/19 22:42 Dose: 400 mg Documented by: Levothyroxine [facility] ([facility]) [facility] Last Admin: 09/04/19 09:28 Dose: 25 mcg Documented by: Levothyroxine Sodium (Synthroid) 112 mcg PO QAMAC [facility] Last Admin: 09/04/19 09:24 Dose: 112 mcg Documented by: Magnesium Hydroxide (Milk Of Magnesia) 30 ml PO DAILYP PRN PRN Reason: Constipation Melatonin (Melatonin 3mg Tablet) 9 mg PO HSP PRN PRN Reason: Insomnia Last Admin: 09/04/19 20:43 Dose: 9 mg Documented by: Olanzapine (Zyprexa) 2.5 - 5 mg PO Q2HP PRN PRN Reason: Agitation Last Admin: 09/04/19 22:42 Dose: 5 mg Documented by: Tamsulosin HCl (Flomax) 0.4 mg PO HS [place] Last Admin: 09/04/19 20:39 Dose: 0.4 mg Documented by: Medical - PN: A/P - Time Spent With Patient Total time spent is greater than 50% in coordination of care (as documented) at patient's floor/unit and/or counseling patient: 15 - 24 minutes (1) Altered mental status Status: Acute Assessment and plan: * Advanced dementia with intermittent psychosis/agitation currently well controlled on Zyprexa ( 20mg/24 Hrs). Intermittently forgetful but coopera tive. Wants to eave to get son out of care home. Psychiatry recommends against using Ambien/Seroquel/risperidone/benzodiazepine or Benadryl due to anticholinergic effect. On as needed Zyprexa 2.5 * Colostomy care * Degenerative joint disease-continue scheduled Tylenol * Prophylaxis Lovenox * Full code Plan * Continue Zyprexa for intermittent agitation * Frequent reorientation * Dementia care * Scheduled Tylenol * Ostomy care * PT OT nutrition support * Discharge planning per case management Current Visit: Yes Medical - PN: Qual - Stroke Symptom Onset Unknown: No - VTE Deep Vein Thrombosis/Pulmonary Embolism Present on Admission: No
[2019-09-05] MEDS: ACETAMINOPHEN 325 MG TABLET PO SCH ×6 (00:46→21:01)
[2019-09-05] MEDS: IBUPROFEN 200 MG TABLET PO PRN ×4 (02:41→23:05)
[2019-09-05] MEDS: LEVOTHYROXINE SODIUM 112 MCG TABLET PO SCH (07:53)
[2019-09-05] MEDS: LEVOTHYROXINE 25 MCG TABLET PO SCH (07:54)
[2019-09-05] MEDS: DOCUSATE SODIUM 100 MG CAPSULE PO SCH ×2 (08:32→21:03)
[2019-09-05] MEDS: ENOXAPARIN 40 MG/0.4 ML SYRINGE SQ SCH (08:49)
[2019-09-05] MEDS ORDERED: traMADol 50 MG TABLET PO ONE (09:52)
--- NOTE | 2019-09-05 10:16 | Internal Med Progress Note ---
Medical - PN: Subj Patient information: Note initiated : 09/05/19 at 10:14 am Service Date, if different from initiated Date: [] Patient: Simone Schwab 79 y/o M admitted on 09/02/19 for altered mental status. Chief Complaint: [] Interval history: Reviewed notes from the ER visit and subsequent care as below 08/26 79-year-old male with known moderate to severe dementia comes in via EMS at the request of APS. Apparently he left [facility] yesterday AMA after being admitted for abdominal pain. He was found wandering outside inappropriately dressed for the weather; his ostomy bag was inappropriately open. He is unable to give me any meaningful history or review of system. However he does note that he is having some knee and ankle pain-although he is walking around without difficulty I reviewed the notes from [facility]-he was discharged AMA with some Zyprexa Patient is clearly at his baseline dementia and we do not have any evidence of recurrent infection or inflammatory disease process to account for his worsening behavior. Suspect his dementia is just getting worse with behavioral disturbances becoming more common. While I do not have a medical diagnosis to admit the patient; APS agent, Maddy, came and saw the patient. She is planning on placing him under guardianship with [employer] and looking for a home for him. He is a hoarder and cannot go home to his house nor can he go to the snf where he was before because of his violent behavior. He will need to go to a lockdown unit. He is on medical hold currently as he is a danger to himself and others because of his severe dementia-we cannot let him go home Bilateral knee x-rays show significant osteoarthritis. He is given Tylenol and then a little bit of hydrocodone later on for pain. He was given Toradol as well He was having trouble settling down so we gave him 5 mg of Haldol which worked for a little bit. We then gave him a little bit of Seroquel as the day wore on. He ended up getting a second dose for total of 200 mg. Patient was able to sleep later on the evening 08/27- This patient has been quite calm and stable throughout his stay here today. However he is been getting up and wandering vaughn does not seem to want to stay in his room. We did give him Ativan p.o. and finally some Haldol 5 mg IM. He is now in his room sleeping or watching TV. This patient continued to remain quite stable during the night. He was up walking around the ER occasionally. He requested something to help him sleep and we gave him 2 mg of Ativan p.o. He did sleep during the night. He has not been combative agitated or aggressive at all. At this time he still awaits placement. 08/28- I reevaluated this 79-year-old demented patient again today. He is doing well walking eating talking etc. without difficulty. He remains in our ER as we look for placement secondary to his cognitive issues. He remains a danger to himself and others. There is a sitter. Brief review of systems is negative-no trouble eating walking pain shortness of breath or new complaint Social work and administrative staff continue to work on placement for this individual. [place] [employer] was here as well to evaluate the patient. He remains with a sitter. He did have to receive some Ativan last night to help him sleep and we may give him that again. Placement is pending as late as 3 days 08/29- See previous notes. Patient has remained stable overnight and this morning with no complaints except he reports an occasional to intermittent low-grade headache. Later asked for Tylenol which was prescribed. He is not agitated, is interactive and pleasant. Seems to be satisfied with reading and watching TV or videos. Awaiting placement. 08/31- For most of my shift this patient remained quite calm and stable but during the night he had great difficulty sleeping was somewhat agitated and required quite a bit of medication. I finally gave him 10 mg of Haldol IM and he seemed to sleep and be less of a problem the rest of the night. This is on top of Seroquel Zyprexa Ativan. 09/02- I extensively reviewed this patient's medical record from his 25-day admission at [facility] and the medications that he has been on. Have also done some extensive review reference literature on the way to treat agitation and dementia. I decided to limit this patient's medication for agitation to Zyprexa 5 mg twice a day. This is the higher recommended dose but he has been on 2.5 mg and not done well. Over the last 24 hours he did not require Ativan. We have stopped Benadryl Seroquel and Ambien. He continues to get his melatonin 10 mg at b edtime and Zyprexa 5 mg twice a day orally. It is our hope that this will be an adequate regimen to control his symptoms. I did place a call to the psychiatry line and have not heard back from them yet. I was able to speak with Dr. Barnes a psychiatrist at [facility]. She agreed with the approach that we are beginning to take is using only Zyprexa. She recommended stopping Depakote. Recommended against any benzodiazepines and also against Seroquel risperidone and Benadryl. These anticholinergics can have an adverse effect with the patient. Her recommendation is to use Zyprexa as baseline and as needed up to a maximum dose of 20 mg a day. Patient actually does seem to be improved from yesterday. We will continue Zyprexa 5 mg twice a day as a baseline and used 2.5 to 5 mg as needed as needed up to a maximum of 20 mg. 09/02 Patient now being admitted to [facility] Mr. Schwab is a 79 year old M who was brought into the ER a week ago with mental status change. Patient was evaluated and due to lack of available discharge planning/background psych issues patient was unable to be discharged. He has been managed in the ER for last 7 days. I was requested to admit the patient to facilitate ongoing care until guardianship could be obtained in a safe discharge plan available. 09/03-patient doing well overnight. No paranoia or agitation. Ambulating and tolerating diet. Ongoing nursing care. Patient wanted to leave AMA last night. Ongoing stoma care. Watching TV. Case management coordinating discharge planning/guardianship. On Zyprexa 2.5 as needed. 09/04-patient doing well. No agitation or paranoia. Unable to sleep all night however slept during the day. Tolerating diet, ambulating requiring Zyprexa 20 mg per 24 hours. Complains of degenerative joint pain currently on Tylenol 09/05-patient doing well. No overnight events. No concerns per staff. Unable to sleep during night but is has been sleeping well during the day. Case management actively coordinating guardianship processing and Medicaid application. Awaiting placement to facility. Patient intermittently grumpy. No fever chills - Constitutional Vitals: Vital Signs Temp Pulse Resp BP Pulse Ox 98.3 F 78 16 121/66 96 09/05/19 08:31 09/05/19 03:56 09/05/19 07:54 09/05/19 07:54 09/05/19 07:54 Period Temp Pulse Resp BP Sys/Rodriguez Pulse Ox Last 24 Hr 97.4 F-98.3 F 66-79 16-20 121-133/66-78 96-98 Intake and Output 09/04/19 09/05/19 09/05/19 21:59 05:59 13:59 Intake Total 1000 2500 Output Total 100 Balance 1000 2400 Weight 154 lb 9.6 oz Intake & Output: Intake & Output 09/04/19 09/05/19 09/05/19 21:59 05:59 13:59 Intake Total 1000 2500 Output Total 100 Balance 1000 2400 Weight 154 lb 9.6 oz Intake: Oral 1000 2500 Output: Stool 100 Other: Meal Lunch Nourishment/Supplement Percent of Meal Consumed 100% 100% Feeding Ability Independent Assist with Tray Set Up Stool Size Moderate Stool Color Brown Brown Stool Consistency Soft Soft Liquid Liquid # Voids 3 3 General appearance: no acute distress Exam: Alert and ambulating Nonlabored breathing No lymphedema Minimal anxiety Medical - PN: Obj Da - Labs CBC & Chem 7: 09/02/19 17:56 09/02/19 17:56 Labs: Abnormal Lab Results 09/02/19 09/02/19 17:56 17:56 RBC 4.13 L Hgb 12.6 L Hct 38.4 L RDW 14.7 H Jay # (Auto) 1.22 H Carbon Dioxide 21 L Alkaline Phosphatase 129 H Meds: Medications Acetaminophen (Tylenol) 650 mg PO Q4H [facility]; Protocol Last Admin: 09/05/19 08:31 Dose: 650 mg Documented by: Docusate Sodium (Colace) 100 mg PO BID [facility] Last Admin: 09/05/19 08:32 Dose: 100 mg Documented by: Enoxaparin Sodium (Lovenox) 40 mg SQ DAILY [facility] Last Admin: 09/05/19 08:49 Dose: 40 mg Documented by: Ibuprofen (Motrin) 400 mg PO Q4HP PRN; Protocol PRN Reason: Per Pain Protocol Last Admin: 09/05/19 08:05 Dose: 400 mg Documented by: Levothyroxine Sodium (Synthroid) 25 mcg PO QAMAC [facility] Last Admin: 09/05/19 07:54 Dose: 25 mcg Documented by: Levothyroxine Sodium (Synthroid) 112 mcg PO QAMAC [facility] Last Admin: 09/05/19 07:53 Dose: 112 mcg Documented by: Magnesium Hydroxide (Milk Of Magnesia) 30 ml PO DAILYP PRN PRN Reason: Constipation Melatonin (Melatonin 3mg Tablet) 9 mg PO HSP PRN PRN Reason: Insomnia Last Admin: 09/04/19 20:43 Dose: 9 mg Documented by: Olanzapine (Zyprexa) 2.5 - 5 mg PO Q2HP PRN PRN Reason: Agitation Last Admin: 09/04/19 22:42 Dose: 5 mg Documented by: Tamsulosin HCl (Flomax) 0.4 mg PO [facility] Last Admin: 09/04/19 20:39 Dose: 0.4 mg Documented by: Medical - PN: A/P - Time Spent With Patient Total time spent is greater than 50% in coordination of care (as documented) at patient's floor/unit and/or counseling patient: 15 - 24 minutes (1) Altered mental status Status: Acute Assessment and plan: * Advanced dementia with intermittent psychosis/agitation currently well controlled on Zyprexa ( 20mg/24 Hrs). Intermittently forgetful but cooperative. Wants to eave to get son out of [facility]. Psychiatry recommends against using Ambien/Seroquel/risperidone/benzodiazepine or Benadryl due to anticholinergic effect. On as needed Zyprexa 2.5 * Colostomy care * Degenerative joint disease-continue scheduled Tylenol, trial of tramadol. * Prophylaxis Lovenox * Full code Plan * Continue Zyprexa for intermittent agitation * Frequent reorientation/dementia care * Scheduled Tylenol/trial of tramadol * Ostomy care * PT OT nutrition support * Discharge planning per case management Current Visit: Yes Medical - PN: Qual - Stroke Symptom Onset Unknown: No - VTE Deep Vein Thrombosis/Pulmonary Embolism Present on Admission: No
--- NOTE | 2019-09-05 12:58 | Internal Med Progress Note ---
Medical - PN: Subj Patient information: Note initiated : 09/05/19 at 12:55 pm Service Date, if different from initiated Date: [] Patient: Simone Schwab 79 y/o M admitted on 09/02/19 for altered mental status. Chief Complaint: [] Interval history: 08/26 79-year-old male with known moderate to severe dementia comes in via EMS at the request of APS. Apparently he left [facility] yesterday AMA after being admitted for abdominal pain. He was found wandering outside inappropriately dressed for the weather; his ostomy bag was inappropriately open. He is unable to give me any meaningful history or review of system. However he does note that he is having some knee and ankle pain-although he is walking around without difficulty I reviewed the notes from [facility]-he was discharged AMA with some Zyprexa Patient is clearly at his baseline dementia and we do not have any evidence of recurrent infection or inflammatory disease process to account for his worsening behavior. Suspect his dementia is just getting worse with behavioral disturbances becoming more common. While I do not have a medical diagnosis to admit the patient; APS agent, Maddy, came and saw the patient. She is planning on placing him under guardianship with [employer] and looking for a home for him. He is a hoarder and cannot go home to his house nor can he go to [facility] because of his violent behavior. He will need to go to a lockdown unit. He is on medical hold currently as he is a danger to himself and others because of his severe dementia-we cannot let him go home Bilateral knee x-rays show significant osteoarthritis. He is given Tylenol and then a little bit of hydrocodone later on for pain. He was given Toradol as well He was having trouble settling down so we gave him 5 mg of Haldol which worked for a little bit. We then gave him a little bit of Seroquel as the day wore on. He ended up getting a second dose for total of 200 mg. Patient was able to sleep later on the evening 08/27- This patient has been quite calm and stable throughout his stay here today. However he is been getting up and wandering vaughn does not seem to want to stay in his room. We did give him Ativan p.o. and finally some Haldol 5 mg IM. He is now in his room sleeping or watching TV. This patient continued to remain quite stable during the night. He was up walking around the ER occasionally. He requested something to help him sleep and we gave him 2 mg of Ativan p.o. He did sleep during the night. He has not been combative agitated or aggressive at all. At this time he still awaits placement. 08/28- I reevaluated this 79-year-old demented patient again today. He is doing well walking eating talking etc. without difficulty. He remains in our ER as we look for placement secondary to his cognitive issues. He remains a danger to himself and others. There is a sitter. Brief review of systems is negative-no trouble eating walking pain shortness of breath or new complaint Social work and administrative staff continue to work on placement for this individual. [place] [employer] was here as well to evaluate the patient. He remains with a sitter. He did have to receive some Ativan last night to help him sleep and we may give him that again. Placement is pending as late as 3 days 08/29- See previous notes. Patient has remained stable overnight and this morning with no complaints except he reports an occasional to intermittent low-grade headache. Later asked for Tylenol which was prescribed. He is not agitated, is interactive and pleasant. Seems to be satisfied with reading and watching TV or videos. Awaiting placement. 08/31- For most of my shift this patient remained quite calm and stable but during the night he had great difficulty sleeping was somewhat agitated and required quite a bit of medication. I finally gave him 10 mg of Haldol IM and he seemed to sleep and be less of a problem the rest of the night. This is on top of Seroquel Zyprexa Ativan. 09/02- I extensively reviewed this patient's medical record from his 25-day admission at [facility] and the medications that he has been on. Have also done some extensive review reference literature on the way to treat agitation and dementia. I decided to limit this patient's medication for agitation to Zyprexa 5 mg twice a day. This is the higher recommended dose but he has been on 2.5 mg and not done well. Over the last 24 hours he did not require Ativan. We have stopped Benadryl Seroquel and Ambien. He continues to get his melatonin 10 mg at bedtime and Zyprexa 5 mg twice a day orally. It is our hope that this will be an adequate regimen to control his symptoms. I did place a call to the psychiatry line and have not heard back from them yet. I was able to speak with Dr. Barnes a psychiatrist at [facility]. She agreed with the approach that we are beginning to take is using only Zyprexa. She recommended stopping Depakote. Recommended against any benzodiazepines and also against Seroquel risperidone and Benadryl. These anticholinergics can have an adverse effect with the patient. Her recommendation is to use Zyprexa as baseline and as needed up to a maximum dose of 20 mg a day. Patient actually does seem to be improved from yesterday. We will continue Zyprexa 5 mg twice a day as a baseline and used 2.5 to 5 mg as needed as needed up to a maximum of 20 mg. 09/02 Patient now being admitted to [facility] Mr. Schwab is a 79 year old M who was brought into the ER a week ago with ment al status change. Patient was evaluated and due to lack of available discharge planning/background psych issues patient was unable to be discharged. He has been managed in the ER for last 7 days. I was requested to admit the patient to facilitate ongoing care until guardianship could be obtained in a safe discharge plan available. 09/03-patient doing well overnight. No paranoia or agitation. Ambulating and tolerating diet. Ongoing nursing care. Patient wanted to leave AMA last night. Ongoing stoma care. Watching TV. Case management coordinating discharge planning/guardianship. On Zyprexa 2.5 as needed. 09/04-patient doing well. No agitation or paranoia. Unable to sleep all night however slept during the day. Tolerating diet, ambulating requiring Zyprexa 20 mg per 24 hours. Complains of degenerative joint pain currently on Tylenol 09/05-patient doing well. No overnight events. No concerns per staff. Unable to sleep during night but is has been sleeping well during the day. Case management actively coordinating guardianship processing and Medicaid application. Awaiting placement to facility. Patient intermittently grumpy. No fever chills - Constitutional Vitals: Vital Signs Temp Pulse Resp BP Pulse Ox 98.0 F 78 18 121/66 95 09/05/19 12:00 09/05/19 03:56 09/05/19 12:00 09/05/19 07:54 09/05/19 12:00 Period Temp Pulse Resp BP Sys/Rodriguez Pulse Ox Last 24 Hr 97.4 F-98.3 F 66-79 16-20 121-133/66-78 95-98 Intake and Output 09/04/19 09/05/19 09/05/19 21:59 05:59 13:59 Intake Total 1000 2500 Output Total 100 500 Balance 1000 2400 -500 Weight 70.125 kg 70.125 kg Patient Weight 09/06/19 05:59 Weight 70.125 kg Intake & Output: Intake & Output 09/04/19 09/05/19 09/05/19 21:59 05:59 13:59 Intake Total 1000 2500 Output Total 100 500 Balance 1000 2400 -500 Weight 70.125 kg 70.125 kg Intake: Oral 1000 2500 Output: Stool 100 500 Other: Meal Lunch Nourishment/Supplement Percent of Meal Consumed 100% 100% Feeding Ability Independent Assist with Tray Set Up Stool Size Moderate Stool Color Brown Brown Stool Consistency Soft Soft Liquid Liquid # Voids 3 3 Exam: General: Alert, Awake, No acute Distress Eyes/N/T: EOMI, Head/Neck: neck supple, CV: RRR, No murmurs, Pulm: Clear b/l, no wheezing/rhonchi/rales Abd: soft, nontender, +BS x4 Ext: no clubbing/cyanosis/edema Neuro: Alert, no focal deficits, moves all extremities, Skin: warm/dry Medical - PN: Obj Da - Labs CBC & Chem 7: 09/02/19 17:56 09/02/19 17:56 Labs: Abnormal Lab Results 09/02/19 09/02/19 17:56 17:56 RBC 4.13 L Hgb 12.6 L Hct 38.4 L RDW 14.7 H Bartholomew # (Auto) 1.22 H Carbon Dioxide 21 L Alkaline Phosphatase 129 H Meds: Medications Acetaminophen (Tylenol) 650 mg PO Q4H [facility]; Protocol Last Admin: 09/05/19 12:44 Dose: 650 mg Documented by: Docusate Sodium (Colace) 100 mg PO BID [place] Last Admin: 09/05/19 08:32 Dose: 100 mg Documented by: Enoxaparin Sodium (Lovenox) 40 mg SQ DAILY [facility] Last Admin: 09/05/19 08:49 Dose: 40 mg Documented by: Ibuprofen (Motrin) 400 mg PO Q4HP PRN; Protocol PRN Reason: Per Pain Protocol Last Admin: 09/05/19 08:05 Dose: 400 mg Documented by: [facility] Last Admin: 09/05/19 07:54 Dose: 25 mcg Documented by: Levothyroxine Sodium (Synthroid) 112 mcg PO QAMAC [facility] Last Admin: 09/05/19 07:53 Dose: 112 mcg Documented by: Magnesium Hydroxide (Milk Of Magnesia) 30 ml PO DAILYP PRN PRN Reason: Constipation Melatonin (Melatonin 3mg Tablet) 9 mg PO HSP PRN PRN Reason: Insomnia Last Admin: 09/04/19 20:43 Dose: 9 mg Documented by: Olanzapine (Zyprexa) 2.5 - 5 mg PO Q2HP PRN PRN Reason: Agitation Last Admin: 09/04/19 22:42 Dose: 5 mg Documented by: Tamsulosin HCl (Flomax) 0.4 mg PO HS [facility] Last Admin: 09/04/19 20:39 Dose: 0.4 mg Documented by: Medical - PN: A/P - Time Spent With Patient Total time spent is greater than 50% in coordination of care (as documented) at patient's floor/unit and/or counseling patient: - Narrative A/P Narrative: A: *Advanced dementia with intermittent psychosis/agitation currently well controlled on Zyprexa ( 20mg/24 Hrs) -Intermittently forgetful but cooperative. Wants to leave to [facility] -Psychiatry recommends against using Ambien/Seroquel/risperidone/benzodiaze pine or Benadryl due to anticholinergic effect *Colostomy care *Degenerative joint disease: continue scheduled Tylenol, trial of tramadol. Plan -Continue Zyprexa for intermittent agitation -Frequent reorientation/dementia care -Scheduled Tylenol/trial of tramadol -Ostomy care -PT OT nutrition support -Discharge planning per case management -ppx: lovenox full code Medical - PN: Qual - Stroke Symptom Onset Unknown: No - VTE Deep Vein Thrombosis/Pulmonary Embolism Present on Admission: No
[2019-09-05] MEDS: OLANZapine 2.5 MG TABLET PO PRN ×2 (15:10→21:01)
[2019-09-05] MEDS: MELATONIN 3 MG TABLET PO PRN (21:01)
[2019-09-05] MEDS: TAMSULOSIN 0.4 MG CAPSULE PO SCH (21:03)
[2019-09-05] MEDS: traMADol 50 MG TABLET PO PRN (21:11)
[2019-09-06] MEDS: ACETAMINOPHEN 325 MG TABLET PO SCH ×6 (00:29→19:14)
[2019-09-06] MEDS: LEVOTHYROXINE 25 MCG TABLET PO SCH (06:50)
[2019-09-06] MEDS: traMADol 50 MG TABLET PO PRN (06:50)
[2019-09-06] MEDS: LEVOTHYROXINE SODIUM 112 MCG TABLET PO SCH (06:50)
[2019-09-06] MEDS: ENOXAPARIN 40 MG/0.4 ML SYRINGE SQ SCH (07:59)
[2019-09-06] MEDS: OLANZapine 5 MG TABLET PO SCH (07:59)
[2019-09-06] MEDS: DOCUSATE SODIUM 100 MG CAPSULE PO SCH ×2 (07:59→19:15)
--- NOTE | 2019-09-06 08:08 | Internal Med Progress Note ---
Medical - PN: Subj Patient information: Note initiated : 09/06/19 at 8:07 am Service Date, if different from initiated Date: [] Patient: Simone Schwab 79 y/o M admitted on 09/02/19 for altered mental status. Chief Complaint: [] Interval history: 08/26 79-year-old male with known moderate to severe dementia comes in via EMS at the request of APS. Apparently he left [facility] yesterday AMA after being admitted for abdominal pain. He was found wandering outside inappropriately dressed for the weather; his ostomy bag was inappropriately open. He is unable to give me any meaningful history or review of system. However he does note that he is having some knee and ankle pain-although he is walking around without difficulty I reviewed the notes from [facility]-he was discharged AMA with some Zyprexa Patient is clearly at his baseline dementia and we do not have any evidence of recurrent infection or inflammatory disease process to account for his worsening behavior. Suspect his dementia is just getting worse with behavioral disturbances becoming more common. While I do not have a medical diagnosis to admit the patient; APS agent, Maddy, came and saw the patient. She is planning on placing him under guardianship with [employer] and looking for a home for him. He is a hoarder and cannot go home to his house nor can he go to the detention where he was before because of his violent behavior. He will need to go to a lockdown unit. He is on medical hold currently as he is a danger to himself and others because of his severe dementia-we cannot let him go home Bilateral knee x-rays show significant osteoarthritis. He is given Tylenol and then a little bit of hydrocodone later on for pain. He was given Toradol as well He was having trouble settling down so we gave him 5 mg of Haldol which worked for a little bit. We then gave him a little bit of Seroquel as the day wore on. He ended up getting a second dose for total of 200 mg. Patient was able to sleep later on the evening 08/27- This patient has been quite calm and stable throughout his stay here t [facility]. However he is been getting up and wandering vaughn does not seem to want to stay in his room. We did give him Ativan p.o. and finally some Haldol 5 mg IM. He is now in his room sleeping or watching TV. This patient continued to remain quite stable during the night. He was up walking around the ER occasionally. He requested something to help him sleep and we gave him 2 mg of Ativan p.o. He did sleep during the night. He has not been combative agitated or aggressive at all. At this time he still awaits placement. 08/28- I reevaluated this 79-year-old demented patient again today. He is doing well walking eating talking etc. without difficulty. He remains in our ER as we look for placement secondary to his cognitive issues. He remains a danger to himself and others. There is a sitter. Brief review of systems is negative-no trouble eating walking pain shortness of breath or new complaint Social work and administrative staff continue to work on placement for this individual. [place] [employer] was here as well to evaluate the patient. He remains with a sitter. He did have to receive some Ativan last night to help him sleep and we may give him that again. Placement is pending as late as 3 days 08/29- See previous notes. Patient has remained stable overnight and this morning with no complaints except he reports an occasional to intermittent low-grade headache. Later asked for Tylenol which was prescribed. He is not agitated, is interactive and pleasant. Seems to be satisfied with reading and watching TV or videos. Awaiting placement. 08/31- For most of my shift this patient remained quite calm and stable but during the night he had great difficulty sleeping was somewhat agitated and required quite a bit of medication. I finally gave him 10 mg of Haldol IM and he seemed to sleep and be less of a problem the rest of the night. This is on top of Seroquel Zyprexa Ativan. 09/02- I extensively reviewed this patient's medical record from his 25-day admission at [facility] and the medications that he has been on. Have also done some extensive review reference literature on the way to treat agitation and dementia. I decided to limit this patient's medication for agitation to Zyprexa 5 mg twice a day. This is the higher recommended dose but he has been on 2.5 mg and not done well. Over the last 24 hours he did not require Ativan. We have stopped Benadryl Seroquel and Ambien. He continues to get his melatonin 10 mg at bedtime and Zyprexa 5 mg twice a day orally. It is our hope that this will be an adequate regimen to control his symptoms. I did place a call to the psychiatry line and have not heard back from them yet. I was able to speak with Dr. Barnes a psychiatrist at [facility]. She agreed with the approach that we are beginning to take is using only Zyprexa. She recommended stopping Depakote. Recommended against any benzodiazepines and also against Seroquel risperidone and Benadryl. These anticholinergics can have an adverse effect with the patient. Her recommendation is to use Zyprexa as baseline and as needed up to a maximum dose of 20 mg a day. Patient actually does seem to be improved from yesterday. We will continue Zyprexa 5 mg twice a day as a baseline and used 2.5 to 5 mg as needed as needed up to a maximum of 20 mg. 09/02 Patient now being admitted to [facility] Mr. Schwab is a 79 year old M who was brought into the ER a week ago with menta l status change. Patient was evaluated and due to lack of available discharge planning/background psych issues patient was unable to be discharged. He has been managed in the ER for last 7 days. I was requested to admit the patient to facilitate ongoing care until guardianship could be obtained in a safe discharge plan available. 09/03-patient doing well overnight. No paranoia or agitation. Ambulating and tolerating diet. Ongoing nursing care. Patient wanted to leave AMA last night. Ongoing stoma care. Watching TV. Case management coordinating discharge planning/guardianship. On Zyprexa 2.5 as needed. 09/04-patient doing well. No agitation or paranoia. Unable to sleep all night however slept during the day. Tolerating diet, ambulating requiring Zyprexa 20 mg per 24 hours. Complains of degenerative joint pain currently on Tylenol 09/05-patient doing well. No overnight events. No concerns per staff. Unable to sleep during night but is has been sleeping well during the day. Case management actively coordinating guardianship processing and Medicaid application. Awaiting placement to facility. Patient intermittently grumpy. No fever chills 09/06 Patient seems to be doing well. Not trying to exit. No overnight events. Review of Systems: denies headache/fever/chills/nausea/vomiting/chest or abdominal pain/cough/dyspnea/diarrhea. Otherwise see above. - Constitutional Vitals: Vital Signs Temp Pulse Resp BP Pulse Ox 97.6 F 78 18 130/77 97 09/06/19 07:14 09/06/19 04:00 09/06/19 07:39 09/06/19 07:14 09/06/19 07:14 Period Temp Pulse Resp BP Sys/Rodriguez Pulse Ox Last 24 Hr 97.6 F-98.8 F 67-84 16-20 127-130/68-80 95-98 Intake and Output 09/05/19 09/06/19 09/06/19 21:59 05:59 13:59 Intake Total 720 1760 240 Output Total 150 300 Balance 570 1460 240 Weight 71.668 kg Intake & Output: Intake & Output 09/05/19 09/06/19 09/06/19 21:59 05:59 13:59 Intake Total 720 1760 240 Output Total 150 300 Balance 570 1460 240 Weight 71.668 kg Intake: Oral 720 1760 240 Output: Stool 150 300 Other: Meal Dinner Percent of Meal Consumed 100% Urine Appearance Clear Urine Color Light Jada Urine Odor Normal Stool Size Moderate Moderate Stool Color Brown Brown Brown Stool Consistency Soft Soft Soft Liquid Liquid Liquid # Voids 1 5 Exam: General: Alert, Awake, No acute Distress Eyes/N/T: EOMI, Head/Neck: neck supple, CV: RRR, No murmurs, Pulm: Clear b/l, no wheezing/rhonchi/rales Abd: soft, nontender, +BS x4 Ext: no clubbing/cyanosis/edema Neuro: Alert, no focal deficits, moves all extremities, Skin: warm/dry Medical - PN: Obj Da - Labs CBC & Chem 7: 09/02/19 17:56 09/02/19 17:56 Meds: Medications Acetaminophen (Tylenol) 650 mg PO Q4H [facility]; Protocol Last Admin: 09/06/19 07:59 Dose: 650 mg Documented by: Docusate Sodium (Colace) 100 mg PO BID [facility] Last Admin: 09/06/19 07:59 Dose: 100 mg Documented by: Enoxaparin Sodium (Lovenox) 40 mg SQ DAILY [facility] Last Admin: 09/06/19 07:59 Dose: 40 mg Documented by: Ibuprofen (Motrin) 400 mg PO Q4HP PRN; Protocol PRN Reason: Per Pain Protocol Last Admin: 09/05/19 23:05 Dose: 400 mg Documented by: Levothyroxine S[facility] ([facility]th[facility]) [facility] Last Admin: 09/06/19 06:50 Dose: 25 mcg Documented by: Levothyroxine Sodium (Synthroid) [facility] Last Admin: 09/06/19 06:50 Dose: 112 mcg Documented by: Magnesium Hydroxide (Milk Of Magnesia) 30 ml PO DAILYP PRN PRN Reason: Constipation Melatonin (Melatonin 3mg Tablet) 9 mg PO HSP PRN PRN Reason: Insomnia Last Admin: 09/05/19 21:01 Dose: 9 mg Documented by: Olanzapine (Zyprexa) 2.5 - 5 mg PO Q2HP PRN PRN Reason: Agitation Last Admin: 09/05/19 21:01 Dose: 5 mg Documented by: Olanzapine (Zyprexa) 5 mg PO DAILY [facility] Last Admin: 09/06/19 07:59 Dose: 5 mg Documented by: Tamsulosin HCl (Flomax) 0.4 mg PO HS [facility] Last Admin: 09/05/19 21:03 Dose: 0.4 mg Documented by: Tramadol HCl (Ultram) 50 mg PO TIDP PRN PRN Reason: Pain Last Admin: 09/06/19 06:50 Dose: 50 mg Documented by: Medical - PN: A/P - Time Spent With Patient Total time spent is greater than 50% in coordination of care (as documented) at patient's floor/unit and/or counseling patient: - Narrative A/P Narrative: A: *Advanced dementia w/intermittent psychosis/agitation currently well controlled on Zyprexa (20mg/24 Hrs) -Intermittently forgetful but cooperative. Wants to leave to get son out of [facility]dc -Psychiatry recommends against using Ambien/Seroquel/risperido ne/benzodiazepine or Benadryl due to anticholinergic effect *Colostomy care *Degenerative joint disease: continue scheduled Tylenol, trial of tramadol. Plan: -not safe to discharge home, not allowed to leave AMA, awaiting placement -Continue Zyprexa for intermittent agitation -Frequent reorientation/dementia care -Scheduled Tylenol/trial of tramadol -Ostomy care -PT OT nutrition support -Discharge planning per case management -ppx: lovenox full code Medical - PN: Qual - Stroke Symptom Onset Unknown: No - VTE Deep Vein Thrombosis/Pulmonary Embolism Present on Admission: No
[2019-09-06 10:43] LABS: Basophils # (Auto) 0.09 K/mcL (0.00-0.30); Basophils % (Auto) 1.2 % (0.0-2.0); Eosinophils # (Auto) 0.23 K/mcL (0.00-0.70); Eosinophils % (Auto) 3.1 % (0.0-7.0); Granulocytes % (Auto) 46.8 % (38.0-78.0); Hemoglobin 10.9 g/dL (13.7-17.5); Lymphocytes # (Auto) 2.78 K/mcL (1.50-4.80); Mean Cell Volume 92.2 fL (80.0-100.0); Monocytes % (Auto) 10.9 % (1.0-12.0); Platelet Count 292 K/mcL (140-440); RBC 3.58 M/mcL (4.63-6.08); Red Cell Distribution Width 14.6 % (11.5-14.5); WBC 7.3 K/mcL (4.50-11.00)
[2019-09-06 10:58] LABS: ALT/SGPT 10 U/l (0-40); AST/SGOT 15 U/l (0-37); Albumin 3.7 gm/dL (3.2-5.2); Albumin/Globulin Ratio 1.3 (1.0-2.3); Alkaline Phosphatase 101 U/L (39-117); Bilirubin,Direct < 0.2 mg/dL (0.0-0.3); Bilirubin,Total 0.3 mg/dL (0.0-1.0); Blood Urea Nitrogen 15 mg/dl (8-23); Calcium 8.8 mg/dl (8.6-10.4); Carbon Dioxide 21 mmol/L (22-30); Chloride 105 mmol/L (96-108); Globulin 2.8 gm/dL (2.2-3.7); Glomerular Filtration Rate 64; Glucose 73 mg/dL (70-105); Lactate Dehydrogenase 170 U/L (94-250); Phosphorous 4.2 mg/dL (2.7-4.5); Triglycerides 129 mg/dl (<150); Uric Acid 6.5 mg/dL (2.5-8.0)
[2019-09-06] MEDS: TAMSULOSIN 0.4 MG CAPSULE PO SCH (19:15)
[2019-09-06] MEDS: MELATONIN 3 MG TABLET PO PRN (19:15)
[2019-09-06] MEDS: OLANZapine 2.5 MG TABLET PO PRN (19:15)
[2019-09-07] MEDS: ACETAMINOPHEN 325 MG TABLET PO SCH ×5 (05:49→19:12)
[2019-09-07] MEDS: LEVOTHYROXINE SODIUM 112 MCG TABLET PO SCH (06:38)
[2019-09-07] MEDS: traMADol 50 MG TABLET PO PRN ×3 (06:38→21:37)
[2019-09-07] MEDS: LEVOTHYROXINE 25 MCG TABLET PO SCH (06:38)
[2019-09-07] MEDS: DOCUSATE SODIUM 100 MG CAPSULE PO SCH ×2 (08:44→19:12)
[2019-09-07] MEDS: ENOXAPARIN 40 MG/0.4 ML SYRINGE SQ SCH (08:44)
[2019-09-07] MEDS: OLANZapine 5 MG TABLET PO SCH (08:44)
[2019-09-07] MEDS: IBUPROFEN 200 MG TABLET PO PRN ×2 (13:56→19:27)
[2019-09-07] MEDS: OLANZapine 2.5 MG TABLET PO PRN ×3 (16:14→20:56)
[2019-09-07] MEDS: TAMSULOSIN 0.4 MG CAPSULE PO SCH (19:12)
[2019-09-07] MEDS: MELATONIN 3 MG TABLET PO PRN (19:12)
[2019-09-08] MEDS: ACETAMINOPHEN 325 MG TABLET PO SCH ×6 (02:31→21:14)
[2019-09-08] MEDS: LEVOTHYROXINE SODIUM 112 MCG TABLET PO SCH (09:29)
[2019-09-08] MEDS: OLANZapine 5 MG TABLET PO SCH (09:29)
[2019-09-08] MEDS: DOCUSATE SODIUM 100 MG CAPSULE PO SCH ×2 (09:29→20:04)
[2019-09-08] MEDS: ENOXAPARIN 40 MG/0.4 ML SYRINGE SQ SCH (09:29)
[2019-09-08] MEDS: LEVOTHYROXINE 25 MCG TABLET PO SCH (09:29)
[2019-09-08] MEDS: OLANZapine 2.5 MG TABLET PO PRN ×4 (14:58→22:30)
[2019-09-08] MEDS: TAMSULOSIN 0.4 MG CAPSULE PO SCH (20:04)
[2019-09-08] MEDS: MAG HYDROX/AL HYDROX/SIMETH 30 ML ORAL.SUSP PO PRN (20:04)
[2019-09-08] MEDS: MELATONIN 3 MG TABLET PO PRN (20:05)
[2019-09-08] MEDS: traMADol 50 MG TABLET PO PRN (20:05)
[2019-09-08] MEDS: IBUPROFEN 200 MG TABLET PO PRN (21:13)
[2019-09-09] MEDS: ACETAMINOPHEN 325 MG TABLET PO SCH ×6 (02:49→20:04)
[2019-09-09] MEDS: OLANZapine 2.5 MG TABLET PO PRN ×4 (02:50→20:04)
[2019-09-09] MEDS: traMADol 50 MG TABLET PO PRN ×3 (02:50→21:25)
[2019-09-09 06:46] LABS: Hematocrit 34.1 % (40.1-51.0); Hemoglobin 10.9 g/dL (13.7-17.5); Mean Cell Volume 92.2 fL (80.0-100.0); Mean Platelet Volume 10.3 fL (7.4-10.4); Platelet Count 282 K/mcL (140-440); Red Cell Distribution Width 14.6 % (11.5-14.5); WBC 8.7 K/mcL (4.50-11.00)
[2019-09-09] MEDS: LEVOTHYROXINE 25 MCG TABLET PO SCH (06:55)
[2019-09-09] MEDS: LEVOTHYROXINE SODIUM 112 MCG TABLET PO SCH (06:55)
--- NOTE | 2019-09-09 06:59 | Internal Med Progress Note ---
Medical - PN: Subj Patient information: Note initiated : 09/09/19 at 6:59 am Service Date, if different from initiated Date: [] Patient: Simone Schwab 79 y/o M admitted on 09/02/19 for altered mental status. Chief Complaint: [] Interval history: 08/26 79-year-old male with known moderate to severe dementia comes in via EMS at the request of APS. Apparently he left [facility] yesterday AMA after being admitted for abdominal pain. He was found wandering outside inappropriately dressed for the weather; his ostomy bag was inappropriately open. He is unable to give me any meaningful history or review of system. However he does note that he is having some knee and ankle pain-although he is walking around without difficulty I reviewed the notes from [facility]-he was discharged AMA with some Zyprexa Patient is clearly at his baseline dementia and we do not have any evidence of recurrent infection or inflammatory disease process to account for his worsening behavior. Suspect his dementia is just getting worse with behavioral disturbances becoming more common. While I do not have a medical diagnosis to admit the patient; APS agent, Maddy, came and saw the patient. She is planning on placing him under guardianship with [employer] and looking for a home for him. He is a hoarder and cannot go home to his house nor can he go to the shelter where he was before because of his violent behavior. He will need to go to a lockdown unit. He is on medical hold currently as he is a danger to himself and others because of his severe dementia-we cannot let him go home Bilateral knee x-rays show significant osteoarthritis. He is given Tylenol and then a little bit of hydrocodone later on for pain. He was given Toradol as well He was having trouble settling down so we gave him 5 mg of Haldol which worked for a little bit. We then gave him a little bit of Seroquel as the day wore on. He ended up getting a second dose for total of 200 mg. Patient was able to sleep later on the evening 08/27- This patient has been quite calm and stable throughout his stay here t [facility]. However he is been getting up and wandering vaughn does not seem to want to stay in his room. We did give him Ativan p.o. and finally some Haldol 5 mg IM. He is now in his room sleeping or watching TV. This patient continued to remain quite stable during the night. He was up walking around the ER occasionally. He requested something to help him sleep and we gave him 2 mg of Ativan p.o. He did sleep during the night. He has not been combative agitated or aggressive at all. At this time he still awaits placement. 08/28- I reevaluated this 79-year-old demented patient again today. He is doing well walking eating talking etc. without difficulty. He remains in our ER as we look for placement secondary to his cognitive issues. He remains a danger to himself and others. There is a sitter. Brief review of systems is negative-no trouble eating walking pain shortness of breath or new complaint Social work and administrative staff continue to work on placement for this individual. [place] [employer] was here as well to evaluate the patient. He remains with a sitter. He did have to receive some Ativan last night to help him sleep and we may give him that again. Placement is pending as late as 3 days 08/29- See previous notes. Patient has remained stable overnight and this morning with no complaints except he reports an occasional to intermittent low-grade headache. Later asked for Tylenol which was prescribed. He is not agitated, is interactive and pleasant. Seems to be satisfied with reading and watching TV or videos. Awaiting placement. 08/31- For most of my shift this patient remained quite calm and stable but during the night he had great difficulty sleeping was somewhat agitated and required quite a bit of medication. I finally gave him 10 mg of Haldol IM and he seemed to sleep and be less of a problem the rest of the night. This is on top of Seroquel Zyprexa Ativan. 09/02- I extensively reviewed this patient's medical record from his 25-day admission at [facility] and the medications that he has been on. Have also done some extensive review reference literature on the way to treat agitation and dementia. I decided to limit this patient's medication for agitation to Zyprexa 5 mg twice a day. This is the higher recommended dose but he has been on 2.5 mg and not done well. Over the last 24 hours he did not require Ativan. We have stopped Benadryl Seroquel and Ambien. He continues to get his melatonin 10 mg at bedtime and Zyprexa 5 mg twice a day orally. It is our hope that this will be an adequate regimen to control his symptoms. I did place a call to the psychiatry line and have not heard back from them yet. I was able to speak with Dr. Barnes a psychiatrist at [facility]. She agreed with the approach that we are beginning to take is using only Zyprexa. She recommended stopping Depakote. Recommended against any benzodiazepines and also against Seroquel risperidone and Benadryl. These anticholinergics can have an adverse effect with the patient. Her recommendation is to use Zyprexa as baseline and as needed up to a maximum dose of 20 mg a day. Patient actually does seem to be improved from yesterday. We will continue Zyprexa 5 mg twice a day as a baseline and used 2.5 to 5 mg as needed as needed up to a maximum of 20 mg. 09/02 Patient now being admitted to [facility] Mr. Schwab is a 79 year old M who was brought into the ER a week ago with menta l status change. Patient was evaluated and due to lack of available discharge planning/background psych issues patient was unable to be discharged. He has been managed in the ER for last 7 days. I was requested to admit the patient to facilitate ongoing care until guardianship could be obtained in a safe discharge plan available. 09/03-patient doing well overnight. No paranoia or agitation. Ambulating and tolerating diet. Ongoing nursing care. Patient wanted to leave AMA last night. Ongoing stoma care. Watching TV. Case management coordinating discharge planning/guardianship. On Zyprexa 2.5 as needed. 09/04-patient doing well. No agitation or paranoia. Unable to sleep all night however slept during the day. Tolerating diet, ambulating requiring Zyprexa 20 mg per 24 hours. Complains of degenerative joint pain currently on Tylenol 09/05-patient doing well. No overnight events. No concerns per staff. Unable to sleep during night but is has been sleeping well during the day. Case management actively coordinating guardianship processing and Medicaid application. Awaiting placement to facility. Patient intermittently grumpy. No fever chills 09/06 Patient seems to be doing well. Not trying to exit. No overnight events. 09/09 Seems to be doing well. No overnight events. Sitting up eating breakfast. No new complaints. Review of Systems: denies headache/fever/chills/nausea/vomiting/chest or abdominal pain/cough/dyspnea/diarrhea. Otherwise see above. - Constitutional Vitals: Vital Signs Temp Pulse Resp BP Pulse Ox 97.4 F 62 22 124/72 95 09/09/19 03:26 09/09/19 03:26 09/09/19 03:26 09/09/19 03:26 09/09/19 03:26 Period Temp Pulse Resp BP Sys/Rodriguez Pulse Ox Last 24 Hr 97.4 F-98.6 F 62-77 16-24 110-137/66-77 95-98 Intake and Output 09/08/19 09/09/19 09/09/19 21:59 05:59 13:59 Intake Total 240 1235 Balance 240 1235 Weight 72.167 kg Intake & Output: Intake & Output 09/08/19 09/09/19 09/09/19 21:59 05:59 13:59 Intake Total 240 1235 Balance 240 1235 Weight 72.167 kg Intake: Oral 240 1235 Other: Meal Lunch Percent of Meal Consumed 100% Feeding Ability Independent Stool Color Brown Stool Consistency Soft # Voids 1 2 Exam: General: Alert, Awake, No acute Distress Eyes/N/T: EOMI, Head/Neck: neck supple, CV: RRR, No murmurs, Pulm: Clear b/l, no wheezing/rhonchi/rales Abd: soft, nontender, +BS x4 Ext: no clubbing/cyanosis, mild b/l LE edema Neuro: Alert, no focal deficits, moves all extremities, Skin: warm/dry Medical - PN: Obj Da - Labs CBC & Chem 7: 09/09/19 05:16 09/09/19 05:16 Labs: Abnormal Lab Results 09/09/19 09/06/19 09/06/19 05:16 09:39 09:39 RBC 3.70 L 3.58 L Hgb 10.9 L 10.9 L Hct 34.1 L 33.0 L RDW 14.6 H 14.6 H Carbon Dioxide 21 L Meds: Medications Acetaminophen (Tylenol) 650 mg PO Q4H [facility]; Protocol Last Admin: 09/09/19 06:35 Dose: Not Given Documented by: Al Hydrox/Mg Hydrox/Simethicone (Maalox) 30 ml PO Q4-6HP PRN PRN Reason: Dyspepsia Last Admin: 09/08/19 20:04 Dose: 30 ml Documented by: Calcium Carbonate/Glycine (Tums) 500 mg CHEWED Q4HP PRN PRN Reason: Dyspepsia Docusate Sodium (Colace) 100 mg PO BID [facility] Last Admin: 09/08/19 20:04 Dose: 100 mg Documented by: Enoxaparin Sodium (Lovenox) 40 mg SQ DAILY [facility] Last Admin: 09/08/19 09:29 Dose: 40 mg Documented by: Ibuprofen (Motrin) 400 mg PO Q4HP PRN; Protocol PRN Reason: Per Pain Protocol Last Admin: 09/08/19 21:13 Dose: 400 mg Documented by: Levothyroxine Sodium (Synthroid) 25 mcg PO QAMAC [facility] Last Admin: 09/09/19 06:55 Dose: 25 mcg Documented by: Levothyroxine Sodium (Synthroid) 112 mcg PO QAMAC [facility] Last Admin: 09/09/19 06:55 Dose: 112 mcg Documented by: Magnesium Hydroxide (Milk Of Magnesia) 30 ml PO DAILYP PRN PRN Reason: Constipation Melatonin (Melatonin 3mg Tablet) 9 mg PO HSP PRN PRN Reason: Insomnia Last Admin: 09/08/19 20:05 Dose: 9 mg Documented by: Olanzapine (Zyprexa) 2.5 - 5 mg PO Q2HP PRN PRN Reason: Agitation Last Admin: 09/09/19 02:50 Dose: 2.5 mg Documented by: Olanzapine (Zyprexa) 5 mg PO DAILY [facility] Last Admin: 09/08/19 09:29 Dose: 5 mg Documented by: Tamsulosin HCl (Flomax) 0.4 mg PO HS [facility] Last Admin: 09/08/19 20:04 Dose: 0.4 mg Documented by: Tramadol HCl (Ultram) 50 mg PO TIDP PRN PRN Reason: Pain Last Admin: 09/09/19 02:50 Dose: 50 mg Documented by: Medical - PN: A/P - Time Spent With Patient Total time spent is greater than 50% in coordination of care (as documented) at patient's floor/unit and/or counseling patient: - Narrative A/P Narrative: A: *Advanced dementia w/intermittent psychosis/agitation currently well controlled on Zyprexa (20mg/24 Hrs) -Intermittently forgetful but cooperative. Wants to leave to get son out of nursing home -Psychiatry recommends against using Ambien/Seroquel/risperidone/benzodiazepine or Benadryl due to anticholinergic effect *Colostomy care *Degenerative joint disease: continue scheduled Tylenol, trial of tramadol. Plan: -not safe to discharge home, not allowed to leave AMA, awaiting placement -Continue Zyprexa for intermittent agitation -Frequent reorientation/dementia care -Scheduled Tylenol/trial of tramadol -Ostomy care -PT OT nutrition support -Discharge planning per case management -ppx: lovenox full code Medical - PN: Qual - Stroke Symptom Onset Unknown: No - VTE Deep Vein Thrombosis/Pulmonary Embolism Present on Admission: No
[2019-09-09 07:34] LABS: Band Neutrophils % 2 % (0-10); Lymphocytes % 34 % (15-49); Monocytes % (Manual) 8 % (1-12); Nucleated Red Blood Cells 1 % (0-0); Platelet Estimate NORMAL (NORMAL); RBC Morphology NORMAL (NORMAL); Segmented Neutrophils % 56 % (38-78)
[2019-09-09 07:45] LABS: Bilirubin,Direct < 0.2 mg/dL (0.0-0.3); Bilirubin,Total < 0.2 mg/dL (0.0-1.0); Chloride 101 mmol/L (96-108)
[2019-09-09 07:46] LABS: ALT/SGPT 19 U/l (0-40); AST/SGOT 25 U/l (0-37); Albumin 3.8 gm/dL (3.2-5.2); Albumin/Globulin Ratio 1.5 (1.0-2.3); Alkaline Phosphatase 134 U/L (39-117); Blood Urea Nitrogen 19 mg/dl (8-23); Calcium 9.3 mg/dl (8.6-10.4); Carbon Dioxide 20 mmol/L (22-30); Globulin 2.6 gm/dL (2.2-3.7); Glomerular Filtration Rate 57; Glucose 86 mg/dL (70-105); Lactate Dehydrogenase 213 U/L (94-250); Phosphorous 4.1 mg/dL (2.7-4.5); Triglycerides 141 mg/dl (<150); Uric Acid 6.5 mg/dL (2.5-8.0)
[2019-09-09] MEDS: IBUPROFEN 200 MG TABLET PO PRN ×3 (08:08→23:39)
[2019-09-09] MEDS: DOCUSATE SODIUM 100 MG CAPSULE PO SCH ×2 (08:08→20:04)
[2019-09-09] MEDS: OLANZapine 5 MG TABLET PO SCH (08:08)
[2019-09-09] MEDS: ENOXAPARIN 40 MG/0.4 ML SYRINGE SQ SCH (08:08)
[2019-09-09] MEDS: TAMSULOSIN 0.4 MG CAPSULE PO SCH (20:04)
[2019-09-09] MEDS: MELATONIN 3 MG TABLET PO PRN (21:26)
[2019-09-10] MEDS: ACETAMINOPHEN 325 MG TABLET PO SCH ×6 (03:08→21:40)
[2019-09-10] MEDS: traMADol 50 MG TABLET PO PRN ×2 (07:05→17:15)
[2019-09-10] MEDS: LEVOTHYROXINE 25 MCG TABLET PO SCH (07:06)
[2019-09-10] MEDS: LEVOTHYROXINE SODIUM 112 MCG TABLET PO SCH (07:06)
[2019-09-10] MEDS: DOCUSATE SODIUM 100 MG CAPSULE PO SCH ×2 (08:51→19:04)
[2019-09-10] MEDS: OLANZapine 5 MG TABLET PO SCH (08:51)
[2019-09-10] MEDS: ENOXAPARIN 40 MG/0.4 ML SYRINGE SQ SCH (08:52)
[2019-09-10] MEDS: IBUPROFEN 200 MG TABLET PO PRN ×2 (10:20→19:04)
[2019-09-10] MEDS: OLANZapine 2.5 MG TABLET PO PRN ×4 (11:04→21:39)
[2019-09-10] MEDS: CALCIUM CARBONATE 500 MG TAB.CHEW CHEWED PRN (19:03)
[2019-09-10] MEDS: TAMSULOSIN 0.4 MG CAPSULE PO SCH (19:03)
[2019-09-10] MEDS: MELATONIN 3 MG TABLET PO PRN (19:04)
[2019-09-11] MEDS: ACETAMINOPHEN 325 MG TABLET PO SCH ×6 (02:18→20:20)
[2019-09-11] MEDS: OLANZapine 2.5 MG TABLET PO PRN ×2 (02:18→23:31)
[2019-09-11] MEDS: traMADol 50 MG TABLET PO PRN ×2 (02:19→20:21)
[2019-09-11] MEDS: LEVOTHYROXINE 25 MCG TABLET PO SCH (08:34)
[2019-09-11] MEDS: OLANZapine 5 MG TABLET PO SCH ×2 (08:34→20:21)
[2019-09-11] MEDS: ENOXAPARIN 40 MG/0.4 ML SYRINGE SQ SCH (08:34)
[2019-09-11] MEDS: LEVOTHYROXINE SODIUM 112 MCG TABLET PO SCH (08:34)
[2019-09-11] MEDS: DOCUSATE SODIUM 100 MG CAPSULE PO SCH ×2 (10:14→20:20)
[2019-09-11] MEDS: TAMSULOSIN 0.4 MG CAPSULE PO SCH (20:20)
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
[2019-09-11] MEDS: IBUPROFEN 200 MG TABLET PO PRN (23:32)
[2019-09-12] MEDS: ACETAMINOPHEN 325 MG TABLET PO SCH ×6 (04:33→21:24)
[2019-09-12] MEDS: ASPIRIN 81 MG TAB.CHEW PO SCH (08:33)
[2019-09-12] MEDS: LEVOTHYROXINE 25 MCG TABLET PO SCH (08:33)
[2019-09-12] MEDS: DOCUSATE SODIUM 100 MG CAPSULE PO SCH ×2 (08:33→21:24)
[2019-09-12] MEDS: LEVOTHYROXINE SODIUM 112 MCG TABLET PO SCH (08:33)
[2019-09-12] MEDS: ENOXAPARIN 40 MG/0.4 ML SYRINGE SQ SCH (08:33)
[2019-09-12] MEDS: traMADol 50 MG TABLET PO PRN (14:41)
[2019-09-12] MEDS: OLANZapine 2.5 MG TABLET PO PRN (15:48)
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
[2019-09-12] MEDS: TAMSULOSIN 0.4 MG CAPSULE PO SCH (21:24)
[2019-09-12] MEDS: OLANZapine 5 MG TABLET PO SCH (21:25)
[2019-09-13] MEDS: traMADol 50 MG TABLET PO PRN (00:32)
[2019-09-13] MEDS: ACETAMINOPHEN 325 MG TABLET PO SCH ×6 (00:32→20:42)
[2019-09-13] MEDS: MELATONIN 3 MG TABLET PO PRN ×2 (00:32→20:42)
[2019-09-13] MEDS: IBUPROFEN 200 MG TABLET PO PRN ×2 (01:40→23:37)
--- NOTE | 2019-09-13 08:11 | Cat Scan Report ---
History: Prolapsed ostomy, status post prior colon resection TECHNIQUE: The patient was imaged following scanning from the diaphragm to the symphysis pubis. Sagittal and coronal reformats were created. Radiation exposure was limited using dose reduction technology. FINDINGS: The lung bases are clear. The liver and spleen are normal in size and homogeneous. The gallbladder and bile ducts are normal. There are several surgical clips near the gastroesophageal junction. The pancreas is normal in size and homogeneous. The adrenals are normal. There is no kidney stone or hydronephrosis. Evaluation of abdominal organs without contrast is somewhat limited. The oral contrast is passed through stomach and normal small intestine to the ileocecal valve without obstruction. There is mixed solid liquefied stool in the ascending and transverse colon. Distal transverse colon is decompressed and enters the ostomy located in left anterior abdominal wall. The distal half of the colon has been resected. There still residual sigmoid and rectal stump which is nondistended. Patient has developed a hernia around the ostomy in the anterior abdominal wall. The neck is 2.6 cm in transverse dimension. The sac measures 7.2 x 7.8 cm. There is protrusion of a loop of nonobstructed and noninflamed small bowel into the hernia sac. There is also some protrusion of omental fat. There is no evidence of inflammation at this level. This also no obstruction of the colon. No ascites or adenopathy are present in the abdomen or pelvis. Urinary bladder wall is irregularly thickened and trabeculated. This may be due to chronic bladder obstruction. The prostate is not enlarged. Moderate atherosclerotic disease is present throughout the abdomen and pelvis as well as coronary arteries. Severe degenerative disc disease is present at multiple levels in the lumbar spine and lower thoracic spine. IMPRESSION: Hernia around the ostomy in the left anterior abdominal wall containing nonobstructed small intestine and omental fat. Interpreted and Authenticated by: Sunil Rdz 09/13/19
[2019-09-13] MEDS: LEVOTHYROXINE 25 MCG TABLET PO SCH (08:48)
[2019-09-13] MEDS: ASPIRIN 81 MG TAB.CHEW PO SCH (08:49)
[2019-09-13] MEDS: LEVOTHYROXINE SODIUM 112 MCG TABLET PO SCH (08:49)
[2019-09-13] MEDS: DOCUSATE SODIUM 100 MG CAPSULE PO SCH ×2 (10:12→20:42)
[2019-09-13] MEDS: ENOXAPARIN 40 MG/0.4 ML SYRINGE SQ SCH (10:18)
[2019-09-13] MEDS: OLANZapine 2.5 MG TABLET PO PRN ×4 (10:33→23:38)
--- NOTE | 2019-09-13 17:09 | Internal Med Progress Note ---
Medical - PN: Subj Patient information: Note initiated : 09/13/19 at 5:07 pm Service Date, if different from initiated Date: [] Patient: Simone Schwab 79 y/o M admitted on 09/02/19 for altered mental status. Chief Complaint: [] Interval history: Patient seen yesterday by me and noted to have a large left-sided colostomy prolapse. Patient by old records had ischemic colitis previously. I do not know when he had his colostomy surgery. He pedals with the bag frequently. There is odor of stool in the room. The bag is not obviously leaking however. Patient previously seen at [facility] in [place]. Old records to be obtained. I obtained old records from [facility] and it was indeed Dr. Casey who did ascending colon and sigmoid colon resection 2018 for colitis and Carlos Alberto's. Patient had ischemic bowel at the time. 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 Patient denies pain. He does not think it bothers him very much but he does fixate on it holding or squeezing the ostomy through the bag much of the time during our visits. Patient denies coronary artery disease and per old records he has not had coronary artery disease - Constitutional Vitals: Vital Signs Temp Pulse Resp BP Pulse Ox 98.2 F 64 18 128/78 92 09/13/19 16:00 09/13/19 16:00 09/13/19 16:00 09/13/19 16:00 09/13/19 16:00 Period Temp Pulse Resp BP Sys/Rodriguez Pulse Ox Last 24 Hr 97.6 F-98.2 F 63-68 14-18 117-131/70-79 92-98 Intake and Output 09/13/19 09/13/19 09/13/19 05:59 13:59 21:59 Intake Total 1240 860 280 Balance 1240 860 280 Intake & Output: Intake & Output 09/13/19 09/13/19 09/13/19 05:59 13:59 21:59 Intake Total 1240 860 280 Balance 1240 860 280 Intake: Oral 1240 860 280 Other: Meal Nourishment/Supplement Percent of Meal Consumed 75% 100% Feeding Ability Assist with Tray Set Up Independent Urine Appearance Clear Urine Color Straw Stool Size Large Stool Color Brown Stool Consistency Liquid General appearance: average body habitus - Respiratory Respiratory exam: Present: normal respiratory exam - Cardiovascular Cardiovascular exam: Present: normal rate and rhythm - Extremities Exam Extremities exam: Absent: pedal edema - Neurological Exam Neurological exam: Present: alert, oriented X3 Additional comments: 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 Medical - PN: Obj Da - Labs CBC & Chem 7: 09/09/19 05:16 09/09/19 05:16 Meds: Medications Acetaminophen (Tylenol) 650 mg PO Q4H [facility]; Protocol Last Admin: 09/13/19 14:09 Dose: 650 mg Documented by: Al Hydrox/Mg Hydrox/Simethicone (Maalox) 30 ml PO Q4-6HP PRN PRN Reason: Dyspepsia Last Admin: 09/08/19 20:04 Dose: 30 ml Documented by: Aspirin (Aspirin) 81 mg PO DAILY [facility] Last Admin: 09/13/19 08:49 Dose: 81 mg Documented by: Calcium Carbonate/Glycine (Tums) 500 mg CHEWED Q4HP PRN PRN Reason: Dyspepsia Last Admin: 09/10/19 19:03 Dose: 500 mg Documented by: Docusate Sodium (Colace) 100 mg PO BID [facility] Last Admin: 09/13/19 10:12 Dose: Not Given Documented by: Ibuprofen (Motrin) 400 mg PO Q4HP PRN; Protocol PRN Reason: Per Pain Protocol Last Admin: 09/13/19 01:40 Dose: 400 mg Documented by: [facility] Last Admin: 09/13/19 08:48 Dose: 25 mcg Documented by: Levothyroxine Sodium (Synthroid) 112 mcg PO QAMAC [facility] Last Admin: 09/13/19 08:49 Dose: 112 mcg Documented by: Magnesium Hydroxide (Milk Of Magnesia) 30 ml PO DAILYP PRN PRN Reason: Constipation Melatonin (Melatonin 3mg Tablet) 9 mg PO HSP PRN PRN Reason: Insomnia Last Admin: 09/13/19 00:32 Dose: 9 mg Documented by: Olanzapine (Zyprexa) 2.5 - 5 mg PO Q2HP PRN PRN Reason: Agitation Last Admin: 09/13/19 14:10 Dose: 2.5 mg Documented by: Olanzapine (Zyprexa) 5 mg PO HS [facility] Last Admin: 09/12/19 21:25 Dose: 5 mg Documented by: Tamsulosin HCl (Flomax) 0.4 mg PO [facility] Last Admin: 09/12/19 21:24 Dose: 0.4 mg Documented by: Tramadol HCl (Ultram) 50 mg PO TIDP PRN PRN Reason: Pain Last Admin: 09/13/19 00:32 Dose: 50 mg Documented by: Medical - PN: A/P - Time Spent With Patient Total time spent is greater than 50% in coordination of care (as documented) at patient's floor/unit and/or counseling patient: 25 - 35 minutes (1) Dementia with behavioral problem Problem details: pt currently calm and cooperative on zyprexa scheduled 5mg daily and up to 20 mg daily with PRN. will change scheduled to PM. cont PRN as needed. Status: Acute Current Visit: Yes (2) Amnesia, global, transient Status: Acute Assessment and plan: Patient's amnesia much improved today. 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 Patient denies psychiatric illness other than depression and denies bipolar disease. 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 Status: Acute Assessment and plan: Dr. Grimaldo consulted and recommends revision. Because the patient had a history of [place]'s and ischemic bowel he may be a less good candidate for colostomy takedown and re-anastomosis. Dr. Grimaldo will evaluate. Other option is ileostomy. His colon is somewhat dilated except for the decompressed portion leading right up to the colostomy. Current Visit: Yes Medical - PN: Qual - Stroke Symptom Onset Unknown: No - VTE Deep Vein Thrombosis/Pulmonary Embolism Present on Admission: No
[2019-09-13] MEDS: TAMSULOSIN 0.4 MG CAPSULE PO SCH (20:42)
[2019-09-13] MEDS: OLANZapine 5 MG TABLET PO SCH (20:42)
[2019-09-14] MEDS: ACETAMINOPHEN 325 MG TABLET PO SCH ×6 (00:52→21:39)
[2019-09-14] MEDS: traMADol 50 MG TABLET PO PRN ×2 (01:53→16:18)
[2019-09-14] MEDS: OLANZapine 2.5 MG TABLET PO PRN ×4 (01:53→16:18)
[2019-09-14] MEDS: LEVOTHYROXINE 25 MCG TABLET PO SCH (09:09)
[2019-09-14] MEDS: ASPIRIN 81 MG TAB.CHEW PO SCH (09:09)
[2019-09-14] MEDS: DOCUSATE SODIUM 100 MG CAPSULE PO SCH ×2 (09:09→21:40)
[2019-09-14] MEDS: LEVOTHYROXINE SODIUM 112 MCG TABLET PO SCH (09:09)
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
[2019-09-14] MEDS: MELATONIN 3 MG TABLET PO PRN (21:38)
[2019-09-14] MEDS: IBUPROFEN 200 MG TABLET PO PRN (21:39)
[2019-09-14] MEDS: TAMSULOSIN 0.4 MG CAPSULE PO SCH (21:40)
[2019-09-14] MEDS: OLANZapine 5 MG TABLET PO SCH (21:40)
[2019-09-15] MEDS: ACETAMINOPHEN 325 MG TABLET PO SCH ×6 (06:29→20:39)
[2019-09-15] MEDS: LEVOTHYROXINE 25 MCG TABLET PO SCH (08:01)
[2019-09-15] MEDS: LEVOTHYROXINE SODIUM 112 MCG TABLET PO SCH (08:02)
[2019-09-15] MEDS: IBUPROFEN 200 MG TABLET PO PRN ×2 (10:06→20:37)
[2019-09-15] MEDS: ASPIRIN 81 MG TAB.CHEW PO SCH (10:07)
[2019-09-15] MEDS: DOCUSATE SODIUM 100 MG CAPSULE PO SCH ×2 (10:08→20:38)
[2019-09-15] MEDS: OLANZapine 5 MG TABLET PO SCH (20:38)
[2019-09-15] MEDS: traMADol 50 MG TABLET PO PRN (20:38)
[2019-09-15] MEDS: TAMSULOSIN 0.4 MG CAPSULE PO SCH (20:38)
[2019-09-15] MEDS: MELATONIN 3 MG TABLET PO PRN (21:48)
[2019-09-16] MEDS: ACETAMINOPHEN 325 MG TABLET PO SCH ×6 (02:13→21:01)
[2019-09-16] MEDS: ASPIRIN 81 MG TAB.CHEW PO SCH (09:49)
[2019-09-16] MEDS: LEVOTHYROXINE SODIUM 112 MCG TABLET PO SCH (09:51)
[2019-09-16] MEDS: LEVOTHYROXINE 25 MCG TABLET PO SCH (09:51)
[2019-09-16] MEDS: DOCUSATE SODIUM 100 MG CAPSULE PO SCH ×3 (09:59→20:30)
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
[2019-09-16] MEDS: IBUPROFEN 200 MG TABLET PO PRN (14:18)
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
[2019-09-16] MEDS: TAMSULOSIN 0.4 MG CAPSULE PO SCH ×2 (18:43→20:30)
[2019-09-16] MEDS: OLANZapine 5 MG TABLET PO SCH ×2 (18:43→20:30)
[2019-09-16] MEDS: MELATONIN 3 MG TABLET PO PRN (18:43)
[2019-09-16] MEDS: OLANZapine 2.5 MG TABLET PO PRN ×2 (18:44→22:53)
[2019-09-16] MEDS: traMADol 50 MG TABLET PO PRN (23:34)
[2019-09-17] MEDS: ACETAMINOPHEN 325 MG TABLET PO SCH ×7 (00:31→21:38)
[2019-09-17] MEDS: IBUPROFEN 200 MG TABLET PO PRN ×3 (01:01→14:50)
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
[2019-09-17] MEDS: traMADol 50 MG TABLET PO PRN ×3 (08:32→21:38)
[2019-09-17] MEDS: OLANZapine 2.5 MG TABLET PO PRN ×2 (10:01→14:49)
[2019-09-17] MEDS: ASPIRIN 81 MG TAB.CHEW PO SCH (10:01)
[2019-09-17] MEDS: LEVOTHYROXINE SODIUM 112 MCG TABLET PO SCH (10:01)
[2019-09-17] MEDS: LEVOTHYROXINE 25 MCG TABLET PO SCH (10:01)
[2019-09-17] MEDS: DOCUSATE SODIUM 100 MG CAPSULE PO SCH ×2 (10:01→21:38)
[2019-09-17] MEDS: MELATONIN 3 MG TABLET PO PRN (21:38)
[2019-09-17] MEDS: TAMSULOSIN 0.4 MG CAPSULE PO SCH (21:38)
[2019-09-17] MEDS: OLANZapine 5 MG TABLET PO SCH (21:38)
[2019-09-18] MEDS: ACETAMINOPHEN 325 MG TABLET PO SCH ×5 (03:32→18:19)
[2019-09-18] MEDS: LEVOTHYROXINE SODIUM 112 MCG TABLET PO SCH (13:38)
[2019-09-18] MEDS: ASPIRIN 81 MG TAB.CHEW PO SCH (13:38)
[2019-09-18] MEDS: DOCUSATE SODIUM 100 MG CAPSULE PO SCH ×2 (13:38→23:07)
[2019-09-18] MEDS: LEVOTHYROXINE 25 MCG TABLET PO SCH (13:38)
[2019-09-19] MEDS: TAMSULOSIN 0.4 MG CAPSULE PO SCH ×2 (02:27→20:29)
[2019-09-19] MEDS: ACETAMINOPHEN 325 MG TABLET PO SCH ×7 (02:27→20:29)
[2019-09-19] MEDS: OLANZapine 5 MG TABLET PO SCH ×2 (02:27→20:28)
[2019-09-19] MEDS: OLANZapine 2.5 MG TABLET PO PRN ×3 (04:09→22:47)
[2019-09-19] MEDS: ASPIRIN 81 MG TAB.CHEW PO SCH (08:39)
[2019-09-19] MEDS: LEVOTHYROXINE 25 MCG TABLET PO SCH (08:39)
[2019-09-19] MEDS: LEVOTHYROXINE SODIUM 112 MCG TABLET PO SCH (08:39)
[2019-09-19] MEDS: DOCUSATE SODIUM 100 MG CAPSULE PO SCH ×2 (08:39→20:28)
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
[2019-09-19] MEDS: IBUPROFEN 200 MG TABLET PO PRN ×2 (16:03→22:46)
[2019-09-19] MEDS: MAG HYDROX/AL HYDROX/SIMETH 30 ML ORAL.SUSP PO PRN (20:28)
[2019-09-19] MEDS: traMADol 50 MG TABLET PO PRN (20:29)
[2019-09-19] MEDS: MELATONIN 3 MG TABLET PO PRN (22:47)
[2019-09-20] MEDS: ACETAMINOPHEN 325 MG TABLET PO SCH ×6 (01:06→20:29)
[2019-09-20] MEDS: OLANZapine 2.5 MG TABLET PO PRN ×3 (01:14→22:28)
[2019-09-20] MEDS: LEVOTHYROXINE SODIUM 112 MCG TABLET PO SCH (07:12)
[2019-09-20] MEDS: LEVOTHYROXINE 25 MCG TABLET PO SCH (07:12)
[2019-09-20] MEDS: IBUPROFEN 200 MG TABLET PO PRN ×3 (09:55→22:27)
[2019-09-20] MEDS: DOCUSATE SODIUM 100 MG CAPSULE PO SCH ×2 (09:56→20:30)
[2019-09-20] MEDS: traMADol 50 MG TABLET PO PRN ×2 (09:56→13:41)
[2019-09-20] MEDS: ASPIRIN 81 MG TAB.CHEW PO SCH (09:56)
[2019-09-20] MEDS: OLANZapine 2.5 MG TABLET PO SCH (09:56)
[2019-09-20] MEDS: OLANZapine 5 MG TABLET PO SCH (20:30)
[2019-09-20] MEDS: TAMSULOSIN 0.4 MG CAPSULE PO SCH (20:30)
[2019-09-20] MEDS: MELATONIN 3 MG TABLET PO PRN (22:27)
[2019-09-21] MEDS: ACETAMINOPHEN 325 MG TABLET PO SCH ×6 (00:51→20:09)
[2019-09-21] MEDS: OLANZapine 2.5 MG TABLET PO PRN (00:51)
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
[2019-09-21] MEDS: LEVOTHYROXINE 25 MCG TABLET PO SCH (10:51)
[2019-09-21] MEDS: LEVOTHYROXINE SODIUM 112 MCG TABLET PO SCH (10:51)
[2019-09-21] MEDS: DOCUSATE SODIUM 100 MG CAPSULE PO SCH ×2 (11:51→20:09)
[2019-09-21] MEDS: ASPIRIN 81 MG TAB.CHEW PO SCH (11:52)
[2019-09-21] MEDS: OLANZapine 2.5 MG TABLET PO SCH (11:53)
[2019-09-21] MEDS: TAMSULOSIN 0.4 MG CAPSULE PO SCH (20:09)
[2019-09-21] MEDS: traMADol 50 MG TABLET PO PRN (20:09)
[2019-09-21] MEDS: OLANZapine 5 MG TABLET PO SCH (20:09)
[2019-09-22] MEDS: ACETAMINOPHEN 325 MG TABLET PO SCH ×6 (00:25→20:19)
[2019-09-22] MEDS: OLANZapine 2.5 MG TABLET PO PRN ×2 (00:25→22:07)
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
[2019-09-22] MEDS: LEVOTHYROXINE 25 MCG TABLET PO SCH (08:09)
[2019-09-22] MEDS: LEVOTHYROXINE SODIUM 112 MCG TABLET PO SCH (08:09)
[2019-09-22] MEDS: ASPIRIN 81 MG TAB.CHEW PO SCH (08:09)
[2019-09-22] MEDS: DOCUSATE SODIUM 100 MG CAPSULE PO SCH ×2 (08:09→20:18)
[2019-09-22] MEDS: OLANZapine 2.5 MG TABLET PO SCH (08:09)
[2019-09-22] MEDS: TAMSULOSIN 0.4 MG CAPSULE PO SCH (20:18)
[2019-09-22] MEDS: OLANZapine 5 MG TABLET PO SCH (20:19)
[2019-09-22] MEDS: traMADol 50 MG TABLET PO PRN (20:24)
[2019-09-23] MEDS: ACETAMINOPHEN 325 MG TABLET PO SCH ×6 (00:56→21:02)
[2019-09-23] MEDS: traMADol 50 MG TABLET PO PRN ×2 (00:56→21:07)
[2019-09-23] MEDS: CALCIUM CARBONATE 500 MG TAB.CHEW CHEWED PRN (00:58)
[2019-09-23] MEDS: IBUPROFEN 200 MG TABLET PO PRN ×2 (06:46→14:18)
[2019-09-23] MEDS: LEVOTHYROXINE 25 MCG TABLET PO SCH (07:52)
[2019-09-23] MEDS: LEVOTHYROXINE SODIUM 112 MCG TABLET PO SCH (07:52)
[2019-09-23] MEDS: ASPIRIN 81 MG TAB.CHEW PO SCH (08:33)
[2019-09-23] MEDS: DOCUSATE SODIUM 100 MG CAPSULE PO SCH ×2 (08:33→21:05)
[2019-09-23] MEDS: OLANZapine 2.5 MG TABLET PO SCH (08:33)
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
[2019-09-23] MEDS: OLANZapine 5 MG TABLET PO SCH (21:03)
[2019-09-23] MEDS: TAMSULOSIN 0.4 MG CAPSULE PO SCH (21:03)
[2019-09-23] MEDS: MELATONIN 3 MG TABLET PO PRN (21:06)
[2019-09-24] MEDS: ACETAMINOPHEN 325 MG TABLET PO SCH ×6 (01:34→20:51)
[2019-09-24] MEDS: LEVOTHYROXINE SODIUM 112 MCG TABLET PO SCH (08:58)
[2019-09-24] MEDS: OLANZapine 2.5 MG TABLET PO SCH (08:58)
[2019-09-24] MEDS: ASPIRIN 81 MG TAB.CHEW PO SCH (08:58)
[2019-09-24] MEDS: LEVOTHYROXINE 25 MCG TABLET PO SCH (08:58)
[2019-09-24] MEDS: DOCUSATE SODIUM 100 MG CAPSULE PO SCH ×2 (08:59→20:50)
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
[2019-09-24] MEDS: MELATONIN 3 MG TABLET PO PRN (20:50)
[2019-09-24] MEDS: OLANZapine 5 MG TABLET PO SCH (20:51)
[2019-09-24] MEDS: TAMSULOSIN 0.4 MG CAPSULE PO SCH (20:51)
[2019-09-25] MEDS: ACETAMINOPHEN 325 MG TABLET PO SCH ×6 (02:06→21:26)
[2019-09-25] MEDS: ASPIRIN 81 MG TAB.CHEW PO SCH (10:37)
[2019-09-25] MEDS: OLANZapine 2.5 MG TABLET PO SCH (10:37)
[2019-09-25] MEDS: LEVOTHYROXINE SODIUM 112 MCG TABLET PO SCH (10:37)
[2019-09-25] MEDS: DOCUSATE SODIUM 100 MG CAPSULE PO SCH ×2 (10:37→21:26)
[2019-09-25] MEDS: LEVOTHYROXINE 25 MCG TABLET PO SCH (10:37)
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
[2019-09-25] MEDS: TAMSULOSIN 0.4 MG CAPSULE PO SCH (21:26)
[2019-09-25] MEDS: OLANZapine 5 MG TABLET PO SCH (21:26)
[2019-09-25] MEDS: MELATONIN 3 MG TABLET PO PRN (21:27)
[2019-09-25] MEDS: traMADol 50 MG TABLET PO PRN (22:49)
[2019-09-26] MEDS: ACETAMINOPHEN 325 MG TABLET PO SCH ×6 (01:29→23:32)
[2019-09-26] MEDS: OLANZapine 2.5 MG TABLET PO PRN ×3 (01:30→23:32)
[2019-09-26] MEDS: traMADol 50 MG TABLET PO PRN ×2 (05:15→20:40)
[2019-09-26] MEDS: MAG HYDROX/AL HYDROX/SIMETH 30 ML ORAL.SUSP PO PRN (05:50)
[2019-09-26] MEDS: LEVOTHYROXINE 25 MCG TABLET PO SCH (06:32)
[2019-09-26] MEDS: IBUPROFEN 200 MG TABLET PO PRN ×2 (06:32→14:03)
[2019-09-26] MEDS: LEVOTHYROXINE SODIUM 112 MCG TABLET PO SCH (06:32)
[2019-09-26] MEDS: OLANZapine 2.5 MG TABLET PO SCH (09:17)
[2019-09-26] MEDS: ASPIRIN 81 MG TAB.CHEW PO SCH (09:18)
[2019-09-26] MEDS: DOCUSATE SODIUM 100 MG CAPSULE PO SCH ×2 (09:18→20:41)
[2019-09-26] MEDS: OLANZapine 5 MG TABLET PO SCH (20:40)
[2019-09-26] MEDS: TAMSULOSIN 0.4 MG CAPSULE PO SCH (20:41)
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
[2019-09-26] MEDS: MELATONIN 3 MG TABLET PO PRN (23:33)
[2019-09-27] MEDS: ACETAMINOPHEN 325 MG TABLET PO SCH ×6 (04:30→21:08)
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
[2019-09-27] MEDS: LEVOTHYROXINE 25 MCG TABLET PO SCH (11:18)
[2019-09-27] MEDS: OLANZapine 2.5 MG TABLET PO SCH (11:18)
[2019-09-27] MEDS: LEVOTHYROXINE SODIUM 112 MCG TABLET PO SCH (11:19)
[2019-09-27] MEDS: ASPIRIN 81 MG TAB.CHEW PO SCH (11:19)
[2019-09-27] MEDS: DOCUSATE SODIUM 100 MG CAPSULE PO SCH ×2 (11:19→21:05)
[2019-09-27] MEDS: traMADol 50 MG TABLET PO PRN (21:06)
[2019-09-27] MEDS: TAMSULOSIN 0.4 MG CAPSULE PO SCH (21:06)
[2019-09-27] MEDS: OLANZapine 5 MG TABLET PO SCH (21:06)
[2019-09-27] MEDS: IBUPROFEN 200 MG TABLET PO PRN (23:34)
[2019-09-28] MEDS: ACETAMINOPHEN 325 MG TABLET PO SCH ×6 (01:14→22:12)
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
[2019-09-28] MEDS: DOCUSATE SODIUM 100 MG CAPSULE PO SCH ×2 (13:26→22:10)
[2019-09-28] MEDS: OLANZapine 2.5 MG TABLET PO SCH (13:26)
[2019-09-28] MEDS: LEVOTHYROXINE SODIUM 112 MCG TABLET PO SCH (13:26)
[2019-09-28] MEDS: ASPIRIN 81 MG TAB.CHEW PO SCH (13:27)
[2019-09-28] MEDS: LEVOTHYROXINE 25 MCG TABLET PO SCH (13:27)
[2019-09-28] MEDS: IBUPROFEN 200 MG TABLET PO PRN (22:09)
[2019-09-28] MEDS: TAMSULOSIN 0.4 MG CAPSULE PO SCH (22:10)
[2019-09-28] MEDS: OLANZapine 5 MG TABLET PO SCH (22:10)
[2019-09-29] MEDS: ACETAMINOPHEN 325 MG TABLET PO SCH ×6 (02:09→20:54)
[2019-09-29] MEDS: LEVOTHYROXINE SODIUM 112 MCG TABLET PO SCH (07:29)
[2019-09-29] MEDS: LEVOTHYROXINE 25 MCG TABLET PO SCH (07:29)
[2019-09-29] MEDS: ASPIRIN 81 MG TAB.CHEW PO SCH (09:53)
[2019-09-29] MEDS: DOCUSATE SODIUM 100 MG CAPSULE PO SCH ×2 (09:53→20:55)
[2019-09-29] MEDS: OLANZapine 2.5 MG TABLET PO SCH (09:57)
[2019-09-29] MEDS: TAMSULOSIN 0.4 MG CAPSULE PO SCH (20:54)
[2019-09-29] MEDS: OLANZapine 5 MG TABLET PO SCH (20:54)
[2019-09-29] MEDS: MELATONIN 3 MG TABLET PO PRN (22:37)
[2019-09-30] MEDS: ACETAMINOPHEN 325 MG TABLET PO SCH ×7 (01:06→20:17)
[2019-09-30] MEDS: OLANZapine 2.5 MG TABLET PO PRN ×3 (02:09→23:04)
[2019-09-30] MEDS: traMADol 50 MG TABLET PO PRN ×3 (02:09→23:05)
[2019-09-30] MEDS: IBUPROFEN 200 MG TABLET PO PRN ×3 (02:55→20:16)
[2019-09-30] MEDS: LEVOTHYROXINE SODIUM 112 MCG TABLET PO SCH (07:24)
[2019-09-30] MEDS: LEVOTHYROXINE 25 MCG TABLET PO SCH (07:25)
[2019-09-30] MEDS: DOCUSATE SODIUM 100 MG CAPSULE PO SCH ×2 (09:22→20:17)
[2019-09-30] MEDS: OLANZapine 2.5 MG TABLET PO SCH (09:22)
[2019-09-30] MEDS: ASPIRIN 81 MG TAB.CHEW PO SCH (09:22)
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
[2019-09-30] MEDS: MELATONIN 3 MG TABLET PO PRN (20:16)
[2019-09-30] MEDS: TAMSULOSIN 0.4 MG CAPSULE PO SCH (20:17)
[2019-09-30] MEDS: OLANZapine 5 MG TABLET PO SCH (20:18)
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
[2019-10-01] MEDS: IBUPROFEN 200 MG TABLET PO PRN (00:08)
[2019-10-01] MEDS: MAG HYDROX/AL HYDROX/SIMETH 30 ML ORAL.SUSP PO PRN (00:09)
[2019-10-01] MEDS: ACETAMINOPHEN 325 MG TABLET PO SCH ×6 (01:22→22:25)
[2019-10-01] MEDS: DOCUSATE SODIUM 100 MG CAPSULE PO SCH ×2 (13:18→22:24)
[2019-10-01] MEDS: ASPIRIN 81 MG TAB.CHEW PO SCH (15:09)
[2019-10-01] MEDS: LEVOTHYROXINE 25 MCG TABLET PO SCH (15:09)
[2019-10-01] MEDS: LEVOTHYROXINE SODIUM 112 MCG TABLET PO SCH (15:09)
[2019-10-01] MEDS: OLANZapine 2.5 MG TABLET PO SCH (15:09)
[2019-10-01] MEDS: OLANZapine 5 MG TABLET PO SCH (22:22)
[2019-10-01] MEDS: TAMSULOSIN 0.4 MG CAPSULE PO SCH (22:24)
[2019-10-02] MEDS: ACETAMINOPHEN 325 MG TABLET PO SCH ×6 (01:20→21:29)
[2019-10-02] MEDS: LEVOTHYROXINE SODIUM 112 MCG TABLET PO SCH (08:01)
[2019-10-02] MEDS: LEVOTHYROXINE 25 MCG TABLET PO SCH (08:01)
[2019-10-02] MEDS: ASPIRIN 81 MG TAB.CHEW PO SCH (08:30)
[2019-10-02] MEDS: OLANZapine 2.5 MG TABLET PO SCH (08:30)
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
[2019-10-02] MEDS: DOCUSATE SODIUM 100 MG CAPSULE PO SCH ×2 (08:31→21:29)
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
[2019-10-02] MEDS: OLANZapine 2.5 MG TABLET PO PRN ×2 (16:54→23:59)
[2019-10-02] MEDS: traMADol 50 MG TABLET PO PRN (18:34)
[2019-10-02] MEDS: TAMSULOSIN 0.4 MG CAPSULE PO SCH (21:29)
[2019-10-02] MEDS: OLANZapine 5 MG TABLET PO SCH (21:29)
[2019-10-02] MEDS: MELATONIN 3 MG TABLET PO PRN (23:58)
[2019-10-02] MEDS: IBUPROFEN 200 MG TABLET PO PRN (23:58)
[2019-10-03] MEDS: ACETAMINOPHEN 325 MG TABLET PO SCH ×6 (02:08→22:59)
[2019-10-03] MEDS: traMADol 50 MG TABLET PO PRN ×2 (06:53→15:27)
[2019-10-03] MEDS: LEVOTHYROXINE SODIUM 112 MCG TABLET PO SCH (06:53)
[2019-10-03] MEDS: LEVOTHYROXINE 25 MCG TABLET PO SCH (06:53)
[2019-10-03] MEDS: DOCUSATE SODIUM 100 MG CAPSULE PO SCH ×2 (08:43→23:04)
[2019-10-03] MEDS: OLANZapine 2.5 MG TABLET PO SCH (08:43)
[2019-10-03] MEDS: ASPIRIN 81 MG TAB.CHEW PO SCH (08:43)
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
[2019-10-03] MEDS: OLANZapine 2.5 MG TABLET PO PRN (15:28)
[2019-10-03] MEDS: MELATONIN 3 MG TABLET PO PRN (23:02)
[2019-10-03] MEDS: OLANZapine 5 MG TABLET PO SCH (23:03)
[2019-10-03] MEDS: TAMSULOSIN 0.4 MG CAPSULE PO SCH (23:05)
[2019-10-04] MEDS: traMADol 50 MG TABLET PO PRN ×2 (00:53→18:33)
[2019-10-04] MEDS: ACETAMINOPHEN 325 MG TABLET PO SCH ×6 (01:40→20:42)
[2019-10-04] MEDS: IBUPROFEN 200 MG TABLET PO PRN ×2 (03:34→16:41)
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
[2019-10-04] MEDS: LEVOTHYROXINE SODIUM 112 MCG TABLET PO SCH (08:41)
[2019-10-04] MEDS: ASPIRIN 81 MG TAB.CHEW PO SCH (08:41)
[2019-10-04] MEDS: LEVOTHYROXINE 25 MCG TABLET PO SCH (08:41)
[2019-10-04] MEDS: OLANZapine 2.5 MG TABLET PO SCH (08:41)
[2019-10-04] MEDS: DOCUSATE SODIUM 100 MG CAPSULE PO SCH ×2 (08:42→20:42)
[2019-10-04] MEDS: MELATONIN 3 MG TABLET PO PRN (18:34)
[2019-10-04] MEDS: OLANZapine 2.5 MG TABLET PO PRN (18:34)
[2019-10-04] MEDS: OLANZapine 5 MG TABLET PO SCH (20:42)
[2019-10-04] MEDS: TAMSULOSIN 0.4 MG CAPSULE PO SCH (20:42)
[2019-10-05] MEDS: ACETAMINOPHEN 325 MG TABLET PO SCH ×5 (06:23→21:04)
[2019-10-05] MEDS: DOCUSATE SODIUM 100 MG CAPSULE PO SCH ×2 (11:11→21:04)
[2019-10-05] MEDS: LEVOTHYROXINE 25 MCG TABLET PO SCH (11:11)
[2019-10-05] MEDS: LEVOTHYROXINE SODIUM 112 MCG TABLET PO SCH (11:11)
[2019-10-05] MEDS: ASPIRIN 81 MG TAB.CHEW PO SCH (11:11)
[2019-10-05] MEDS: OLANZapine 2.5 MG TABLET PO SCH (11:11)
[2019-10-05] MEDS: IBUPROFEN 200 MG TABLET PO PRN (18:09)
[2019-10-05] MEDS: TAMSULOSIN 0.4 MG CAPSULE PO SCH (21:04)
[2019-10-05] MEDS: OLANZapine 5 MG TABLET PO SCH (21:04)
[2019-10-05] MEDS: OLANZapine 2.5 MG TABLET PO PRN (23:22)
[2019-10-05] MEDS: MELATONIN 3 MG TABLET PO PRN (23:55)
[2019-10-06] MEDS: ACETAMINOPHEN 325 MG TABLET PO SCH ×6 (02:22→22:22)
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
[2019-10-06] MEDS: LEVOTHYROXINE SODIUM 112 MCG TABLET PO SCH (08:04)
[2019-10-06] MEDS: OLANZapine 2.5 MG TABLET PO SCH (08:04)
[2019-10-06] MEDS: LEVOTHYROXINE 25 MCG TABLET PO SCH (08:04)
[2019-10-06] MEDS: ASPIRIN 81 MG TAB.CHEW PO SCH (08:05)
[2019-10-06] MEDS: DOCUSATE SODIUM 100 MG CAPSULE PO SCH ×2 (08:05→21:42)
[2019-10-06] MEDS: OLANZapine 2.5 MG TABLET PO PRN (22:21)
[2019-10-06] MEDS: TAMSULOSIN 0.4 MG CAPSULE PO SCH (22:21)
[2019-10-06] MEDS: OLANZapine 5 MG TABLET PO SCH (22:22)
[2019-10-06] MEDS: traMADol 50 MG TABLET PO PRN (22:22)
[2019-10-07] MEDS: IBUPROFEN 200 MG TABLET PO PRN ×3 (00:03→23:50)
[2019-10-07] MEDS: MELATONIN 3 MG TABLET PO PRN ×2 (00:03→21:53)
[2019-10-07] MEDS: ACETAMINOPHEN 325 MG TABLET PO SCH ×7 (01:13→21:53)
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
[2019-10-07] MEDS: LEVOTHYROXINE SODIUM 112 MCG TABLET PO SCH (07:13)
[2019-10-07] MEDS: LEVOTHYROXINE 25 MCG TABLET PO SCH (07:13)
[2019-10-07] MEDS: DOCUSATE SODIUM 100 MG CAPSULE PO SCH ×2 (08:59→21:54)
[2019-10-07] MEDS: OLANZapine 2.5 MG TABLET PO SCH (09:00)
[2019-10-07] MEDS: ASPIRIN 81 MG TAB.CHEW PO SCH (09:00)
[2019-10-07] MEDS: OLANZapine 5 MG TABLET PO SCH (21:53)
[2019-10-07] MEDS: TAMSULOSIN 0.4 MG CAPSULE PO SCH (21:53)
[2019-10-07] MEDS: OLANZapine 2.5 MG TABLET PO PRN ×2 (21:53→23:50)
[2019-10-07] MEDS: traMADol 50 MG TABLET PO PRN (21:53)
[2019-10-08] MEDS: OLANZapine 2.5 MG TABLET PO PRN (01:47)
[2019-10-08] MEDS: ACETAMINOPHEN 325 MG TABLET PO SCH ×5 (01:47→17:28)
[2019-10-08] MEDS: LEVOTHYROXINE SODIUM 112 MCG TABLET PO SCH (06:37)
[2019-10-08] MEDS: LEVOTHYROXINE 25 MCG TABLET PO SCH (06:37)
[2019-10-08] MEDS: DOCUSATE SODIUM 100 MG CAPSULE PO SCH (10:57)
[2019-10-08] MEDS: ASPIRIN 81 MG TAB.CHEW PO SCH (10:57)
[2019-10-08] MEDS: OLANZapine 2.5 MG TABLET PO SCH (10:57)
[2019-10-08 16:11] LABS: Free T3 3.2 pg/ml (2.0-4.4); Free T4 (Free Thyroxine) 1.41 ng/dl (0.7-1.7); Thyroid Stimulating Hormone 0.03 uIU/ml (0.27-5.01)
[2019-10-09] MEDS: DOCUSATE SODIUM 100 MG CAPSULE PO SCH ×3 (00:13→22:59)
[2019-10-09] MEDS: ACETAMINOPHEN 325 MG TABLET PO SCH ×6 (00:14→22:59)
[2019-10-09] MEDS: OLANZapine 5 MG TABLET PO SCH ×2 (03:38→22:59)
[2019-10-09] MEDS: TAMSULOSIN 0.4 MG CAPSULE PO SCH ×2 (03:38→22:59)
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
[2019-10-09] MEDS: OLANZapine 2.5 MG TABLET PO SCH (10:27)
[2019-10-09] MEDS: ASPIRIN 81 MG TAB.CHEW PO SCH (10:29)
[2019-10-10] MEDS: OLANZapine 5 MG TABLET PO SCH ×2 (00:15→20:57)
[2019-10-10] MEDS: ACETAMINOPHEN 325 MG TABLET PO SCH ×6 (00:15→20:57)
[2019-10-10] MEDS: OLANZapine 2.5 MG TABLET PO PRN ×2 (01:00→23:03)
[2019-10-10] MEDS: traMADol 50 MG TABLET PO PRN ×2 (01:51→22:07)
[2019-10-10] MEDS: IBUPROFEN 200 MG TABLET PO PRN ×3 (07:25→23:03)
[2019-10-10] MEDS: ASPIRIN 81 MG TAB.CHEW PO SCH (08:08)
[2019-10-10] MEDS: DOCUSATE SODIUM 100 MG CAPSULE PO SCH ×2 (08:09→20:57)
[2019-10-10] MEDS: OLANZapine 2.5 MG TABLET PO SCH (08:09)
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
[2019-10-10] MEDS: TAMSULOSIN 0.4 MG CAPSULE PO SCH (20:57)
[2019-10-10] MEDS: MELATONIN 3 MG TABLET PO PRN (20:57)
[2019-10-11] MEDS: OLANZapine 2.5 MG TABLET PO PRN ×3 (00:30→23:10)
[2019-10-11] MEDS: ACETAMINOPHEN 325 MG TABLET PO SCH ×6 (00:30→21:24)
[2019-10-11] MEDS: LEVOTHYROXINE 100 MCG TABLET PO SCH (06:49)
[2019-10-11] MEDS: OLANZapine 2.5 MG TABLET PO SCH (10:11)
[2019-10-11] MEDS: DOCUSATE SODIUM 100 MG CAPSULE PO SCH ×2 (10:11→20:25)
[2019-10-11] MEDS: ASPIRIN 81 MG TAB.CHEW PO SCH (10:11)
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
[2019-10-11] MEDS: traMADol 50 MG TABLET PO PRN ×2 (15:09→23:10)
[2019-10-11] MEDS: TAMSULOSIN 0.4 MG CAPSULE PO SCH (20:25)
[2019-10-11] MEDS: IBUPROFEN 200 MG TABLET PO PRN (20:25)
[2019-10-11] MEDS: MELATONIN 3 MG TABLET PO PRN (20:25)
[2019-10-11] MEDS: OLANZapine 5 MG TABLET PO SCH (20:25)
[2019-10-12] MEDS: IBUPROFEN 200 MG TABLET PO PRN (00:02)
[2019-10-12] MEDS: ACETAMINOPHEN 325 MG TABLET PO SCH ×6 (01:00→21:38)
[2019-10-12] MEDS ORDERED: LEVOTHYROXINE 100 MCG TABLET PO SCH (07:30)
[2019-10-12] MEDS: LEVOTHYROXINE 100 MCG TABLET PO SCH (08:05)
[2019-10-12] MEDS: DOCUSATE SODIUM 100 MG CAPSULE PO SCH ×2 (09:53→21:35)
[2019-10-12] MEDS: OLANZapine 2.5 MG TABLET PO SCH (09:53)
[2019-10-12] MEDS: ASPIRIN 81 MG TAB.CHEW PO SCH (09:53)
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
[2019-10-12] MEDS: TAMSULOSIN 0.4 MG CAPSULE PO SCH (21:34)
[2019-10-12] MEDS: OLANZapine 5 MG TABLET PO SCH ×2 (21:34→21:43)
[2019-10-13] MEDS: ACETAMINOPHEN 325 MG TABLET PO SCH ×6 (02:16→20:39)
[2019-10-13] MEDS: LEVOTHYROXINE 100 MCG TABLET PO SCH (06:59)
[2019-10-13] MEDS: DOCUSATE SODIUM 100 MG CAPSULE PO SCH ×2 (08:53→21:08)
[2019-10-13] MEDS: OLANZapine 2.5 MG TABLET PO SCH (08:54)
[2019-10-13] MEDS: ASPIRIN 81 MG TAB.CHEW PO SCH (08:54)
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
[2019-10-13] MEDS: TAMSULOSIN 0.4 MG CAPSULE PO SCH (20:39)
[2019-10-13] MEDS: OLANZapine 5 MG TABLET PO SCH (20:39)
[2019-10-13] MEDS: IBUPROFEN 200 MG TABLET PO PRN (21:37)
[2019-10-13] MEDS: traMADol 50 MG TABLET PO PRN (21:57)
[2019-10-14] MEDS: ACETAMINOPHEN 325 MG TABLET PO SCH ×6 (04:52→19:44)
[2019-10-14] MEDS: LEVOTHYROXINE 100 MCG TABLET PO SCH (06:59)
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
[2019-10-14] MEDS: DOCUSATE SODIUM 100 MG CAPSULE PO SCH ×2 (10:13→19:46)
[2019-10-14] MEDS: OLANZapine 2.5 MG TABLET PO SCH (10:13)
[2019-10-14] MEDS: ASPIRIN 81 MG TAB.CHEW PO SCH (10:13)
[2019-10-14] MEDS: OLANZapine 5 MG TABLET PO SCH (19:41)
[2019-10-14] MEDS: MELATONIN 3 MG TABLET PO PRN (19:42)
[2019-10-14] MEDS: TAMSULOSIN 0.4 MG CAPSULE PO SCH (19:42)
[2019-10-14] MEDS: OLANZapine 2.5 MG TABLET PO PRN (22:12)
[2019-10-14] MEDS: IBUPROFEN 200 MG TABLET PO PRN (22:12)
[2019-10-15] MEDS: ACETAMINOPHEN 325 MG TABLET PO SCH ×6 (00:48→20:40)
[2019-10-15] MEDS: traMADol 50 MG TABLET PO PRN ×3 (02:20→20:40)
[2019-10-15] MEDS: LEVOTHYROXINE 100 MCG TABLET PO SCH (07:50)
[2019-10-15] MEDS: OLANZapine 2.5 MG TABLET PO SCH (09:10)
[2019-10-15] MEDS: ASPIRIN 81 MG TAB.CHEW PO SCH (09:10)
[2019-10-15] MEDS: DOCUSATE SODIUM 100 MG CAPSULE PO SCH ×2 (09:10→20:40)
[2019-10-15] MEDS: IBUPROFEN 200 MG TABLET PO PRN ×2 (15:04→19:12)
[2019-10-15] MEDS: TAMSULOSIN 0.4 MG CAPSULE PO SCH (20:40)
[2019-10-15] MEDS: OLANZapine 5 MG TABLET PO SCH (20:40)
[2019-10-15] MEDS: MELATONIN 3 MG TABLET PO PRN (20:40)
[2019-10-16] MEDS: IBUPROFEN 200 MG TABLET PO PRN ×2 (00:23→07:02)
[2019-10-16] MEDS: OLANZapine 2.5 MG TABLET PO PRN (00:23)
[2019-10-16] MEDS: ACETAMINOPHEN 325 MG TABLET PO SCH ×6 (00:24→21:01)
[2019-10-16] MEDS: traMADol 50 MG TABLET PO PRN ×2 (04:25→21:01)
[2019-10-16] MEDS: LEVOTHYROXINE 100 MCG TABLET PO SCH (07:02)
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
[2019-10-16] MEDS: ASPIRIN 81 MG TAB.CHEW PO SCH (12:08)
[2019-10-16] MEDS: DOCUSATE SODIUM 100 MG CAPSULE PO SCH ×2 (12:09→21:01)
[2019-10-16] MEDS: OLANZapine 2.5 MG TABLET PO SCH (12:09)
[2019-10-16] MEDS: OLANZapine 5 MG TABLET PO SCH (21:00)
[2019-10-16] MEDS: MELATONIN 3 MG TABLET PO PRN (21:01)
[2019-10-16] MEDS: TAMSULOSIN 0.4 MG CAPSULE PO SCH (21:01)
[2019-10-17] MEDS: ACETAMINOPHEN 325 MG TABLET PO SCH ×6 (03:10→21:18)
[2019-10-17] MEDS: LEVOTHYROXINE 100 MCG TABLET PO SCH (08:06)
[2019-10-17] MEDS: OLANZapine 2.5 MG TABLET PO SCH (08:09)
[2019-10-17] MEDS: ASPIRIN 81 MG TAB.CHEW PO SCH (08:09)
[2019-10-17] MEDS: traMADol 50 MG TABLET PO PRN ×2 (08:09→17:14)
[2019-10-17] MEDS: DOCUSATE SODIUM 100 MG CAPSULE PO SCH ×2 (08:10→21:17)
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
[2019-10-17] MEDS: IBUPROFEN 200 MG TABLET PO PRN (19:30)
[2019-10-17] MEDS: OLANZapine 5 MG TABLET PO SCH (21:17)
[2019-10-17] MEDS: MELATONIN 3 MG TABLET PO PRN (21:18)
[2019-10-17] MEDS: TAMSULOSIN 0.4 MG CAPSULE PO SCH (21:18)
[2019-10-18] MEDS: ACETAMINOPHEN 325 MG TABLET PO SCH ×7 (01:10→21:27)
[2019-10-18] MEDS: traMADol 50 MG TABLET PO PRN ×2 (02:28→16:11)
[2019-10-18] MEDS: LEVOTHYROXINE 100 MCG TABLET PO SCH (06:39)
[2019-10-18] MEDS: IBUPROFEN 200 MG TABLET PO PRN ×2 (06:39→18:37)
[2019-10-18] MEDS: OLANZapine 2.5 MG TABLET PO SCH (08:40)
[2019-10-18] MEDS: DOCUSATE SODIUM 100 MG CAPSULE PO SCH ×3 (08:40→20:27)
[2019-10-18] MEDS: ASPIRIN 81 MG TAB.CHEW PO SCH (08:40)
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
[2019-10-18] MEDS ORDERED: MELATONIN 3 MG TABLET PO PRN (16:47)
[2019-10-18] MEDS: TAMSULOSIN 0.4 MG CAPSULE PO SCH ×2 (18:37→20:27)
[2019-10-18] MEDS: OLANZapine 5 MG TABLET PO SCH ×2 (18:37→20:27)
[2019-10-18] MEDS: MELATONIN 3 MG TABLET PO PRN (19:53)
[2019-10-18] MEDS: OLANZapine 2.5 MG TABLET PO PRN (21:18)
[2019-10-19] MEDS: ACETAMINOPHEN 325 MG TABLET PO SCH ×6 (00:37→20:50)
[2019-10-19 06:17] LABS: Basophils # (Auto) 0.02 K/mcL (0.00-0.30); Basophils % (Auto) 0.3 % (0.0-2.0); Eosinophils # (Auto) 0.18 K/mcL (0.00-0.70); Eosinophils % (Auto) 2.3 % (0.0-7.0); Granulocytes % (Auto) 54.5 % (38.0-78.0); Hematocrit 33.1 % (40.1-51.0); Hemoglobin 10.8 g/dL (13.7-17.5); Lymphocytes % (Auto) 31.6 % (15.5-49.0); Mean Cell Volume 91.2 fL (80.0-100.0); Mean Corpuscular HGB Conc 32.6 g/dL (31.0-36.0); Mean Platelet Volume 9.4 fL (7.4-10.4); Monocytes # (Auto) 0.89 K/mcL (0.10-0.90); Monocytes % (Auto) 11.3 % (1.0-12.0); Platelet Count 264 K/mcL (140-440); RBC 3.63 M/mcL (4.63-6.08); Red Cell Distribution Width 14.7 % (11.5-14.5); WBC 7.9 K/mcL (4.50-11.00)
[2019-10-19 06:32] LABS: ALT/SGPT 9 U/l (0-40); AST/SGOT 15 U/l (0-37); Albumin 3.8 gm/dL (3.2-5.2); Albumin/Globulin Ratio 1.5 (1.0-2.3); Alkaline Phosphatase 102 U/L (39-117); Bilirubin,Total 0.3 mg/dL (0.0-1.0); Blood Urea Nitrogen 17 mg/dl (8-23); Calcium 8.8 mg/dl (8.6-10.4); Carbon Dioxide 21 mmol/L (22-30); Chloride 102 mmol/L (96-108); Globulin 2.6 gm/dL (2.2-3.7); Glomerular Filtration Rate 71; Glucose 96 mg/dL (70-105)
[2019-10-19] MEDS: LEVOTHYROXINE 100 MCG TABLET PO SCH (13:12)
[2019-10-19] MEDS: ASPIRIN 81 MG TAB.CHEW PO SCH (13:15)
[2019-10-19] MEDS: DOCUSATE SODIUM 100 MG CAPSULE PO SCH ×2 (13:15→20:51)
[2019-10-19] MEDS: OLANZapine 2.5 MG TABLET PO SCH (13:17)
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
[2019-10-19] MEDS: TAMSULOSIN 0.4 MG CAPSULE PO SCH (20:50)
[2019-10-19] MEDS: OLANZapine 5 MG TABLET PO SCH (20:50)
[2019-10-19] MEDS: MELATONIN 3 MG TABLET PO PRN (20:50)
[2019-10-19] MEDS: traMADol 50 MG TABLET PO PRN (22:34)
[2019-10-20] MEDS: ACETAMINOPHEN 325 MG TABLET PO SCH ×6 (02:18→21:37)
[2019-10-20] MEDS: LEVOTHYROXINE 100 MCG TABLET PO SCH (08:57)
[2019-10-20] MEDS: OLANZapine 2.5 MG TABLET PO SCH (08:58)
[2019-10-20] MEDS: ASPIRIN 81 MG TAB.CHEW PO SCH (08:58)
[2019-10-20] MEDS: DOCUSATE SODIUM 100 MG CAPSULE PO SCH ×2 (08:58→21:37)
[2019-10-20] MEDS: ENOXAPARIN 40 MG/0.4 ML SYRINGE SQ SCH (08:59)
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
[2019-10-20] MEDS: MELATONIN 3 MG TABLET PO PRN (21:36)
[2019-10-20] MEDS: OLANZapine 5 MG TABLET PO SCH (21:37)
[2019-10-20] MEDS: TAMSULOSIN 0.4 MG CAPSULE PO SCH (21:37)
[2019-10-20] MEDS: traMADol 50 MG TABLET PO PRN (21:37)
[2019-10-21] MEDS: IBUPROFEN 200 MG TABLET PO PRN ×3 (00:05→22:28)
[2019-10-21] MEDS: OLANZapine 2.5 MG TABLET PO PRN ×3 (00:06→22:28)
[2019-10-21] MEDS: ACETAMINOPHEN 325 MG TABLET PO SCH ×6 (01:37→20:16)
[2019-10-21] MEDS: ASPIRIN 81 MG TAB.CHEW PO SCH (11:28)
[2019-10-21] MEDS: DOCUSATE SODIUM 100 MG CAPSULE PO SCH ×2 (11:29→20:16)
[2019-10-21] MEDS: OLANZapine 2.5 MG TABLET PO SCH (11:29)
[2019-10-21] MEDS: LEVOTHYROXINE 100 MCG TABLET PO SCH (11:30)
[2019-10-21] MEDS: ENOXAPARIN 40 MG/0.4 ML SYRINGE SQ SCH (11:30)
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
[2019-10-21] MEDS: traMADol 50 MG TABLET PO PRN (20:16)
[2019-10-21] MEDS: MELATONIN 3 MG TABLET PO PRN (20:16)
[2019-10-21] MEDS: TAMSULOSIN 0.4 MG CAPSULE PO SCH (20:16)
[2019-10-21] MEDS: OLANZapine 5 MG TABLET PO SCH (20:16)
[2019-10-22] MEDS: ACETAMINOPHEN 325 MG TABLET PO SCH ×6 (01:45→20:17)
[2019-10-22] MEDS: IBUPROFEN 200 MG TABLET PO PRN (06:30)
[2019-10-22] MEDS: DOCUSATE SODIUM 100 MG CAPSULE PO SCH ×2 (08:12→20:18)
[2019-10-22] MEDS: CALCIUM CARBONATE 500 MG TAB.CHEW CHEWED PRN (08:12)
[2019-10-22] MEDS: LEVOTHYROXINE 100 MCG TABLET PO SCH (08:12)
[2019-10-22] MEDS: OLANZapine 2.5 MG TABLET PO SCH (08:12)
[2019-10-22] MEDS: ASPIRIN 81 MG TAB.CHEW PO SCH (08:12)
[2019-10-22] MEDS: ENOXAPARIN 40 MG/0.4 ML SYRINGE SQ SCH (08:13)
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
[2019-10-22] MEDS: TAMSULOSIN 0.4 MG CAPSULE PO SCH (20:18)
[2019-10-22] MEDS: OLANZapine 5 MG TABLET PO SCH (20:18)
[2019-10-22] MEDS: MELATONIN 3 MG TABLET PO PRN (20:19)
[2019-10-23] MEDS: ACETAMINOPHEN 325 MG TABLET PO SCH ×6 (01:38→20:35)
[2019-10-23] MEDS: LEVOTHYROXINE 100 MCG TABLET PO SCH (08:28)
[2019-10-23] MEDS: ASPIRIN 81 MG TAB.CHEW PO SCH (08:28)
[2019-10-23] MEDS: ENOXAPARIN 40 MG/0.4 ML SYRINGE SQ SCH (08:28)
[2019-10-23] MEDS: DOCUSATE SODIUM 100 MG CAPSULE PO SCH ×2 (08:29→20:35)
[2019-10-23] MEDS: OLANZapine 2.5 MG TABLET PO SCH (08:29)
[2019-10-23] MEDS: traMADol 50 MG TABLET PO PRN (17:53)
[2019-10-23] MEDS: IBUPROFEN 200 MG TABLET PO PRN (19:46)
[2019-10-23] MEDS: OLANZapine 5 MG TABLET PO SCH (20:35)
[2019-10-23] MEDS: TAMSULOSIN 0.4 MG CAPSULE PO SCH (20:35)
[2019-10-24] MEDS: traMADol 50 MG TABLET PO PRN ×3 (00:39→22:31)
[2019-10-24] MEDS: ACETAMINOPHEN 325 MG TABLET PO SCH ×6 (01:13→21:42)
[2019-10-24] MEDS: IBUPROFEN 200 MG TABLET PO PRN ×3 (03:56→20:39)
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
[2019-10-24] MEDS: OLANZapine 2.5 MG TABLET PO SCH (08:07)
[2019-10-24] MEDS: ENOXAPARIN 40 MG/0.4 ML SYRINGE SQ SCH (08:08)
[2019-10-24] MEDS: DOCUSATE SODIUM 100 MG CAPSULE PO SCH ×2 (08:08→20:38)
[2019-10-24] MEDS: LEVOTHYROXINE 100 MCG TABLET PO SCH (08:08)
[2019-10-24] MEDS: ASPIRIN 81 MG TAB.CHEW PO SCH (08:08)
[2019-10-24] MEDS: OLANZapine 2.5 MG TABLET PO PRN ×2 (14:45→21:53)
[2019-10-24] MEDS: OLANZapine 5 MG TABLET PO SCH (20:39)
[2019-10-24] MEDS: TAMSULOSIN 0.4 MG CAPSULE PO SCH (20:39)
[2019-10-24] MEDS: MELATONIN 3 MG TABLET PO PRN (20:39)
[2019-10-25] MEDS: ACETAMINOPHEN 325 MG TABLET PO SCH ×6 (02:06→20:40)
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
[2019-10-25] MEDS: LEVOTHYROXINE 100 MCG TABLET PO SCH (10:59)
[2019-10-25] MEDS: ENOXAPARIN 40 MG/0.4 ML SYRINGE SQ SCH (10:59)
[2019-10-25] MEDS: OLANZapine 2.5 MG TABLET PO SCH (10:59)
[2019-10-25] MEDS: DOCUSATE SODIUM 100 MG CAPSULE PO SCH ×2 (10:59→20:41)
[2019-10-25] MEDS: ASPIRIN 81 MG TAB.CHEW PO SCH (10:59)
[2019-10-25] MEDS: traMADol 50 MG TABLET PO PRN (18:04)
[2019-10-25] MEDS: IBUPROFEN 200 MG TABLET PO PRN (20:40)
[2019-10-25] MEDS: OLANZapine 5 MG TABLET PO SCH (20:40)
[2019-10-25] MEDS: MELATONIN 3 MG TABLET PO PRN (20:40)
[2019-10-25] MEDS: TAMSULOSIN 0.4 MG CAPSULE PO SCH (20:41)
[2019-10-26] MEDS: ACETAMINOPHEN 325 MG TABLET PO SCH ×5 (02:02→20:53)
[2019-10-26] MEDS: ENOXAPARIN 40 MG/0.4 ML SYRINGE SQ SCH (15:06)
[2019-10-26] MEDS: ASPIRIN 81 MG TAB.CHEW PO SCH (15:06)
[2019-10-26] MEDS: LEVOTHYROXINE 100 MCG TABLET PO SCH (15:06)
[2019-10-26] MEDS: DOCUSATE SODIUM 100 MG CAPSULE PO SCH ×2 (15:06→20:54)
[2019-10-26] MEDS: OLANZapine 2.5 MG TABLET PO SCH (15:07)
[2019-10-26] MEDS: traMADol 50 MG TABLET PO PRN (17:21)
[2019-10-26] MEDS: OLANZapine 2.5 MG TABLET PO PRN (17:21)
[2019-10-26] MEDS: TAMSULOSIN 0.4 MG CAPSULE PO SCH (20:54)
[2019-10-26] MEDS: MELATONIN 3 MG TABLET PO PRN (20:54)
[2019-10-26] MEDS: IBUPROFEN 200 MG TABLET PO PRN (20:54)
[2019-10-26] MEDS: OLANZapine 5 MG TABLET PO SCH (20:54)
[2019-10-27] MEDS: ACETAMINOPHEN 325 MG TABLET PO SCH ×6 (02:21→19:44)
[2019-10-27] MEDS: LEVOTHYROXINE 100 MCG TABLET PO SCH (07:20)
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
[2019-10-27] MEDS: DOCUSATE SODIUM 100 MG CAPSULE PO SCH ×2 (10:17→19:45)
[2019-10-27] MEDS: OLANZapine 2.5 MG TABLET PO SCH (10:17)
[2019-10-27] MEDS: ASPIRIN 81 MG TAB.CHEW PO SCH (10:17)
[2019-10-27] MEDS: ENOXAPARIN 40 MG/0.4 ML SYRINGE SQ SCH (10:17)
[2019-10-27] MEDS: traMADol 50 MG TABLET PO PRN (11:18)
[2019-10-27] MEDS: IBUPROFEN 200 MG TABLET PO PRN (11:18)
[2019-10-27] MEDS: TAMSULOSIN 0.4 MG CAPSULE PO SCH (19:43)
[2019-10-27] MEDS: OLANZapine 2.5 MG TABLET PO PRN (19:44)
[2019-10-27] MEDS: OLANZapine 5 MG TABLET PO SCH (19:44)
[2019-10-27] MEDS: MELATONIN 3 MG TABLET PO PRN (19:44)
[2019-10-28] MEDS: ACETAMINOPHEN 325 MG TABLET PO SCH ×6 (01:58→19:40)
[2019-10-28] MEDS: LEVOTHYROXINE 100 MCG TABLET PO SCH (07:42)
[2019-10-28] MEDS: OLANZapine 2.5 MG TABLET PO SCH (09:27)
[2019-10-28] MEDS: DOCUSATE SODIUM 100 MG CAPSULE PO SCH ×2 (09:27→19:39)
[2019-10-28] MEDS: ASPIRIN 81 MG TAB.CHEW PO SCH (09:28)
[2019-10-28] MEDS: ENOXAPARIN 40 MG/0.4 ML SYRINGE SQ SCH (09:28)
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
[2019-10-28] MEDS: traMADol 50 MG TABLET PO PRN (18:35)
[2019-10-28] MEDS: IBUPROFEN 200 MG TABLET PO PRN (18:36)
[2019-10-28] MEDS: OLANZapine 2.5 MG TABLET PO PRN (18:37)
[2019-10-28] MEDS: MELATONIN 3 MG TABLET PO PRN (19:39)
[2019-10-28] MEDS: TAMSULOSIN 0.4 MG CAPSULE PO SCH (19:40)
[2019-10-28] MEDS: OLANZapine 5 MG TABLET PO SCH (19:40)
[2019-10-29] MEDS: ACETAMINOPHEN 325 MG TABLET PO SCH ×6 (00:59→23:20)
[2019-10-29] MEDS: ASPIRIN 81 MG TAB.CHEW PO SCH (10:05)
[2019-10-29] MEDS: OLANZapine 2.5 MG TABLET PO SCH (10:05)
[2019-10-29] MEDS: DOCUSATE SODIUM 100 MG CAPSULE PO SCH ×2 (10:05→23:21)
[2019-10-29] MEDS: LEVOTHYROXINE 100 MCG TABLET PO SCH (10:05)
[2019-10-29] MEDS: ENOXAPARIN 40 MG/0.4 ML SYRINGE SQ SCH (10:05)
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
[2019-10-29] MEDS: TAMSULOSIN 0.4 MG CAPSULE PO SCH (23:19)
[2019-10-29] MEDS: MELATONIN 3 MG TABLET PO PRN (23:20)
[2019-10-29] MEDS: OLANZapine 5 MG TABLET PO SCH (23:20)
[2019-10-30] MEDS: ACETAMINOPHEN 325 MG TABLET PO SCH ×2 (01:00→05:39)
[2019-10-30] MEDS: LEVOTHYROXINE 100 MCG TABLET PO SCH (07:12)
== END 2019-10-30 08:00 ==
LOC: ED 14:33 → MEDSUR 09-02 18:33 → INTOOBSV 09-02 18:33 → MEDSUR 10-08 13:32
PROVIDERS: ADMIT Internal Medicine; ATTEND Internal Medicine